=== PATIENT | female | born 1990 | race Caucasian/White ===

== ENCOUNTER 2020-04-11 15:29 | Outpatient (CLI) | payer OTHER, SELFPAY ==
--- NOTE | ~2020-04-11 | US_ITS ---
EXAMINATION: US pelvic complete w TV DATE: 04/11/2020 16:05 INDICATION: Enlarged ovary TECHNIQUE: Multiple transabdominal and endovaginal sonographic images of the pelvis were obtained. COMPARISON: CT, 10/18/2017 FINDINGS: The uterus measures 8.3 x 3.4 x 4.8 cm. The endometrial complex measures 12 mm. The right o vary measures 3.4 x 2.6 x 2.2 cm. The left ovary measures 3.3 x 2.3 x 1.8 cm. Again seen are prominen t vessels of the left adnexa. There is normal vascular flow in the ovaries. There is no free fluid in the pelvis. IMPRESSION: 1. Normal size ovaries. Chronic enlargement of the left adnexal vessels, consistent with pelvic venou s insufficiency. Reviewed, dictated and finalized at location A. IMPRESSION: 1. Normal size ovaries. Chronic enlargement of the left adnexal vessels, consis tent with pelvic venous insufficiency.
== END 2020-04-11 15:30 | disposition home or self-care (01) ==
PROVIDERS: PCP Internal Medicine; Visit Provider Obstetrics & Gynecology
DX: R10.2 Pelvic and perineal pain (principal)
CPT/HCPCS: 76830; 76856

== ENCOUNTER 2020-05-28 16:37 | Emergency (ER) | payer OTHER, SELFPAY ==
--- NOTE | ~2020-05-28 | XR_ITS ---
XR toe 5th RT min 2V 05/28/2020 17:14 INDICATION: Right fifth toe pain PROCEDURE: 3 views right fifth toe COMPARISON: 10/07/2015 FINDINGS: Fracture, dislocation or subluxation is not identified. The soft tissues appear within norm al limits. No foreign bodies are identified. IMPRESSION: 1: NO ACUTE BONE OR JOINT ABNORMALITY IDENTIFIED. Reviewed, dictated and finalized at location A.
--- NOTE | 2020-05-28 16:44 | ED.LOWEXIN ---
HPI - Extremity Injury (Lower) General Chief Complaint: Extremity Injury, Lower Stated Complaint: Right toe injury Time Seen by Provider: 05/28/20 16:44 Source: patient and RN notes reviewed History of Present Illness HPI Narrative: Patient is a 30-year-old female who presents the urgent care with complaints of a right great toe injury. Patient states that she was walking up the steps Thursday and flip-flo and stubbed her right great toe on the concrete stair. Patient states that she took Tylenol today due to the pain. Patient states that the pain was so bad that it was causing her to vomit while at work . Patient states that Thursday and Thursday the pain was not as bad because she was elevating and icing. No other acute complaints. No acute distress noted. Patient read the plan of care. Related Data Allergies Allergy/AdvReac Type Severity Reaction Status Date / Time red dye Allergy Unknown Unknown Verified 05/28/20 16:53 trazodone AdvReac Unknown nightmares Verified 05/28/20 16:53 Review of Systems Review of Systems: Narrative: CONSTITUTIONAL: Denies fever, chills, or sweats. EYES: Denies visual changes, redness, or discharge. ENT: Denies rhinorrhea, congestion, sore throat, or otalgia. CARDIOVASCULAR: Denies chest pain, palpitations, or edema. RESPIRATORY: Denies cough or dyspnea. GASTROINTESTINAL: Denies abdominal pain, nausea, vomiting, or diarrhea. GENITOURINARY: Denies dysuria or hematuria. SKIN: Reports of a wound to the tip of the right pinky toe MUSCULOSKELETAL: Reports of lateral right foot pain and right pinky toe pain NEUROLOGIC: Denies headache, numbness, or weakness. All other systems reviewed are negative, except as documented in HPI. [facility] Past Medical History Medical History (Updated 05/28/20 @ 17:24 by FELISA Pena) Acute Crohn's disease without complication IBS (irritable bowel syndrome) Social History Social History Gender identity (if verbalized by the patient): Female Comments At the time of my signature, I reviewed and agree with the nursing past medical, surgical, social, and family history. There is no relevant family history pertinent to the patient complaint. Exam Narrative: Exam Narrative: GENERAL: This is a well-nourished, well-developed patient, in no apparent distress. HEAD: normocephalic, atraumatic. EYES: PERRL. Sclera clear/white. Vision is grossly intact. EARS: External ears normal NOSE: External nose normal with no obvious nasal discharge, nares without redness, no rhinorrhea. THROAT: Mucous membranes moist NECK: Neck supple SKIN: 0.5 circular skin abrasion noted to the tip of the right fifth toe NEURO: awake, alert, and oriented to person, place and time. There were no obvious focal neurologic abnormalities. EXTREMITIES: Mild ecchymosis noted to the lateral aspect of the right foot with moderate tenderness. Capillary refill to right lower extremity less than 2 seconds with positive strong right pedal pulse. Range of motion to right foot within normal limits. Course Vital Signs Vital signs: Vital Signs Temperature 98.6 F 05/28/20 16:45 Pulse Rate 75 05/28/20 16:45 Respiratory Rate 18 05/28/20 16:45 Blood Pressure 132/83 05/28/20 16:45 Pulse Oximetry 100 05/28/20 16:45 Temperature 98.7 F 05/28/20 16:53 Pulse Rate 104 H 05/28/20 16:53 Respiratory Rate 16 05/28/20 16:53 Blood Pressure 121/68 05/28/20 16:53 Pulse Oximetry 100 05/28/20 16:53 Reviewed MDM - Extremity Injury (Lower) MDM Narrative Medical decision making narrative: Reviewed x-ray results with the patient. She is aware the x-ray was negative for fracture, foreign body. Advised the patient to soak the toe and plain Dial soap and water at least twice a day and make sure she is cleaning the wound appropriately. Be aware of signs and symptoms of infection such as redness, swelling, increased pain to the wound. May
[2020-05-28 16:45] VITALS: BP 132/83; PULSE 75; RESP 18; TEMP 37; O2SAT 100
== END 2020-05-28 17:20 | disposition home or self-care (01) ==
PROVIDERS: Emergency Provider Nurse Practitioner Family; PCP Internal Medicine
DX: S90.121A Contusion of right lesser toe(s) without damage to nail, initial encounter (principal); W22.8XXA Striking against or struck by other objects, initial encounter
CPT/HCPCS: 73660; 99213; G0463

== ENCOUNTER 2021-10-08 14:31 | Emergency (ER) | payer SELFPAY ==
--- NOTE | 2021-10-08 15:10 | ED.SKABFB ---
HPI - Skin/Abscess/Foreign Bdy General Chief complaint: Extremity Injury, Lower Stated complaint: Thinks she has spider bite behind knee Time Seen by Provider: 10/08/21 15:10 Source: patient Mode of arrival: ambulatory History of Present Illness HPI narrative: 31-year-old female with a history of Crohn's disease, IBS, colonic polyps presents with -- left popliteal fossa abscess measuring 2.5 cm. -- Severe pain in the left popliteal fossa. No fever or chills. No prior abscesses are history of MRSA. MD complaint: abscess/boil Onset (ago): day(s) ( 1st noticed 2 days ago but the abscess seemed to have developed over the past 24 hours) Tetanus up to date: no Location: LLE Severity: moderate Severity scale (1-10): 8 Quality: aching Pain Consistency: constant Relieving factors: none Exacerbating factors: none Associated symptoms: denies other symptoms Treatments prior to arrival: none Related Data Allergies Allergy/AdvReac Type Severity Reaction Status Date / Time red dye Allergy Unknown Unknown Verified 10/08/21 15:17 trazodone AdvReac Unknown nightmares Verified 10/08/21 15:17 Review of Systems Review of Systems: All systems reviewed & are unremarkable except as noted in HPI and below Constitutional: Constitutional: Reports no additional constitutional complaints Eyes: Eyes: Reports as per HPI ENT: Reports system reviewed and no additional complaints, except as documented Cardiovascular: Cardiovascular: Reports no additional cardiovascular complaints Respiratory: Respiratory: Reports no additional respiratory complaints Gastrointestinal: Gastrointestinal: Reports no additional gastrointestinal complaints Genitourinary: Genitourinary: Reports other ( amenorrhea for the past 2 months) Musculoskeletal: Musculoskeletal: Reports limited range of motion ( limited left knee joint movement) Neurologic: Reports system reviewed and no additional complaints, except as documented Psychiatric: Psychiatric: Reports no additional psychiatric complaints Endocrine: Endocrine: Reports no additional endocrine complaints Hematologic/Lymphatic: Hematologic/Lymphatic: Reports no additional hematologic/lymphatic complaints Allergic/Immunologic: Allergic/Immunologic: Reports no additional allergic/immunologic complaints [facility] Past Medical History Medical History Acute Crohn's disease without complication Colonic polyp IBS (irritable bowel syndrome) Family History Family History Other Colon polyp Social History Social History Gender identity (if verbalized by the patient): Female Exam Const: General: cooperative and anxious Nutritional Appearance: malnourished Orientation/consciousness: oriented to person, oriented to place, oriented to time and patient oriented x3 Limitations: no limitations HENMT: Head: normal to inspection Ears: hearing grossly normal bilaterally General nose exam: Normal external nose present Face and sinus: normal facial exam, sinuses nontender and face symmetric Mouth: Yes Normal oral and palatal mucosa present Teeth and gingiva: dentition normal Throat: posterior oropharynx normal Eyes: General: appearance normal, both eyes and all related structures Neck: Neck: normal visual inspection, full ROM and no lymphadenopathy Resp: Effort & Inspection: normal respiratory effort and able to speak in complete sentences Auscultation: clear to auscultation bilaterally Cardio: Jugular venous distension: no JVD Palpation: normal PMI Rate: regular rate Rhythm: regular rhythm and abnormal rhythm Heart sounds: S1 normal heart sound present and S2 normal heart sound present Peripheral pulses: Peripheral pulses 2+ throughout GI: Inspection: normal to inspection Auscultation: normal bowel sounds Other: no tenderness/ rigidity /re
[2021-10-08 15:13] VITALS: BP 116/85; PULSE 98; RESP 20; TEMP 36.8; O2SAT 98
[2021-10-08] MEDS: ONDANSETRON HCL ODT 4 MG TABLET PO (15:53)
[2021-10-08 16:01] LABS: Pregnancy On Board Control Positive; Urine Pregnancy Test Negative
[2021-10-08 16:03] LABS: Basophils Percent Auto 0.8 % (0.0-1.0); Eosinophils Absolute Auto 0.17 K/mm3 (0.02-0.50); Eosinophils Percent Auto 1.3 % (1.0-6.0); Hematocrit 48.5 % (35.0-49.0); Hemoglobin 16.2 g/dL (12.0-15.0); Immature Granulocyte Absolute 0.04 K/mm3 (0.00-0.00); Immature Granulocyte Percent A 0.3 % (0.0-0.0); Lymphocytes Absolute Auto 2.13 K/mm3 (1.10-4.50); Lymphocytes Percent Auto 16.8 % (18.0-42.0); Mean Corpuscular HGB Conc 33.4 g/dL (32.0-36.0); Mean Corpuscular Hemoglobin 31.3 pg (27.0-31.0); Mean Corpuscular Volume 93.8 fL (78.0-102.0); Mean Platelet Volume 9.3 fl (9.2-11.8); Monocytes Absolute Auto 1.25 K/mm3 (0.10-0.90); Monocytes Percent Auto 9.9 % (2.0-11.0); Neutrophils Percent Auto 70.9 % (50.0-70.0); Platelet Count Result 361 K/mm3 (150-420); Red Blood Count 5.17 M/mm3 (4.20-5.40); Red Cell Distribution Width 13.9 % (11.6-14.4); White Blood Count 12.7 K/mm3 (4.8-10.8)
[2021-10-08] MEDS: HYDROmorphone HCL INJ (*CRX) 2 MG/ML VIAL 1 MG IM (16:09)
[2021-10-08 16:19] LABS: Alanine Aminotransferase 18 U/L (14-59); Albumin Level 4.3 g/dL (3.4-5.0); Alkaline Phosphatase 137 U/L (46-116); Anion Gap 9 mmol/L (8-16); Aspartate Amino Transferase 12 U/L (15-37); Bilirubin,Total 0.6 mg/dL (0.00-1.00); Blood Urea Nitrogen 10 mg/dL (7-18); Calcium 9.2 mg/dL (8.5-10.1); Carbon Dioxide 28 mmol/L (21-32); Chloride 101 mmol/L (98-108); Estimated CRCL calculation 73 ml/min; Estimated Glomerular Filt Rate > 60; Glucose 82 mg/dL (70-99); Osmolality Calculated 284 mOsm/kg (285-295); Potassium 3.7 mmol/L (3.5-5.1); Sodium 138 mmol/L (136-145); Total Protein 8.5 g/dL (6.4-8.2)
[2021-10-08 16:24] LABS: Lactic Acid Reflex 0.9 mmol/L (0.4-2.0)
[2021-10-08] MEDS: TETANUS,DIPHTHERIA,AC PERTUSSIS ADULT 0.5 ML (ADACEL) IM (16:41)
[2021-10-08] MEDS: AMOXICILLIN/CLAVULANATE K 875-125 MG TAB 1 TABLET (16:42)
[2021-10-08 17:20] VITALS: BP 126/85; PULSE 89; RESP 20; TEMP 36.8; O2SAT 97
== END 2021-10-08 17:21 | disposition home or self-care (01) ==
PROVIDERS: Emergency Provider Internal Medicine Critical Care Medicine; PCP Internal Medicine
DX: L02.416 Cutaneous abscess of left lower limb (principal); E86.0 Dehydration
CPT/HCPCS: 10061; 36415; 80053; 81025; 83605; 85025; 87040; 87070; 87075; 87147; 87186; 87205; 90471; 90715; 96372; 99283; A9270; J1170

== ENCOUNTER 2024-06-24 09:36 | Emergency (ER) | payer SELFPAY ==
--- NOTE | ~2024-06-24 | CT_ITS ---
EXAMINATION: CT abdomen pelvis w con DATE: 06/24/2024 12:23 INDICATION: Left abdominal pain. TECHNIQUE: Computed tomography (CT) of the abdomen and pelvis was performed with 100 mL Omnipaque 350 intravenous contrast. Automated exposure control and iterative reconstruction technique were employe d. The dose-length product was 222.35 mGy-cm. COMPARISON: CT abdomen and pelvis 10/18/17 FINDINGS: The visualized portions of the lung bases are clear without pneumonia or pleural effusion. The heart size is normal. No pericardial effusion. The liver and spleen are normal. There are changes of cholecystectomy. The pancreas, adrenal glands, and kidneys are normal. There is diverticulosis of the colon without evidence of diverticulitis. There are no dilated loops of bowel. The appendix is n ormal. There are no pathologically enlarged lymph nodes. There is no free intraperitoneal fluid. Ther e is mild lumbar spondylosis. IMPRESSION: 1. No etiology for the patient's symptoms. Reviewed, dictated and finalized at location A.
[2024-06-24 09:46] VITALS: BP 130/97; PULSE 94; RESP 18; TEMP 36.4; O2SAT 100
[2024-06-24 11:40] LABS: BEDSIDEPREGUCG Negative
[2024-06-24 11:43] LABS: Basophils Absolute Auto 0.1 K/mm3 (0.0-0.1); Eosinophils Absolute Auto 0.1 K/mm3 (0-0.3); Eosinophils Percent Auto 1.1 % (0-4.4); Hematocrit 41.9 % (37.0-47.0); Hemoglobin 13.5 g/dL (12.0-15.0); Immature Granulocyte Absolute 0.01 K/mm3 (0.00-0.031); Immature Granulocyte Percent A 0.1 % (0-0.5); Lymphocytes Percent Auto 21.4 % (18.3-44.2); Mean Corpuscular HGB Conc 32.2 g/dl (32-36); Mean Corpuscular Hemoglobin 29.9 pg (26-34); Mean Corpuscular Volume 92.9 fl (80-100); Monocytes Absolute Auto 0.7 K/mm3 (0.1-0.6); Monocytes Percent Auto 10.3 % (2.6-8.5); Neutrophils Absolute Auto 4.6 K/mm3 (1.3-6.7); Neutrophils Percent Auto 66.1 % (45.5-73.1); Platelet Count Result 359 k/mm3 (150-375); Red Blood Count 4.51 M/mm3 (4.2-5.4); Red Cell Distribution Width 13.5 % (11.5-14.5)
[2024-06-24 11:46] LABS: Add Urine Microscopic? NO; Appearance Urine Clear (Clear); Bilirubin Urine Negative (Negative); Blood Urine Negative (Negative); Color Urine Yellow (Yellow); Glucose Urine UA Negative (Negative); Ketones Urine Negative (Negative); Leukocyte Esterase Ur Negative LEU/UL (Negative); Nitrate Urine Negative (Negative); Protein Urine Negative (Negative); Specific Grav Ur 1.018 (1.001-1.035); Urobilinogen Urine 0.2 mg/dL (<2.0); pH Urine 7.5 (5.0-9.0)
[2024-06-24 11:57] LABS: Alanine Aminotransferase 20 U/L (6-35); Albumin Level 4.7 g/dL (3.5-5.1); Alkaline Phosphatase 99 U/L (38-126); Anion Gap 8 mmol/L (4-12); Aspartate Amino Transferase 28 U/L (14-36); Bilirubin,Total 0.5 mg/dL (0.2-1.3); Blood Urea Nitrogen 8 mg/dL (7-17); Calcium 9.1 mg/dL (8.4-10.2); Carbon Dioxide 23 mmol/L (22-30); Chloride 106 mmol/L (98-107); Estimated CRCL calculation 103 ml/min; Estimated Glomerular Filt Rate > 60; Glucose 86 mg/dL (65-110); Lipase 105 U/L (23-300); Potassium 4.2 mmol/L (3.4-5.0); Sodium 137 mmol/L (137-145)
[2024-06-24] MEDS: SODIUM CHLORIDE 0.9% IV 1,000 ML 999 ML IV CONT (12:00)
[2024-06-24] MEDS: ONDANSETRON INJ 4 MG/2 ML VIAL IV PUSH (12:00)
[2024-06-24] MEDS: MORPHINE SULFATE (*CRX) 4 MG/ML INJ IV PUSH (12:01)
--- NOTE | 2024-06-24 12:36 | ED.GENADULT ---
HPI - General Adult General Chief complaint: Abdominal Pain Stated complaint: Left Flank Pain Time Seen by Provider: 06/24/24 11:23 History of Present Illness HPI narrative: Patient is a 34-year-old female who presents ER with left-sided abdominal pain/flank pain. Sudden onset today while or. Caused her to fall to the ground. She has had a mild stinging when she urinates. No urinary frequency urgency. No fevers or chills or sweats. Patient has been having diarrhea for 3 days. No blood in her stool. She has history of diverticulitis and no history of kidney stones. She has been having some nausea associated with this. No known sick contacts. No alleviating factors. Related Data Allergies Allergy/AdvReac Type Severity Reaction Status Date / Time red dye Allergy Unknown Unknown Verified 10/08/21 15:17 trazodone AdvReac Unknown nightmares Verified 10/08/21 15:17 Review of Systems Review of Systems: All systems reviewed & are unremarkable except as noted in HPI and below Constitutional: Constitutional: Reports no additional constitutional complaints ENT: Reports system reviewed and no additional complaints, except as documented Cardiovascular: Cardiovascular: Reports no additional cardiovascular complaints Respiratory: Respiratory: Reports no additional respiratory complaints Gastrointestinal: Gastrointestinal: Reports abdominal pain, Reports diarrhea, Reports nausea and Reports vomiting Genitourinary: Genitourinary: Reports no additional female genitourinary complaints Integumentary/Breasts: Skin/Breast: Reports system reviewed and no additional complaints, except as docu PMFSH Past Medical History Medical History Acute Crohn's disease without complication Colonic polyp IBS (irritable bowel syndrome) Family History Family History Other Colon polyp Social History Social History Gender identity (if verbalized by the patient): Female Exam Narrative: GENERAL: Well-appearing, well-nourished, and in no acute distress. HEAD: Normocephalic, atraumatic. ENT: Mucous membranes moist. CHEST: Clear to auscultation. No respiratory distress. HEART: Regular rate and rhythm. Normal peripheral pulses. ABDOMEN: Soft, tender to palpation left upper quadrant with guarding, nondistended. No CVA tenderness EXTREMITIES: Normal range of motion. No edema. SKIN: Warm, dry, no rash. NEURO: Alert and oriented x3. PSYCH: Normal mood and affect. Course Vital Signs Vital signs: Vital Signs Temperature 97.6 F 06/24/24 09:46 Pulse Rate 94 06/24/24 09:46 Respiratory Rate 18 06/24/24 09:46 Blood Pressure 130/97 H 06/24/24 09:46 Pulse Oximetry 100 06/24/24 09:46 Oxygen Delivery Room Air 06/24/24 09:46 Temperature 97.6 F 06/24/24 09:46 Pulse Rate 94 06/24/24 09:46 Respiratory Rate 18 06/24/24 09:46 Blood Pressure 130/97 H 06/24/24 09:46 Pulse Oximetry 100 06/24/24 09:46 Oxygen Delivery Room Air 06/24/24 09:46 Medical Decision Making MDM Narrative Medical decision making narrative: -Course: Patient resting comfortably. Informed of results. -Co-morbidities complicating care: None -Social determinants of health: Works at the [employer] -External Chart Review: None -Hx from independent Sources: Patient -Independent interpretation of studies: Normal CBC/CMP/urinalysis. CT abdomen pelvis without acute pathology -Interventions: Zofran 4 mg, morphine 4 mg, normal saline 1 L. -Shared decision making / Disposition: Discharged home. Bentyl/simethicone prescriptions. Vital Signs Vital Signs: Vital Signs Temperature 97.6 F 06/24/24 09:46 Pulse Rate 94 06/24/24 09:46 Respiratory Rate 18 06/24/24 09:46 Blood Pressure 130/97 H 06/24/24 09:46 Pulse Oximetry 100 06/24/24 09:46 O
[2024-06-24 13:21] VITALS: BP 116/78; PULSE 76; RESP 16; TEMP 36.6; O2SAT 98
== END 2024-06-24 13:23 | disposition home or self-care (01) ==
PROVIDERS: Emergency Provider Emergency Medicine; PCP Internal Medicine
DX: R10.12 Left upper quadrant pain (principal); K58.9 Irritable bowel syndrome, unspecified; Z86.010 Personal history of colon polyps
CPT/HCPCS: 36415; 74177; 80053; 81003; 81025; 83690; 85025; 96361; 96374; 96375; 99284; J2270; J2405; J7030; Q9967

== ENCOUNTER 2024-08-12 15:04 | Emergency (ER) | payer SELFPAY ==
--- NOTE | ~2024-08-12 | CT_ITS ---
CT abdomen pelvis w con Ordering provider: Opal Frye PA-C History: 34 years Female with . LLQ abd pain . Comparison: None. Technique: CT abdomen and pelvis with IV and without oral contrast. Automated exposure control and it erative reconstruction technique were employed. The dose-length product was 254.84 mGy-cm. 100 mL Omn ipaque 350 was given IV. Findings: Bilateral breast implants. VISUALIZED LOWER CHEST: Dependent atelectatic changes. UPPER ABDOMINAL ORGANS: Liver: Normal. Slightly dilated intrahepatic ducts. Dilated CBD measuring 1.2 cm. Tiny hypodensity mo st likely a cyst seen in the subcapsular area of the left lobe anteriorly. Gallbladder: Status post cholecystectomy. Spleen: Normal. Stomach/duodenum: Normal. Pancreas: Normal. Adrenals: Normal. Kidneys: Normal. PELVIC ORGANS: The bladder is underfilled with slightly thickened wall. Uterus: Minimal fluid in the cavity. Ruptured follicle in the right ovary. BOWEL AND MESENTERY: Colon: No evidence of diverticulitis. Fecal material in the right side of the colon Normal appendix. Small Bowel: Normal. No obstruction. Peritoneum/mesentery: No free air or free fluid. No mesenteric lymphadenopathy. RETROPERITONEUM: Normal aorta. No retroperitoneal lymphadenopathy. MUSCULOSKELETAL: Superficial soft tissues: The superficial soft tissues are normal. Bones: Normal spine. IMPRESSION: 1. Intrahepatic biliary dilatation with dilated CBD most likely not pathological. 2. Ruptured follicle in the right ovary. 3. Constipation. 4. No evidence of appendicitis, diverticulitis or intestinal obstruction. Reviewed, dictated and finalized at location A. IMPRESSION: 1. Intrahepatic biliary dilatation with dilated CBD most likely not pathologic al. 2. Ruptured follicle in the right ovary. 3. Constipation. 4. No evidence of appendicitis, diverticulitis or intestinal obstruction.
[2024-08-12 15:24] VITALS: BP 151/96; PULSE 102; RESP 18; TEMP 37; O2SAT 100
[2024-08-12 16:25] VITALS: BP 137/93; PULSE 88; RESP 18; TEMP 36.8; O2SAT 96
[2024-08-12 18:26] VITALS: BP 119/81; PULSE 79; RESP 18; O2SAT 98
[2024-08-12 18:30] VITALS: BP 126/90; PULSE 78; RESP 18; O2SAT 98
[2024-08-12 18:31] LABS: Basophils Percent Auto 0.4 % (0.2-1.2); Eosinophils Absolute Auto 0.1 K/mm3 (0-0.3); Eosinophils Percent Auto 1.5 % (0-4.4); Hematocrit 42.7 % (37.0-47.0); Hemoglobin 14.5 g/dL (12.0-15.0); Immature Granulocyte Absolute 0.01 K/mm3 (0.00-0.031); Immature Granulocyte Percent A 0.1 % (0-0.5); Lymphocytes Absolute Auto 1.81 K/mm3 (0.9-3.2); Lymphocytes Percent Auto 24.6 % (18.3-44.2); Mean Corpuscular Hemoglobin 30.5 pg (26-34); Mean Corpuscular Volume 89.7 fl (80-100); Mean Platelet Volume 9.4 fl (7.4-10.4); Monocytes Absolute Auto 0.7 K/mm3 (0.1-0.6); Monocytes Percent Auto 10.1 % (2.6-8.5); Neutrophils Absolute Auto 4.7 K/mm3 (1.3-6.7); Neutrophils Percent Auto 63.3 % (45.5-73.1); Platelet Count Result 323 k/mm3 (150-375); Red Blood Count 4.76 M/mm3 (4.2-5.4); Red Cell Distribution Width 13.5 % (11.5-14.5); White Blood Count 7.4 K/mm3 (4.5-10.0)
[2024-08-12 18:42] LABS: Alanine Aminotransferase 19 U/L (6-35); Alkaline Phosphatase 87 U/L (38-126); Anion Gap 13 mmol/L (4-12); Aspartate Amino Transferase 28 U/L (14-36); Bilirubin,Total 0.3 mg/dL (0.2-1.3); Blood Urea Nitrogen 6 mg/dL (7-17); Calcium 9.5 mg/dL (8.4-10.2); Carbon Dioxide 21 mmol/L (22-30); Chloride 104 mmol/L (98-107); Estimated CRCL calculation 107 ml/min; Estimated Glomerular Filt Rate > 60; Glucose 89 mg/dL (65-110); Lipase 391 U/L (23-300); Potassium 3.7 mmol/L (3.4-5.0); Sodium 138 mmol/L (137-145)
--- NOTE | 2024-08-12 18:56 | ED.ABDPAIN ---
HPI - Abdominal Pain General Chief Complaint: Abdominal Pain Stated Complaint: abd pain Time Seen by Provider: 08/12/24 18:07 History of Present Illness HPI narrative: 34-year-old female with reported history of recurrent diverticulitis presents to the emergency department with abdominal pain. Patient states the abdominal pain has been going on intermittently for several months. States she was in the bathroom today at work having dark stools and was sent home for this. She has been following up with her PCP is been treating her diverticulitis with antibiotics. Most recently she was on Cipro Flagyl but had to discontinue this after 24 hours due to a rash that developed. She has not been on antibiotics for approximately 1 week. She is reporting pain to her left side, nausea and vomiting. She denies palpitations, chest pain or shortness of breath, syncope, dysuria, fever. She has a history of cholecystectomy. She has never seen a surgeon for her recurrent diverticulitis. During questioning, patient does make references to going to several different emergency departments in the area for this pain. She notes that her PCP told her that she should always go to [facility] from here on out, however she came here today because it is closer to her work. States sometimes she goes to [facility] as well. Related Data Allergies Allergy/AdvReac Type Severity Reaction Status Date / Time red dye Allergy Unknown Unknown Verified 08/12/24 15:29 ciprofloxacin Allergy Swelling Verified 08/12/24 15:29 ketorolac [From Toradol] Allergy Hives Verified 08/12/24 15:29 metronidazole [From Flagyl] Allergy Swelling Verified 08/12/24 15:29 trazodone AdvReac Unknown nightmares Verified 08/12/24 15:29 Review of Systems Review of Systems: All systems reviewed & are unremarkable except as noted in HPI and below PMFSH Past Medical History Medical History Acute Crohn's disease without complication Colonic polyp IBS (irritable bowel syndrome) Family History Family History Other Colon polyp Social History Social History Gender identity (if verbalized by the patient): Female Exam Narrative: GENERAL: Well-appearing, well-nourished, and in no acute distress. HEAD: Normocephalic, atraumatic. EYES: PERRLA and EOMI. ENT: Nares clear, no rhinorrhea or epistaxis. Mucous membranes moist. NECK: Supple. CHEST: Clear to auscultation. No respiratory distress. HEART: Regular rate and rhythm. No murmur heard. Normal peripheral pulses. ABDOMEN: Normoactive bowel sounds. Abdomen soft with tenderness and voluntary guarding in the suprapubic region, left lower quadrant and left upper quadrant. No rebound or rigidity. No CVA tenderness. EXTREMITIES: Normal range of motion. No edema. SKIN: Warm, dry, no rash. NEURO: No focal deficits. Alert and oriented x3 Course Vital Signs Vital signs: Vital Signs Temperature 98.6 F 08/12/24 15:24 Pulse Rate 102 H 08/12/24 15:24 Respiratory Rate 18 08/12/24 15:24 Blood Pressure 151/96 H 08/12/24 15:24 Pulse Oximetry 100 08/12/24 15:24 Oxygen Delivery Room Air 08/12/24 15:24 Temperature 97.9 F 08/12/24 19:01 Pulse Rate 84 08/12/24 22:19 Respiratory Rate 18 08/12/24 22:19 Blood Pressure 120/77 08/12/24 22:19 Pulse Oximetry 99 08/12/24 22:19 Oxygen Delivery Room Air 08/12/24 15:24 MDM - Abdominal Pain MDM Narrative Medical decision making narrative: 34-year-old female with reported history of recurrent diverticulitis presents to the emergency department for left-sided abdominal pain, nausea and vomiting. Vitals are stable. She is afebrile nontoxic again for tenderness and voluntary guarding to the suprapubic region and left upper and lower quadrants. CBC without leukocytosis or anemia. Chemistries sign
[2024-08-12 19:01] VITALS: BP 118/71; PULSE 80; RESP 18; TEMP 36.6; O2SAT 98
[2024-08-12 19:28] LABS: BEDSIDEPREGUCG Negative (Negative)
[2024-08-12 19:29] LABS: Prothrombin Time 13.1 Seconds (11.1-14.7)
[2024-08-12 19:30] LABS: Partial Thromboplastin Time 27.4 Seconds (22.3-36.8)
[2024-08-12] MEDS: ONDANSETRON INJ 4 MG/2 ML VIAL IV PUSH (19:32)
[2024-08-12] MEDS: SODIUM CHLORIDE 0.9% IV 1,000 ML 999 ML IV CONT (19:32)
[2024-08-12] MEDS: MORPHINE SULFATE (*CRX) 4 MG/ML INJ IV PUSH (19:33)
[2024-08-12 19:46] LABS: Lactic Acid Reflex 0.8 mmol/L (0.7-2.0)
[2024-08-12 19:47] LABS: Add Urine Microscopic? YES; Appearance Urine Clear (Clear); Bacteria Urine Rare /hpf; Bilirubin Urine Negative (Negative); Blood Urine 2+ (Negative); Color Urine Yellow (Yellow); Glucose Urine UA Negative (Negative); Ketones Urine 1+ mg/dL (Negative); Leukocyte Esterase Ur Trace LEU/UL (Negative); Nitrate Urine Negative (Negative); Non Pathogenic Casts 0-2; Protein Urine Negative (Negative); Specific Grav Ur 1.013 (1.001-1.035); Squamous Epithelial Cell Urine Few /hpf (Few); Urobilinogen Urine 0.2 mg/dL (<2.0); WBC Urine 0-5 /hpf (0-3)
--- NOTE | 2024-08-12 20:39 | PC.NURSE ---
Pt pacing in room, refusing to keep cardiac monitors intact. Reports pain & nausea have increased. Hayley MURPHY informed. Pt instructed Carito waiting on CT results before pain med.
[2024-08-12 22:19] VITALS: BP 120/77; PULSE 84; RESP 18; O2SAT 99
--- NOTE | 2024-08-12 22:21 | PC.NURSE ---
Pt upset with discharge plan. States I know constipation and this is not constipation! RN educated pt provider can only treat with the results of pts scans & labs. Pt states I have had a scan here before and it was read wrong pt then stormed out of department
== END 2024-08-12 22:26 | disposition home or self-care (01) ==
PROVIDERS: Physician Assistant; Emergency Provider Physician Assistant; PCP Internal Medicine
DX: R10.9 Unspecified abdominal pain (principal); K59.00 Constipation, unspecified; K50.90 Crohn's disease, unspecified, without complications
CPT/HCPCS: 36415; 74177; 80053; 81001; 81025; 83605; 83690; 85025; 85610; 85730; 96361; 96374; 96375; 99284; J2270; J2405; J7030; Q9967

== ENCOUNTER 2025-02-13 08:20 | Emergency (ER) | payer BC, SELFPAY ==
--- NOTE | ~2025-02-13 | CT_ITS ---
EXAMINATION: CT abdomen pelvis w con DATE: 02/13/2025 11:04 INDICATION: Left lower quadrant abdominal pain. TECHNIQUE: Computed tomography (CT) of the abdomen and pelvis was performed with 100 mL Omnipaque 350 intravenous contrast. Automated exposure control and iterative reconstruction technique were employe d. The dose-length product was 217.71 mGy-cm. COMPARISON: CT abdomen and pelvis 08/12/2024 FINDINGS: The visualized portions of the lung bases are clear without pneumonia or pleural effusion. The heart size is normal. No pericardial effusion. There are bilateral breast implants. There is a 6 mm cyst in the liver. There is mild intrahepatic biliary duct dilatation. The common duct is dilated to 13 mm. These findings are chronic and likely not clinically significant given the normal liver fun ction tests. There are changes of cholecystectomy. The spleen, pancreas, adrenal glands, and kidneys are normal. There is diverticulosis of the colon without evidence of diverticulitis. The appendix is normal. There are no dilated loops of bowel. There are no pathologically enlarged lymph nodes. There is no free intraperitoneal fluid. The left periuterine and ovarian veins are enlarged, consistent wit h pelvic venous insufficiency. There is moderate degenerative disc disease at L5-S1. IMPRESSION: 1. Pelvic venous insufficiency. Reviewed, dictated and finalized at location A.
[2025-02-13 08:30] VITALS: BP 117/79; PULSE 99; RESP 15; TEMP 36.4; O2SAT 100
--- OUTSIDE RECORDS SUMMARY | 2025-02-13 08:39 | XMS_ITS | Encounter Summary ---
Author Organization [facility] Address 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 Name Role Phone Chaim Sorto MD Primary Care Provider [phone] Reason for Visit * Reason Onset Date Comments [facility] Follow Up 12/18/2023 Encounter Details Date Type Department Care Team (Late Contact Info) Description 12/18/[address], [place] [address] Chaim Sorto MD [address] [place] [id number] [facility] Follow Up Social History Tobacco Use Types Packs/Day Years Used Date Smoking Tobacco: Every Day Cigarettes 0.3 1 Smokeless Tobacco: Never Alcohol Use Standard Drinks/Week Comments No 0 (1 standard drink = 0.6 oz pur e alcohol) socially Comments No Sex and Gender Information Value Date Recorded Sex Assigned at Not on file Legal 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 Gender Identity Not on file Sexual Orientation Not on file documented as of this encounter Plan of Treatment Upcoming Encounters Date Type Department Care Team (Late Contact Info) Description 06/13/2025 2:20 PM CDT Office Visit [address] [place] [address] Chaim Sorto MD [address] [place] [address] [address] [place] [phone] 11/01/2025 11:00 AM COAT PRESSER Office Visit [address] [place] [phone] Chaim Sorto MD [address] [place] [address] [address] [place] [phone] documented as of this encounter Visit Diagnoses Not on filedocumented in this encounter Additional Health Concerns Infection Onset Date Last Indicated Resolved Time R/O GI Pathogen 10/12/2024 10/12/2024 10/13/2024 1 :30 PM COAT PRESSER documented as of this encounter Care Teams Geothermal Electrical Engineer Relationship Specialty Start Date End Date Chaim Sorto MD PCP - General 10/24/09 documented as of this encounter
--- OUTSIDE RECORDS SUMMARY | 2025-02-13 08:39 | XMS_ITS | Encounter Summary ---
Author Organization [facility] Address [address] [place] [address] Care Team Providers Care Truck Bracer Name Role Phone Chaim Sorto MD Primary Care Provider [phone] Reason for Visit * Reason Comments Question Encounter Details Date Type Department Care Team (Late st Contact Info) Description 01/10/2025 Telephone [facility] Primary Care [address] [place] [address] Chaim Sorto MD [address] [facility] [address] [place] [address] Question Social History Tobacco Use Types Packs/Day Years Used Date Smoking Tobacco: Former Cigarettes 0.3 14 S tarted: 2008 Passive Smoke Exposure: Past Smokeless Tobacco: Never Alcohol Use Standard Drinks/Week Comments No 0 (1 standard drink = 0.6 oz pur e alcohol) socially Feeling Safe Answer Date Recorded Are you in a relationship wi th someone who hurts you emotionally and/or physically? 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 Call Notes (not required): bad migraine and panic attacks Caller is requesting: Work/School Absence Letter Has the patient been seen for this in the last 3 months? 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 encounter Plan of Treatment Upcoming Encounters Date Type Department Care Team (Late st Contact Info) Description 06/13/2025 2:20 PM CDT Office Visit [address], [place] [address] Chaim Sorto MD [address] [place] [phone] 11/01/2025 11:00 AM 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
--- OUTSIDE RECORDS SUMMARY | 2025-02-13 08:39 | XMS_ITS | Encounter Summary ---
Author Organization [facility] Address [address] [place] [address] Care Team Providers Care Senior Laboratory Technician Name Role Phone Chaim Sorto MD Primary Care Provider [phone] Reason for Visit * Reason Comments Hospital Follow Up Encounter Details Date Type Department Care Team (Late st Contact Info) Description 11/24/2024 Telephone [facility] Primary Care [address] [place] [address] Chaim Sorto MD [address] [facility] [address] [place] [address] Hospital Follow Up Social History Tobacco Use Types Packs/Day Years Used Date Smoking Tobacco: Former Cigarettes 0.3 14 S tarted: 2008 Passive Smoke Exposure: Current Smokeless Tobacco: Never Alcohol Use Standard Drinks/Week [...] on file Legal Sex Female 5:49 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 LMTCB ACT LENS FLASHING PUNCHER * Telephone Encounter - Chaim Sorto MD - 11/24/2024 12:14 PM CST ?? She can make appt if needed ACT LENS FLASHING PUNCHER * Telephone Encounter - Erendira Taylor LPN - 11/24/2024 10:23 AM CONTACT LENS FLASHING PUNCHER Pt had MRI and X-ray at [facility] on 11/22/24. States she went to for second opinion more imaging. refused. ACT LENS FLASHING PUNCHER * Telephone Encounter - Chaim Sorto MD - 11/24/2024 9:55 AM CST ? She can go to to get x ray ACT LENS FLASHING PUNCHER * Telephone Encounter - Blaine Gill - 11/24/2024 8:11 AM CST Copied from [facility] #[id number]. Topic: Patient or Caregiver Communication Request >> Nov 24, 2024 8:09 AM Bliane Bueno wrote: Patient or Caregiver requesting that a message be sent to Care Team Caller: Mary Carmen Contreras Patient/Caregiver Callback Number: Call Notes: The patient was seen at [facility] for a fall on 11/22/24. She said that she fractured her nose, hurst her left shoulder, elbow and wrist. The patient would like to knowif she could just request a x-ray closer to her home. Please advise patient. PSA was not able to schedule an appointment within 5 days. ACT LENS FLASHING PUNCHER documented in this encounter Plan of Treatment Upcoming Encounters Date Type Department Care Team (Late st Contact Info) Description 06/13/2025 2:20 PM CDT Office Visit [address] [place] [address] Chaim Sorto MD [address] [place] [phone] 11/01/2025 11:00 AM CONTACT LENS FLASHING PUNCHER Office Visit [address] [place] [address] Chaim Sorto MD [address] [place] [phone] documented as of this encounter Visit Diagnoses Not on filedocumented in this encounter Care Teams Senior Laboratory Technician Relationship Specialty Start Date End Date Chaim Sorto MD PCP - General 10/24/09 documented as of this encounter
--- OUTSIDE RECORDS SUMMARY | 2025-02-13 08:39 | XMS_ITS | Clinical Summary ---
Author Organization [facility] Address [address] [place] [id number] Care Team Providers Care Personal Injury Litigation Paralegal Name Role Phone Magalie Jay MD Primary Care Provider [phone] Allergies Active Allergy Reactions Criticality Noted Date Comments Diphenhydramine Hives 08/27/2023 Prochlorperazine Hives 02/03/2023 Orphenadrine Hives 08/27/2023 Trazodone Hives 02/03/2023 Medications ondansetron (ZOFRAN) 4 MG tablet Take 1 tablet (4 mg total) by mouth every 8 (eight) hours as needed for Nausea. Active ondansetron (ZOFRAN-ODT) 4 MG disintegrating tablet Take 1 tablet (4 mg total) by mouth every 8 (eight) hours as needed. 10 tablet Active cyclobenzaprine (FLEXERIL) 10 MG tablet Take 1 tablet (10 mg total) by mouth 2 (two) times daily as needed. Active Active Problems Problem Noted Date Diagnosed Date Cholelithiasis 02/03/2023 Encounters Date Type Department Care Team Description 11/22/2024 6:18 PM [facility] - 11/22/2024 11:35 PM [facility] Emergency [facility] Emergency Room [address] [place] [address] Nico Enriquez MD Alcohol Problem; Fall Discharge Disposition: Home or Self Care (Routine Discharge) 11/22/2024 Travel from Last 3 Months Social History Tobacco Use Types Packs/Day Years Used Date Smoking Tobacco: Former Cigarettes 0.2 10 0 11/23/2012 - 11/23/2022 Smokeless Tobacco: Never Tobacco Cessation:Counseling Given: Not Answered Comments Unknown Sex and Gender Information Value Date Recorded Sex Assigned at Not on file Legal Sex Female 12:33 PM CDT Gender Identity Not on file Sexual Orientation Not on file Last Filed Vital Signs Vital Sign Reading Time Taken Comments Blood Pressure 122/82 11/22/2024 11:27 PM [facility] Pulse 85 11/22/2024 11:27 PM [facility] Temperature 36.6 C (97.8 F) 11/22/2024 6:20 PM [facility] Respiratory Rate 14 11/22/2024 6:20 PM [facility] Oxygen Saturation 98% 11/22/2024 11:27 PM PS[facility] CNS Inhaled Oxygen Concentration - - Weight 61.2 kg (135 lb) 11/22/2024 6:20 PM [facility] Height 167.6 cm (5' 6 ) 11/22/2024 6:20 PM [facility] CNS Body Mass Index 21.79 11/22/2024 6:20 PM [facility] CNS Plan of Treatment Health Maintenance Due Date Last Done Comments Cervical Cancer Screening Pa p Smear (Age 30 to 64) Every 3 Years 1988 Annual Physical 1991 Hepatitis C 2006 Hepatitis B Vaccines (1 of 3 - 19+ 3-dose series) 2007 Cervical Cancer Screening Pa p with HPV Testing (Age 30 to 64) Every 5 Years 2018 Cervical Cancer Screening wi th HPV 2018 COVID-19 Vaccine (2023-2 5 season) 2024 Influenza Adult (#1) 2024 09/06/2019 DTaP, Tdap and Td Vaccines ( 4 - Td or Tdap) 10/08/2031 10/08/2021, 10/08/2021, 08/12/2012 HPV Vaccines Aged Out No longer eligi ble based on patient's age to complete this topic Meningococcal B Vaccine Aged Out No l onger eligible based on patient's age to complete this topic Meningococcal Vaccine Aged Out No evelyne grazyna eligible based on patient's age to complete this topic Pneumococcal Vaccine: Pediatrics (0 to 5 Years) and At-Risk Patients (6 to 64 Years) Aged Out No longer eligible b ased on patient's age to complete this topic RSV Immunizations Under 20 Months Aged Out No longer eligible b ased on patient's age to complete this topic Goals Goal Patient Goal Type Associated Problems Recent Progress Patient-Stated? 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 Procedure Name Priority Date/Time Associated Diagnosis Comments LACERATION REPAIR Routine 11/23/2024 2:4 [address] CHEST+ABD+PEL W CON STAT 9:[address] CERV SPINE WO CON STAT 11/22/2024 9:[address] HEAD WO CON STAT 11/22/2024 9:[address] FACIAL BONES WO CON STAT 9:09 PM PSYCHIATRIC CNS ETHANOL STAT 11/22/2024 8:35 PM [facility]IATRIC CNS COMPREHENSIVE METABOLIC PANEL STAT 11/22/2024 8:35 PM PSYCHIATRIC CNS CBC W/DIFF AUTOMATED STAT 11/22/2024 8:35 PM PSYCHIATRIC CNS TEST URINE STAT 11/22/2024 8:33 PM PSYCHIATRIC CNS from Last 3 Months Results * Lac Repair (11/23/2024 2:45 AM PSYCHIATRIC CNS) Narrative Nico Enriquez MD - 11/23/2024 2:45 AM PSYCHIATRIC CNS Nico Enriquez MD 11/23/2024 2:49 AM Lac Repair Date/Time: 11/23/2024 2:45 AM Performed by: Nico Enriquez MD Authorized by: Nico Enriquez MD Consent: Consent obtained: Verbal Consent given by: Patient Risks discussed: Infection, pain and poor cosmetic result [place] protocol: Procedure explained and questions answered to patient or proxy's satisfaction: yes Patient identity confirmed: Verbally with patient Anesthesia: Anesthesia method: Local infiltration Local anesthetic: Lidocaine 1% w/o epi Laceration details: Location: Face Face location: Nose Length (cm): 1.5 Pre-procedure details: Preparation: Patient was prepped and draped in usual sterile fashion Exploration: Wound exploration: entire depth of wound visualized Wound extent: no fascia violation noted and no foreign bodies/material noted Treatment: Area cleansed with: Povidone-iodine Amount of cleaning: Standard Visualized foreign bodies/material removed: no Skin repair: Repair method: Sutures Suture size: 6-0 Suture material: Nylon Suture technique: Simple interrupted Number of sutures: 3 Approximation: Approximation: Close Repair type: Repair type: Simple Post-procedure details: Dressing: Antibiotic ointment and non-adherent dressing Procedure completion: Tolerated Nico Enriquez MD PROCEDURE/MINOR SURGICAL O RDERABLES Final Result * CT CHEST+ABD+PEL W CON (11/22/2024 9:17 PM PSYCHIATRIC CNS) Anatomical Region Laterality Modality Chest, Abdomen, Pelvis Computed Tomography 11/22/2024 9:30 PM PS[facility]CHIATRIC CNS Impressions 11/22/2024 9:46 PM PSYCHIATRIC CNS IMPRESSION: 1.No CT evidence of acute traumatic injury to the thoracic or abdominal aorta 2.No acute cardiac or pulmonary injury 3.No acute fracture in the bony thorax. 4. No acute fracture or traumatic malalignment in the thoracolumbar spine pelvis or hips. ABDOMEN: The liver, spleen, pancreas adrenal glands and kidneys are grossly normal. Gallbladder surgically absent. There is no evidence of traumatic injury to the organs of the abdomen or pelvis. Both kidneys demonstrate symmetric uptake concentration and clearance of the contrast material with symmetric nephrograms and opacification of sharp calyces and normal size proximal renal pelvis on this single phase study indicating prompt normal renal function.. No hydronephrosis or ureteric calculi No retroperitoneal fluid or hemorrhage. GI: The stomach and small bowel are unremarkable. Normal air-filled appendix. The colon is normal in caliber and position. There is no bowel obstruction. No localized area that would indicate bowel wall hematoma or traumatic bowel wall injury. No free air or free fluid in the abdomen or pelvis. PELVIS: Normal urinary bladder is minimally filled. Normal bladder wall. Uterus: Normal position. Enhancing myometrium. Patulous hypodense endometrial cavity may reflective of phase of menstruation. Ovaries unremarkable. No free fluid in the posterior cul-de-sac. No extravasation of contrast in the pelvis that would suggest injury to the hollow collecting systems. IMPRESSION: 1. No CT evidence of acute injury to the solid organs or hollow viscus of the abdomen and pelvis. . Referred By: Interpreted By: Opal Adler DO, 11/22/2024 9:30 PM Narrative 11/22/2024 9:46 PM PSYCHIATRIC CNS [id number] [place] [address] CLINICAL INDICATION: 34-year-old female trauma. PHYSICAL EXAMINATION: Fall downstairs today after drinking. Tenderness throughout. Negative hCG previous breast surgery TECHNIQUE: CT of the chest, abdomen and pelvis was obtained in the axial projection following at 2 mm increments after administration of 80 cc of Isovue [id number]... Coronal and sagittal reconstructions were provided.. Intravenous contrast was injected via indwelling IV access site in the left antecubital fossa. No adverse contrast reaction. It should be noted that the dictations for the chest and abdomen and pelvis are contained within this one report. Dose lowering technique was used for this study which may include, but is not limited to, dose reduction techniques, automated exposure control, use of iterative reconstruction and ALARA (As low As Reasonably Achievable)/Image Gently techniques. COMPARISON: Contrast-enhanced CT abdomen and pelvis 07/26/2024 FINDINGS: CHEST: No pneumothorax. No localized opacities that would suggest pulmonary hemorrhage or pulmonary contusion. No pleural effusion or consolidation or findings that would suggest pulmonary edema. Normal heart size. No pericardial effusion. No hepatic venous reflux. No coronary artery calcifications. There is no mediastinal or hilar or axillary lymphadenopathy. No retroperitoneal or mesenteric iliac or inguinal lymphadenopathy. Bilateral breast implants. No evidence of capsular contraction nor acute capsular rent. VASCULAR IMAGING: No evidence of acute traumatic injury to the thoracic or abdominal aorta. All segments of each is normal in caliber. There is normal caliber 3 separate great vessels. Normal caliber and normal opacification of all the mesenteric arteries and single right and single left renal artery. There is no calcific or atheromatous disease in any of the vascular beds. BONE WINDOW IMAGING: The sternum and scapula and ribs are intact bilaterally. No acute fracture or traumatic malalignment in the thoracolumbar spine, pelvis or hips. . Procedure Note Opal Adler MD - 11/22/2024 [facility] [address] [place] [address] CLINICAL INDICATION: 34-year-old female trauma. PHYSICAL EXAMINATION: Fall downstairs today after drinking. Tendernessthroughout. Negative hCG previous breast surgery TECHNIQUE: CT of the chest, abdomen and pelvis was obtained in the axial projectionfollowing at 2 mm increments after administration of 80 cc of [id number]... Coronal and sagittal reconstructions were provided.. Intravenouscontrast was injected via indwelling IV access site in the leftantecubital fossa. No adverse contrast reaction. It should be noted that the dictations for the chest and abdomen andpelvis are contained within this one report. Dose lowering technique was used for this study which may include, but isnot limited to, dose reduction techniques, automated exposure control, useof iterative reconstruction and ALARA (As low As ReasonablyAchievable)/Image Gently techniques. COMPARISON: Contrast-enhanced CT abdomen and pelvis 07/26/2024 FINDINGS: CHEST: No pneumothorax. No localized opacities that would suggest pulmonaryhemorrhage or pulmonary contusion. No pleural effusion or consolidationor findings that would suggest pulmonary edema. Normal heart size. No pericardial effusion. No hepatic venous reflux.No coronary artery calcifications. There is no mediastinal or hilar or axillary lymphadenopathy. Noretroperitoneal or mesenteric iliac or inguinal lymphadenopathy. Bilateral breast implants. No evidence of capsular contraction nor acutecapsular rent. VASCULAR IMAGING: No evidence of acute traumatic injury to the thoracic or abdominal aorta.All segments of each is normal in caliber. There is normal caliber 3separate great vessels. Normal caliber and normal opacification of allthe mesenteric arteries and single right and single left renal artery.There is no calcific or atheromatous disease in any of the vascularbeds. BONE WINDOW IMAGING: The sternum and scapula and ribs are intact bilaterally. No acutefracture or traumatic malalignment in the thoracolumbar spine, pelvis orhips. . IMPRESSION: 1.No CT evidence of acute traumatic injury to the thoracic or abdominalaorta 2.No acute cardiac or pulmonary injury 3.No acute fracture in the bony thorax. 4. No acute fracture or traumatic malalignment in the thoracolumbar spinepelvis or hips. ABDOMEN: The liver, spleen, pancreas adrenal glands and kidneys are grossly normal.Gallbladder surgically absent. There is no evidence of traumatic injuryto the organs of the abdomen or pelvis. Both kidneys demonstrate symmetricuptake concentration and clearance of the contrast material with symmetricnephrograms and opacification of sharp calyces and normal size proximalrenal pelvis on this single phase study indicating prompt normal renalfunction.. No hydronephrosis or ureteric calculi No retroperitoneal fluid or hemorrhage. GI: The stomach and small bowel are unremarkable. Normal air-filledappendix. The colon is normal in caliber and position. There is no bowelobstruction. No localized area that would indicate bowel wall hematoma ortraumatic bowel wall injury. No free air or free fluid in the abdomen orpelvis. PELVIS: Normal urinary bladder is minimally filled. Normal bladder wall. Uterus: Normal position. Enhancing myometrium. Patulous hypodenseendometrial cavity may reflective of phase of menstruation. Ovariesunremarkable. No free fluid in the posterior cul-de-sac. Noextravasation of contrast in the pelvis that would suggest injury to thehollow collecting systems. IMPRESSION: 1. No CT evidence of acute injury to the solid organs or hollow viscus ofthe abdomen and pelvis. . Referred By: Interpreted By: Opal Adler DO, 11/22/2024 9:30 PM us Nico Enriquez MD CT Final Resu lt * CT HEAD WO CON (11/22/2024 9:11 PM PSYCHIATRIC CNS) Anatomical Region Laterality Modality Head Computed Tomogra phy 11/22/2024 9:30 PM PSYCHIATRIC CNS Impressions 11/22/2024 9:32 PM PSYCHIATRIC CNS IMPRESSION: No acute intracranial abnormality. Ordered By: NICO ENRIQUEZ Interpreted By: Macario Pitts MD, 11/22/2024 9:30 PM Narrative 11/22/2024 9:32 PM PSYCHIATRIC CNS [facility] [address] [place] [address] Examination: CT HEAD WO CON Exam time: 11/22/2024 8:50 PM Clinical history: Fall down stairs. Trauma. Comparison: No prior exam Technique: Axial images were obtained from the skull base superiorly through the vertex without intravenous contrast material injection. Coronal and sagittal multiplanar reconstruction images were obtained. CT dose reduction techniques were utilized. Findings: There is no evidence of intracranial hemorrhage. No evidence of effacement of cerebral sulci or mass effect upon the brain. No definitive evidence of abnormal density involving the brain. Quadrigeminal and basilar cisterns appear unremarkable. Pituitary, pineal, and craniovertebral junction regions appear unremarkable. Visualized paranasal sinuses appear clear. Mastoid air cells appear clear. No evidence of localized scalp hematoma. No evidence of calvarial fracture. Procedure Note Macario Pitts MD - 11/22/2024 [facility] [address] [place] [address] Examination: CT HEAD WO CON Exam time: 11/22/2024 8:50 PM Clinical history: Fall down stairs. Trauma. Comparison: No prior exam Technique: Axial images were obtained from the skull base superiorlythrough the vertex without intravenous contrast material injection.Coronal and sagittal multiplanar reconstruction images were obtained. CTdose reduction techniques were utilized. Findings: There is no evidence of intracranial hemorrhage. No evidence ofeffacement of cerebral sulci or mass effect upon the brain. No definitiveevidence of abnormal density involving the brain. Quadrigeminal andbasilar cisterns appear unremarkable. Pituitary, pineal, andcraniovertebral junction regions appear unremarkable. Visualized paranasalsinuses appear clear. Mastoid air cells appear clear. No evidence oflocalized scalp hematoma. No evidence of calvarial fracture. IMPRESSION: No acute intracranial abnormality. Ordered By: NICO ENRIQUEZ Interpreted By: Macario Pitts MD, 11/22/2024 9:30 PM us Nico Enriquez MD CT Final Resu lt * CT CERV SPINE WO CON (11/22/2024 9:11 PM PSYCHIATRIC CNS) Anatomical Region Laterality Modality Spine Computed Tomogra phy 11/22/2024 9:32 PM PSYCHIATRIC CNS Impressions 11/22/2024 9:35 PM PSYCHIATRIC CNS IMPRESSION: 1. No evidence of fracture or subluxation. 2. Degenerative changes as described. Ordered By: NICO ENRIQUEZ Interpreted By: Macario Pitts MD, 11/22/2024 9:32 PM Narrative 11/22/2024 9:35 PM PSYCHIATRIC CNS [address] [id number] [place] [id number] Examination: CT CERV SPINE WO CON Exam time: 11/22/2024 8:50 PM Clinical history: Trauma. Fall down stairs. Tenderness. Comparison: No prior exam Technique: Axial images were performed throughout the cervical spine. Coronal and sagittal multiplanar reconstruction images were obtained. CT dose reduction techniques were utilized. Findings: There is no evidence of prevertebral soft tissue swelling. Occiput C1 and C1-2 relationships appear unremarkable. Odontoid process appears intact. C2-3, C3-4, C4-5 levels appear unremarkable. There is moderate decrease intervertebral disc height at the C5-6 level with minimal anterior and moderate posterior vertebral body endplate spurring. Facet joint relationships and appearances appear unremarkable. Minimal posterior vertebral body endplate spurring C6-7 level with mild decrease intervertebral disc height. Mild reversal normal cervical lordosis centered at the C5-6 level which is nonspecific, although, may be secondary to degenerative change. There is no evidence of fracture or acute osseous abnormality throughout the cervical spine. Procedure Note Macario Pitts MD - 11/22/2024 [id number] [place] [address] Examination: CT CERV SPINE WO CON Exam time: 11/22/2024 8:50 PM Clinical history: Trauma. Fall down stairs. Tenderness. Comparison: No prior exam Technique: Axial images were performed throughout the cervical spine.Coronal and sagittal multiplanar reconstruction images were obtained. CTdose reduction techniques were utilized. Findings: There is no evidence of prevertebral soft tissue swelling. Occiput C1 and C1-2 relationships appear unremarkable. Odontoid processappears intact. C2-3, C3-4, C4-5 levels appear unremarkable. There is moderate decrease intervertebral disc height at the C5-6 levelwith minimal anterior and moderate posterior vertebral body endplatespurring. Facet joint relationships and appearances appear unremarkable. Minimal posterior vertebral body endplate spurring C6-7 level with milddecrease intervertebral disc height. Mild reversal normal cervical lordosis centered at the C5-6 level which isnonspecific, although, may be secondary to degenerative change. There is no evidence of fracture or acute osseous abnormality throughoutthe cervical spine. IMPRESSION: 1. No evidence of fracture or subluxation. 2. Degenerative changes as described. Ordered By: NICO ENRIQUEZ Interpreted By: Macario Pitts MD, 11/22/2024 9:32 PM us Nico Enriquez MD CT Final Resu lt * CT FACIAL BONES WO CON (11/22/2024 9:09 PM PSYCHIATRIC CNS) Anatomical Region Laterality Modality Facial Computed Tomogra phy 11/22/2024 9:46 PM PSYCHIATRIC CNS Impressions 11/22/2024 9:53 PM PSYCHIATRIC CNS IMPRESSION: Possible tiny right nasal bone fracture fragment. Referred By: Interpreted By: Aly Granado MD, 11/22/2024 9:46 PM Narrative 11/22/2024 9:53 PM PSYCHIATRIC CNS [facility] [address] [place] [address] EXAM: CT FACIAL BONES WO CON DATE: 11/22/2024 COMPARISON: None INDICATION: Unspecified facial trauma TECHNIQUE: Noncontrast imaging A dose lowering technique was used for this procedure, which may include, but is not limited to, dose reduction technique, automated exposure control, iterative reconstruction, ALARA (As Low As Reasonably Achievable), or Image Gently techniques. FINDINGS: Normal appearance of the eyes and orbital fat. Diffuse increased density in the fat of the nose is symmetric bilaterally. There is a 2 mm bone density anterior laterally at the nasal bones on the right side which could represent a tiny fracture fragment. This is best seen on the sagittal images. Minimal mucosal thickening in the right maxillary sinus. Procedure Note Aly Granado MD - [facility] [address] [facility] [place] [address] EXAM: CT FACIAL BONES WO CON DATE: 11/22/2024 COMPARISON: None INDICATION: Unspecified facial trauma TECHNIQUE: Noncontrast imaging A dose lowering technique was used for this procedure, which may include,but is not limited to, dose reduction technique, automated exposurecontrol, iterative reconstruction, ALARA (As Low As ReasonablyAchievable), or Image Gently techniques. FINDINGS: Normal appearance of the eyes and orbital fat. Diffuseincreased density in the fat of the nose is symmetric bilaterally. There is a 2 mm bone density anterior laterally at the nasal bones on theright side which could represent a tiny fracture fragment. This is bestseen on the sagittal images. Minimal mucosal thickening in the rightmaxillary sinus. IMPRESSION: Possible tiny right nasal bone fracture fragment. Referred By: Interpreted By: Aly Granado MD, 11/22/2024 9:46 PM us Nico Enriquez MD CT Final Resu lt * (ABNORMAL) COMPREHENSIVE METABOLIC PANEL (11/22/2024 8:35 PM PSYCHIATRIC CNS) GLUCOSE 109(H) 70 - 99 MG/DL 11/22/2024 9:04 PM [facility] BUN 6(L) 7 - 18 MG/DL 11/22/2024 9:04 PM [facility] CREATININE S/P/B 1.00 0.55 - 1.02 MG/DL 11/22/2024 9:04 PM [facility] SODIUM S/P/B 143 136 - 145 MMOL/L 11/22/2024 9:04 PM [facility] POTASSIUM S/P/B 3.5 3.5 - 5.1 MMOL/L 11/22/2024 9:04 PM [facility] CHLORIDE S/P/B 105 100 - 108 MMOL/L 11/22/2024 9:04 PM [facility] CO2 26.9 21 - 32 MMOL/L 11/22/2024 9:04 PM [facility] CALCIUM S/P/B 9.1 8.5 - 10.1 MG/DL 11/22/2024 9:04 PM [facility] BILIRUBIN TOTAL S/P/B 0.1(L) 0.2 - 1.2 MG/DL 11/22/2024 9:04 PM [facility] Comment: THIS ASSAY IS NOT RECOMMENDED FOR PATIENTS UNDERGOING TREATMENT WITH ELTROMBOPAG DUE TO THE POTENTIAL FOR FALSELY ELEVATED RESULTS. TOTAL PROTEIN S/P/B 8.6(H) 6.4 - 8.2 G/DL 11/22/2024 9:04 PM [facility] ALBUMIN S/P/B 4.5 3.4 - 5.0 G/DL 11/22/2024 9:04 PM [facility] AST 18 15 - 37 U/L 11/22/2024 9:04 PM [facility] ALT 22 14 - 55 U/L 11/22/2024 9:04 PM [facility] ALKALINE PHOSPHATASE S/P/B 100 50 - 136 U/L 11/22/2024 9:04 PM [facility] ANION GAP 11.1 5 - 15 MMOL/L 11/22/2024 9:04 PM [facility] BUN CREATININE RATIO 6.0 6 - 26 11/22/2024 9:04 PM [facility] A/G RATIO 1.1 1.0 - 2.0 RATIO 11/22/2024 9:04 PM [facility] GFR ESTIMATE 75(L) >90 ML/MIN/1.7 3 M2 11/22/2024 9:04 PM [facility] Comment: NOTE: eGFR is not calculated for patients <18 years of age. This is an estimated GFR calculation using the new CKD EPI creatinine equation without race and so does not require a correction factor for race. This estimated GFR should not be used for calculating drug doses. 11/22/2024 8:35 PM PSYCHIATRIC CNS Nico Enriquez MD LABORATORY Final Resu lt [facility] [address] [place] [address], * (ABNORMAL) CBC W/DIFF AUTOMATED (11/22/2024 8:35 PM PSYCHIATRIC CNS) WBC 7.86 4.50 - 11.00 x10'3/uL 11/22/2024 8:46 PM [facility] RBC 4.81 4.20 - 5.40 x10'6/uL 11/22/2024 8:46 PM [facility] HGB 14.6 12.0 - 16.0 G/DL 11/22/2024 8:46 PM [facility] HCT 43.4 38.0 - 48.0 % 11/22/2024 8:46 PM [facility] MCV 90.2 81.0 - 99.0 FL 11/22/2024 8:46 PM [facility] MCH 30.4 27.0 - 31.0 PG 11/22/2024 8:46 PM [facility] MCHC 33.6 32.0 - 36.0 G/DL 11/22/2024 8:46 PM [facility] RDW 12.7 11.5 - 14.5 % 11/22/2024 8:46 PM [facility] PLT 319 130 - 400 x10'3/uL 11/22/2024 8:46 PM [facility] MPV 9.2(L) 9.3 - 12.2 FL 11/22/2024 8:46 PM [facility] CBC COMMENT AUTOMATED RBC MORPHOLOGY AND PLATELET EVALUATION NORMAL 11/22/2024 8:46 PM [facility] NEUTROPHILS % 70.7 % 11/22/2024 8:46 PM [facility] LYMPHOCYTES % 19.5 % 11/22/2024 8:46 PM [facility] MONOCYTES % 7.8 % 11/22/2024 8:46 PM [facility] EOSINOPHILS 1.1 % 11/22/2024 8:46 PM [facility] BASOPHILS 0.6 % 11/22/2024 8:46 PM [facility] IMMATURE GRANS % 0.3 % 11/22/20 24 8:46 PM [facility] NRBC % 0.0 % 11/22/2024 8:46 PM [facility] ABS. NEUTROPHILS TOTAL 5.56 1.80 - 7.70 x10'3/uL 11/22/2024 8:46 PM [facility] ABS. LYMPHOCYTES 1.53 1.00 - 4.80 x10'3/uL 11/22/2024 8:46 PM [facility] ABS. MONOCYTES 0.61 0.24 - 0.86 x10'3/uL 11/22/2024 8:46 PM [facility] ABS. EOSINOPHILS 0.09 0.04 - 0.36 x10'3/uL 11/22/2024 8:46 PM [facility] ABS. BASOPHILS 0.05 0.01 - 0.08 x10'3/uL 11/22/2024 8:46 PM PSYCHIATRIC CNS [facility] ABS. IMMATURE GRANULOCYTES 0.02 0.00 - 0.49 x10'3/uL 11/22/2024 8:46 PM PSYCHIATRIC CNS [facility] ABS. NUCLEATED RBC'S 0.00 0.00 - 0.01 x10'3/uL 11/22/2024 8:46 PM PSYCHIATRIC CNS [facility] 11/22/2024 8:35 PM PSYCHIATRIC CNS us Nico Enriquez MD LABORATORY Final Resu lt [facility] [address] [place] [address], [place] [phone] * (ABNORMAL) ETHANOL (11/22/2024 8:35 PM PSYCHIATRIC CNS) ALCOHOL S/P/B 0.233(H) <0.003 G/DL 11/22/2024 9:04 PM PSYCHIATRIC CNS [facility] 11/22/2024 8:35 PM PSYCHIATRIC CNS us Nico Enriquez MD LABORATORY Final Resu lt [facility] [address] [place] [address], [place] [phone] * TEST URINE (11/22/2024 8:33 PM PSYCHIATRIC CNS) URINE HCG TEST NEGATIVE NEGATIVE 11/22/2024 8:50 PM PSYCHIATRIC CNS [facility] Comment: VERY DILUTE URINE SPECIMENS MAY NOT CONTAIN SENIOR COMPLIANCE ANALYST LEVELS OF HCG. IF IS STILL SUSPECTED, A SERUM HCG TEST IS RECOMMENDED. URINE SPECIMEN FROM [facility] / Unknown 11/22/2024 8:33 PM PSYCHIATRIC CNS us Nico Enriquez MD URINE ORDERABLES Final Res ult [facility] [address] [place] [address], from Last 3 Months Insurance [facility] Advance Directives * Full Code (Latest Code Status on File) Date Activated Date Inactivated Comments 02/03/2023 8:44 PM 02/06/2023 5:26 PM Care Teams Personal Injury Litigation Paralegal Relationship Specialty Start Date End Date Magalie Jay MD [address] [place] [address] PCP - General FAMILY PRACTICE 01/30/23
--- OUTSIDE RECORDS SUMMARY | 2025-02-13 08:39 | XMS_ITS | Encounter Summary ---
Author Organization [facility] Address [address] [place] [address] Care Team Providers Care Field Instructor Name Role Phone Cahim Sorto MD Primary Care Provider [phone] Reason for Visit * Reason Comments Clinical Consult Before Scheduling Encounter Details Date Type Department Care Team (Late st Contact Info) Description 12/29/2024 Telephone [facility] Primary Care [address] [place] [address] Chaim Sorto MD [address] [facility] [address] [place] [address] Clinical Consult Before Scheduling Social History Tobacco Use Types Packs/Day Years [...] on file Legal Sex Female 5:49 AM V BELT CURER Gender Identity Not on file Sexual Orientation Not on file documented as of this encounter Miscellaneous Notes * Telephone Encounter - Angelita Talbert - 12/29/2024 12:51 PM CST Copied from [facility] #[id number]. Topic: Symptomatic Care >> Dec 29, 2024 12:46 PM Angelita Beasley wrote: Caller has new symptoms and is seeking care. Age Range/Symptom: Adult: 18+ - Headache or Migraine Is your headache sudden onset and severe? Yes Caller Name: Mary Carmen Contreras Callback Number: Telephone Information: Call Notes: patient states around 8:00 pm she had a migraine headache and lost track of time, states she did not fall asleep, but when she realized it, it was 11:00 - unable to transfer to [employer] line, patient had to get off the phone to go back to work, states to message her via my [employer] lost before call transferred. V BELT CURER documented in this encounter Plan of Treatment Upcoming Encounters Date Type Department Care Team (Late st Contact Info) Description 06/13/2025 2:20 PM CDT Office Visit [address] [place] [address] Chaim Sorto MD [address] [place] [phone] 11/01/2025 11:00 AM V BELT CURER Office Visit [address] [place] [address] Chaim Sorto MD [address] [place] [address] [address] [place] [address] documented as of this encounter Visit Diagnoses Not on filedocumented in this encounter Care Teams Field Instructor Relationship Specialty Start Date End Date Chaim Sorto MD PCP - General 10/24/09 documented as of this encounter
--- OUTSIDE RECORDS SUMMARY | 2025-02-13 08:39 | XMS_ITS | Encounter Summary ---
Author Organization [facility] Address [address] [place] [address] Care Team Providers Care Port Surveyor Name Role Phone Chaim Sorto MD Primary Care Provider [phone] Reason for Visit * Reason Onset Date Comments Medication Refill 07/02/2022 Encounter Details Date Type Department Care Team (Late st Contact Info) Description 07/02/2022 Telephone [facility] Primary Care [address] [place] [address] Chaim Sorto MD [address] [place] [address] [address] [place] [address] Medication Refill Social History Tobacco Use Types Packs/Day Years Used Date Smoking Tobacco: Every Day Cigarettes 0.3 1 Smokeless Tobacco: Never Alcohol Use Standard Drinks/Week Comments No 0 (1 standard drink = 0.6 oz pur e alcohol) socially Comments No Sex and Gender Information Value Date Recorded Sex Assigned at Not on file Legal Sex Female 5:49 AM LACEMAKER Gender Identity Not on file Sexual Orientation Not on file documented as of this encounter Miscellaneous Notes * Telephone Encounter - Khushi Bermeo R - 07/02/2022 2:15 PM CDT Name of PCP Provider or Prescribing Provider: Chaim Sorto MD Next office visit: Visit date not found Caller: Mary Carmen Contreras Message: patient called to see if Dr. Sorto can fill her two prescriptions that she requested earlier temo,I did inform her of the 48 hr time frame for medication refills and she asked that I send him a messaage anyway to see if he can get it approved right away. Call back Number: [phone] (home) documented in this encounter Plan of Treatment Upcoming Encounters Date Type Department Care Team (Late st Contact Info) Description 06/13/2025 2:20 PM CDT Office Visit [address] [place] [address] Chaim Sorto MD [address] [place] [address] [address] [place] [phone] 11/01/2025 11:00 AM LACEMAKER Office Visit [address] [place] [address] Chaim Sorto MD [address] [place] [address] documented as of this encounter Visit Diagnoses Not on filedocumented in this encounter Additional Health Concerns Infection Onset Date Last Indicated Resolved Time R/O GI Pathogen 10/12/2024 10/12/2024 10/13/2024 1 :30 PM LACEMAKER documented as of this encounter Care Teams Port Surveyor Relationship Specialty Start Date End Date Chaim Sorto MD PCP - General 10/24/09 documented as of this encounter
--- OUTSIDE RECORDS SUMMARY | 2025-02-13 08:39 | XMS_ITS | Encounter Summary ---
Author Organization [facility] Address [address] [place] [address] Care Team Providers Care Primary School Principal Name Role Phone Chaim Sorto MD Primary Care Provider [phone] Encounter Details Date Type Department Care Team (Late st Contact Info) Description 09/15/2024 Specialty [facility] [place] [phone] Victor Hugo Colvin, PHARMACIST Social History Tobacco Use Types Packs/Day Years Used Date Smoking Tobacco: Every Day Cigarettes 0.3 1 Passive Smoke Exposure: Current Smokeless Tobacco: Never Alcohol Use Standard Drinks/Week Comments No 0 (1 standard drink = 0.6 oz pur e alcohol) socially Comments No Sex and Gender Information Value Date Recorded Sex Assigned at Not on file Legal Sex Female 5:49 AM ASSEMBLER ARRANGER Gender Identity Not on file Sexual Orientation Not on file documented as of this encounter Plan of Treatment Upcoming Encounters Date Type Department Care Team (Late st Contact Info) Description 06/13/2025 2:20 [place] [address] Chaim Sorto MD [address] [place], [place] [id number] 11/01/2025 11:00 AM ASSEMBLER [place] [address] Chaim Sorto MD [address] [place] [address] documented as of this encounter Visit Diagnoses Not on filedocumented in this encounter Additional Health Concerns Infection Onset Date Last Indicated Resolved Time R/O GI Pathogen 10/12/2024 10/12/2024 10/13/2024 1 :30 PM ASSEMBLER ARRANGER documented as of this encounter Care Teams Primary School Principal Relationship Specialty Start Date End Date Chaim Sorto MD PCP - General 10/24/09 documented as of this encounter
--- OUTSIDE RECORDS SUMMARY | 2025-02-13 08:39 | XMS_ITS | Encounter Summary ---
Author Organization [facility] Address [address] [place] [address] Care Team Providers Care Periodontal Assistant Name Role Phone Chaim Sorto MD Primary Care Provider [phone] Reason for Visit * Reason Comments Patient Communication Patient Communication Encounter Details Date Type Department Care Team (Late st Contact Info) Description 08/03/2024 Telephone [facility] Primary Care [address] [place] [address] Chaim Sorto MD [address] [facility] [address] [place] [address] Patient Communication; Patient Communication Social History Tobacco Use Types Packs/Day Years Used Date Smoking Tobacco: Every Day Cigarettes 0.3 1 Passive Smoke Exposure: Current Smokeless Tobacco: Never Alcohol Use Standard Drinks/Week Comments No 0 (1 standard drink = 0.6 oz pur e alcohol) socially Comments No Sex and Gender Information Value Date Recorded Sex Assigned at Not on file Legal Sex Female 5:49 AM BEARING GRINDER Gender Identity Not on file Sexual Orientation Not on file documented as of this encounter Miscellaneous Notes * Telephone Encounter - Erendira Taylor LPN - 08/03/2024 3:19 PM CDT Pt has a rash from unknown source. Says each bump is slightly bleeding. Never had a reaction while on current medications. Would like advise from * Telephone Encounter - Inocencia Gutierrez - 08/03/2024 2:42 PM CDT Copied from [facility] #[id number]. Topic: CPA Information Request - Patient Call Back >> Aug 03, 2024 2:41 PM Inocencia Beasley wrote: Caller is returning phone call from clinic. Caller Name: Mary Carmen Contreras Patient/Caregiver Callback Number: Telephone Information: Clinic Left Note In Chart Is there a note from the clinic requesting the caller be transferred when they call back? Yes - note is for PCN Call Notes: Note indicated caller should be transferred to clinic when they called back. * Telephone Encounter - Alisha Goyal - 08/03/2024 12:11 PM CDT Copied from [facility] #[id number]. Topic: Patient or Caregiver Communication Request >> Aug 03, 2024 12:09 PM Alisha Price wrote: Patient or Caregiver requesting advice Caller: Mary Carmen Contreras Patient/Caregiver Callback Number: Telephone Information: Call Notes: Patient called back regarding rash and the most recent patient message communicated from [employer] asking the patient to upload a photo of her rash was relayed. Patient will upload a photo. documented in this encounter Plan of Treatment Upcoming Encounters Date Type Department Care Team (Late st Contact Info) Description 06/13/2025 2:20 PM CDT Office Visit [address] [place] [phone] Chaim Sorto MD [address] [place] [address] [address] [place] [phone] 11/01/2025 11:00 AM BEARING GRINDER Office Visit [address] [place] [phone] Chaim Sorto MD [address] [place] [address] [address] [place] [phone] documented as of this encounter Visit Diagnoses Not on filedocumented in this encounter Additional Health Concerns Infection Onset Date Last Indicated Resolved Time R/O GI Pathogen 10/12/2024 10/12/2024 10/13/2024 1 :30 PM BEARING GRINDER documented as of this encounter Care Teams Periodontal Assistant Relationship Specialty Start Date End Date Chaim Sorto MD PCP - General 10/24/09 documented as of this encounter
--- OUTSIDE RECORDS SUMMARY | 2025-02-13 08:39 | XMS_ITS | Clinical Summary ---
Author Organization [facility] Address [address] [place] [address] Phone Care Team Providers Care Press Room Supervisor Name Role Phone Chaim Sorto MD Primary Care Provider [phone] Allergies Active Allergy Reactions Criticality Noted Date Comments Red Dye #40 (Allura Red) Unknown 12/27/2017 Trazodone Hives 08/31/2016 Medications omeprazole (PRILOSEC) 20 MG CAPSULE DELAYED RELEASE Take 1 Cap by mouth nightly. 30 Cap 0 08/31/2016 Active ALPRAZolam (XANAX) 0.25 MG Tablet Take 0.25 mg by mouth 2 times daily. Active PARoxetine (PAXIL) 30 MG TabletIndication s:Panic Disorder Take 30 mg by mouth daily. Active Hydrocodone-Acet aminophen (VICODIN PO) Take by mouth as needed. Active ondansetron (ZOFRAN) 4 MG Tablet Take 1 Tab by mouth every 8 hours as needed for Nausea - 1st line. 10 Tab 11/29/2020 Active Social History Tobacco Use Types Packs/Day Years Used Date Smoking Tobacco: Every Day Smokeless Tobacco: Never Tobacco Cessation:Ready to Q uit: No; Counseling Given: Yes Alcohol Use Standard Drinks/Week Comments No 0 (1 standard drink = 0.6 oz pur e alcohol) Comments No Sex and Gender Information Value Date Recorded Sex Assigned at Not on file Legal Sex Female 8:10 PM CDT Gender Identity Not on file Sexual Orientation Not on file Last Filed Vital Signs Vital Sign Reading Time Taken Comments Blood Pressure 128/69 11/29/2020 3:30 PM UNIT COORDINATOR Pulse 90 11/29/2020 3:30 PM UNIT COORDINATOR Temperature 36.4 C (97.6 F) 11/29/2020 11:20 AM UNIT COORDINATOR Respiratory Rate 18 11/29/2020 3:30 PM UNIT COORDINATOR Oxygen Saturation 98% 11/29/2020 3:30 PM UNIT COORDINATOR Inhaled Oxygen Concentration - - Weight 56.7 kg (125 lb) 11/29/2020 11:20 AM UNIT COORDINATOR Height 167.6 cm (5' 6 ) 11/29/2020 11:20 AM UNIT COORDINATOR Body Mass Index 20.18 11/29/2020 11:20 AM UNIT COORDINATOR Plan of Treatment Health Maintenance Due Date Last Done Comments Hepatitis C Virus (HCV) Screening 1988 Hepatitis B Immunization (1 of 3 - 19+ 3-dose series) 2007 Influenza Immunization (#1) 2024 09/06/2019 SARS-COV-2 Immunization ( - season) 2024 Respiratory Syncytial Virus (RSV) Immunization (Adult) (1 - 1-dose 75+ series) 2063 TdaP Immunization Completed 08/12/2012 DTaP/Tdap/Td Immunization Discontinued 2020, 08/12/2012 Meningococcal Immunization (ACWY) Aged Out No longer eligible based on patient's age to complete this topic Pneumococcal Immunization Combined Aged Out No longer eligible based on patient's age to complete this topic Rotavirus Immunization Aged Out No lo nger eligible based on patient's age to complete this topic Care Teams Press Room Supervisor Relationship Specialty Start Date End Date Chaim Sorto MD [address] [place] [address] PCP - General 08/31/16
--- OUTSIDE RECORDS SUMMARY | 2025-02-13 08:39 | XMS_ITS | Encounter Summary ---
Author Organization [facility] Address [address] [place] [address] Care Team Providers Care Brass Instrument Repair Technician Name Role Phone Chaim Sorto MD Primary Care Provider Reason for Visit * Reason Comments Needs Orders Written Encounter Details Date Type Department Care Team (Late st Contact Info) Description 12/08/2024 Telephone [facility] Primary Care [address] [place] [address] Chaim Sorto MD [address] [facility] [address] [place] [address] Needs Orders Written Social History Tobacco Use Types Packs/Day Years [...] on file Legal Sex Female 5:49 AM SHIPPING AND RECEIVING ASSOCIATE Gender Identity Not on file Sexual Orientation Not on file documented as of this encounter Miscellaneous Notes * Telephone Encounter - Jacque Hathaway - 12/08/2024 8:59 AM CST Copied from [facility] #[id number]. Topic: CPA Information Request - Order or Referral Request >> Dec 08, 2024 8:55 AM Jaqcue Chahal wrote: Caller Name: Mary Carmen Contreras Patient/Caregiver Callback Number: Telephone Information: Call Notes: requesting to add a US of the left hip Caller is requesting: New Non Lab Order Has the patient been seen for this issue? Yes Order: US of the left hip Reason for Request: believes she has a blood clot in her calf has a US scheduled for today and wants to add the hip as well due to the pain in that area as well Preferred Facility/Location: [place] Please advise appointment is schedule or today at 11 am PING AND RECEIVING ASSOCIATE documented in this encounter Plan of Treatment Upcoming Encounters Date Type Department Care Team (Late st Contact Info) Description 06/13/2025 2:20 PM CDT Office Visit [address] [place] [address] Chaim Sorto MD [address] [place] [address] 11/01/2025 11:00 AM SHIPPING AND RECEIVING ASSOCIATE Office Visit [address] [place] [address] Chaim Sorto MD [address] [place] [phone] documented as of this encounter Visit Diagnoses Not on filedocumented in this encounter Care Teams Brass Instrument Repair Technician Relationship Specialty Start Date End Date Chaim Sorto MD PCP - General 10/24/09 documented as of this encounter
--- OUTSIDE RECORDS SUMMARY | 2025-02-13 08:39 | XMS_ITS | Encounter Summary ---
Author Organization [facility] Address [address] [place] [address] Care Team Providers Care Cafeteria Counter Attendant Name Role Phone Chaim Sorto MD Primary Care Provider [phone] Reason for Visit * Reason Comments Clinical Consult Before Scheduling Encounter Details Date Type Department Care Team (Late st Contact Info) Description 08/05/2024 Telephone [facility] Primary Care [address] [place] [address] Chaim Sorto MD 7 [facility] [address] [place] [address] Clinical Consult Before Scheduling Social [...] on file Legal Sex Female 5:49 AM CHIPPER OPERATOR Gender Identity Not on file Sexual Orientation Not on file documented as of this encounter Miscellaneous Notes * Telephone Encounter - Carlene Taylor - 08/05/2024 12:51 PM CDT Copied from [facility] #[id number]. Topic: Symptomatic Care >> Aug 05, 2024 12:45 PM Carlene Price wrote: Caller has new symptoms and is seeking care. Age Range/Symptom: Adult: 18+ - Bleeding Now - Actively Bleeding Caller Name: Mary Carmen Contreras Callback Number:Patient Contact Information: [phone] Call Notes: Mary Carmen Contreras because she is camping ,still having blood in stool, nausea been to the ER 3 times for diarrhea vomiting documented in this encounter Plan of Treatment Upcoming Encounters Date Type Department Care Team (Late st Contact Info) Description 06/13/2025 2:20 PM CDT Office Visit [address] [place] [address] Chaim Sorto MD [address] [place] [address] [address] [place] [address] 11/01/2025 11:00 AM CHIPPER OPERATOR Office Visit [address] [place] [address] Chaim Sorto MD [address] [place] [address] documented as of this encounter Visit Diagnoses Not on filedocumented in this encounter Additional Health Concerns Infection Onset Date Last Indicated Resolved Time R/O GI Pathogen 10/12/2024 10/12/2024 10/13/2024 1 :30 PM CHIPPER OPERATOR documented as of this encounter Care Teams Cafeteria Counter Attendant Relationship Specialty Start Date End Date Chaim Sorto MD PCP - General 10/24/09 documented as of this encounter
--- OUTSIDE RECORDS SUMMARY | 2025-02-13 08:39 | XMS_ITS | Encounter Summary ---
Author Organization [facility] Address [address] [place] [address] Care Team Providers Care Senior Accounting Analyst Name Role Phone Chaim Sorto MD Primary Care Provider [phone] Reason for Visit * Reason Comments Clinical Consult Before Scheduling Encounter Details Date Type Department Care Team (Late st Contact Info) Description 01/09/2025 Telephone [facility] Primary Care [address] [place] [address] Chaim Sorto MD [address] [facility] [address] [place] [address] Clinical Consult Before Scheduling Social [...] on file Legal Sex Female 5:49 AM ASSISTANT PRESS OPERATOR OFFSET Gender Identity Not on file Sexual Orientation Not on file documented as of this encounter Miscellaneous Notes * Telephone Encounter - Shobha Bustamante LPN - 01/09/2025 2:58 PM CST 01/09/2025 2:58 PM Returned call. No answer. Left voice mail/message to return our call. If patient/caregiver calls back, contact center please inform pt to respond via [facility] to providers response. Shobha DAVID STANT PRESS OPERATOR OFFSET * Telephone Encounter - Shobha Bustamante LPN - 01/09/2025 2:37 PM CST 01/09/2025 2:37 PM Returned call and spoke with patient. Discussed that Nurtec is still not done with PA process pt demanding something be sent in for migraines today and she will not wait any longer. Pt is not taking Nortriptyline at this time. Shobha DAVID STANT PRESS OPERATOR OFFSET * Telephone Encounter - Shobha Bustamante LPN - 01/09/2025 2:36 PM CST Call disconnected upon transfer from call center. STANT PRESS OPERATOR OFFSET * Telephone Encounter - Nadine Dugan - 01/09/2025 2:36 PM CST Copied from [facility] #[id number]. Topic: Symptomatic Care >> Jan 09, 2025 2:33 PM Nadine Kerns wrote: Caller has new symptoms and is seeking care. Age Range/Symptom: Adult: 18+ - Headache or Migraine Is your headache sudden onset and severe? Yes Caller Name: Mary Carmen Contreras Callback Number: [phone] Call Notes: having a migraine on set severe Transferred to [facility] Juan answered call. STANT PRESS OPERATOR OFFSET documented in this encounter Plan of Treatment Upcoming Encounters Date Type Department Care Team (Late st Contact Info) Description 06/13/2025 2:20 PM CDT Office Visit [facility] Primary Care [address] [place] [address] Chaim Sorto MD [address] [place] [address] [address] [place] [phone] 11/01/2025 11:00 AM ASSISTANT PRESS OPERATOR OFFSET Office Visit [facility] [address] [place] [address] [place] [address] Chaim Sorto MD [address] [place] [address] [address] [place] [address] documented as of this encounter Visit Diagnoses Not on filedocumented in this encounter Care Teams Senior Accounting Analyst Relationship Specialty Start Date End Date Chaim Sorto MD PCP - General 10/24/09 documented as of this encounter
--- OUTSIDE RECORDS SUMMARY | 2025-02-13 08:39 | XMS_ITS | Continuity of Care Document ---
Author Organization [facility] Address [address] [place] [address] [address] [place] [address] Phone Care Team Providers Care Senior Genetic Counselor Name Role Phone Michael OD OD, Malia Unavailable Unavai lable Allergies, Adverse Reactions, Alerts Substance Reaction Status Criticality red dye Active No Information Medications Medication Instructions Dosage Effective Dates (start - stop) Status Comments TRAZODONE HCL (unknown strength) take 1 tablet by oral route 3 times every day after meals Not Available - Active Zithromax Z-Armando 250 mg tablet take 2 tablet by oral route every day for 1 day then 1 tablet (250 mg) by oral route once daily for 4 days 500 MG - No Longer Active Procedures Procedure Date No Charge Visit No Charge Visit Advance Directives Directive Yes / No Effective Date File Name No Information Encounters Encounter Description Practice Location Reason(s) For Visit Diagnoses Date Provider Providers Copied on Encounter [facility], [address] [place] [address], [id number], tel:[phone] OPH CONSULT NELDA SANTIAGO No Information 0 Derheimer OD Malia. [address] [facility], [address], [place], [place], [id number], [place]. tel:[phone] Referring Provider: Lala Bueno, [address] [facility] [address], [place], [address]. tel:[phone] [facility], [address] [place] [address], [id number], tel:[phone] OPH CONSULT NELDA SANTIAGO [facility] 4 Nick Reeves. [address], [place], [address], [place]. tel:[phone] Referring Provider: Lala Bueno, [address], [place], [address]. tel:[phone] [facility], [address] [facility] [address], [place], [place], [id number], tel:[phone] OPH CONSULT NELDA SANTIAGO No Information 2 Nick Reeves. [address], [address], [place], [address], [place]. tel:[phone] Referring Provider: Lala Bueno, [address], [place], [address]. tel:[phone] Family History Family Member Type Diagnosis Age At Onset No Information Payers Payer name Insurance type Covered green party ID Authoriza tion(s) No Information Social History Type Description Quantity Date Captured Comments Sex Female Smoking Status No Information Chief Complaint And Reason For Visit No Information Reason For Referral Reason For Referral No Information History Of Present Illness Encounter Date Complaint History Of Prese nt Illness No Information Functional Status Date Functional Assessmen t No Information Instructions Date Instruction Additional Infor mckenzie [facility] OU lat in - patient to wear OTC readers for end of day pain. if no improvement then possibly cl fit. Related to [facility] Assessments Type Assessment Date No Information Patient Care Teams Name Effective Dates (start - stop) Status Members No Information
--- OUTSIDE RECORDS SUMMARY | 2025-02-13 08:39 | XMS_ITS | Clinical Summary ---
Author Organization [facility] Address [address] [place] [address] Care Team Providers Care Media Reconciliation Specialist Name Role Phone Chaim Sorto MD Primary Care Provider [phone] Allergies Active Allergy Reactions Criticality Noted Date Comments Diphenhydramine Hcl Hives High 08/03/2024 Orphenadrine Hives High 10/13/2024 Prochlorperazine Hives High 10/13/2024 Trazodone Other (See Comments),Headache,Hives High 01/19/2014 Medications cyclobenzaprin e (FLEXERIL) 10 mg tablet Take 10 mg by mouth 3 times daily as needed for Spasm. Active dicyclomine (BENTYL) 10 mg capsule Take 1 Capsule (10 mg) by mouth 4 times daily as needed for Nausea or abdominal pain. 24 Capsule 08/01/20 24 Active Additional Information Patient not taking.Reported on 02/06/2025 ALPRAZolam (XANAX) 0.25 mg tabletIndicati ons:Generalize d anxiety disorder Take 1 Tablet (0.25 mg) by mouth 2 times daily as needed for Anxiety. 20 Tablet 2 08/01/20 24 Active Additional Information Patient not taking.Reported on 02/06/2025 melatonin 3 mg Tablet Take 3 mg by mouth nightly as needed for Insomnia. Active nortriptyline (PAMELOR) 10 mg capsule Take 1 Capsule (10 mg) by mouth daily at bedtime. 30 Capsule 10/17/20 24 Active Additional Information Patient not taking.Reported on 02/06/2025 naloxone (NARCAN) 4 mg/spray [place], Non-Aerosol EMERGENCY USE ONLY: Administer 1 spray (4 mg) in one nostril one time. May repeat in alternating nostrils every 2-3 min until responsive or EMS arrives. 2 Each 3 10/17/20 24 Active Additional Information Patient not taking.Reported on 02/06/2025 ondansetron (ZOFRAN) 4 mg TabletIndicati ons:Vertigo Take 1 Tablet (4 mg) by mouth every 6 hours as needed for Nausea/Emesis. 30 Tablet 01/02/20 25 Active meclizine (ANTIVERT) 12.5 mg tabletIndicati ons:Vertigo Take 1 Tablet (12.5 mg) by mouth 3 times daily as needed for Dizziness. 30 Tablet 01/02/20 25 Active Additional Information Patient not taking.Reported on 02/06/2025 hydrOXYzine HCL (ATARAX) 10 mg tabletIndicati ons:Anxiety state Take 1 Tablet (10 mg) by mouth every 8 hours as needed for Itching. 90 Tablet 01/02/20 Active Additional Information Patient not taking.Reported on 02/06/2025 ondansetron (ZOFRAN ODT) 8 mg Tablet, Rapid Dissolve Dissolve 1 tablet on top of tongue then swallow with saliva every 8 hours as needed for nausea or vomiting 30 Tablet 3 02/07/20 25 Active rimegepant (Nurtec ODT) 75 mg Tablet, Rapid DissolveIndica tions:Migraine without status migrainosus, not intractable, unspecified migraine type As needed every other day. 30 Tablet 02/07/20 25 Active ALPRAZolam (XANAX) 0.25 mg tabletIndicati ons:Other insomnia Take 1 Tablet (0.25 mg) by mouth daily at bedtime. 40 Tablet 2 02/07/20 25 Active methylPREDNISo lone (MEDROL DOSPACK) 4 mg Tablets, Dose PackIndication s:COVID-19 virus detected,Acute cough Day 1 take 6 tabs Day 2 take 5 tabs Day 3 take 4 tabs Day 4 take 3 tabs Day 5 take 2 tabs Day 6 take 1 tabs 21 Tablet 12/06/19 25 025 Discontinued rimegepant (Nurtec ODT) 75 mg Tablet, Rapid DissolveIndica tions:Migraine without status migrainosus, not intractable, unspecified migraine type As needed every other day. 30 Tablet 01/02/20 25 025 Discontinued(R eorder) metoprolol tartrate (LOPRESSOR) 25 mg tabletIndicati ons:Migraine without status migrainosus, not intractable, unspecified migraine type Take 1 Tablet (25 mg) by mouth 2 times daily. 60 Tablet 01/09/20 25 025 Discontinued Active Problems Patient Care Coordination No te Formatting of this note migh t be different from the original. Prev 02/06/25 Problem Noted Date Diagnosed Date Total Hysterectomy 12/06/2024 Colon, diverticulosis 10/13/2024 Episode of recurrent major depressive disorder 1 12/13/2023 Sinus tachycardia 10/13/2024 Chronic low back pain 10/13/2024 Colitis 10/07/2024 Daily headache 11/30/2023 Major depressive disorder 03/24/2023 Cholelithiasis 02/03/2023 Superficial venous thrombosis of left upper extr emity 02/03/2023 Migraine 02/27/2021 Anxiety 03/07/2019 Nausea and vomiting 08/12/2016 Vitamin D deficiency 12/29/2013 IBS (irritable bowel syndrome) 08/12/2010 Generalized abdominal pain 11/17/2009 Hypokalemia 11/17/2009 Adjustment reaction 10/29/2009 Insomnia 10/29/2009 Hypoglycemia Enteritis Epigastric abdominal pain Resolved Problems Problem Noted Date Diagnosed Date Resolved Date Hypotension 03/18/2022 04/04/2022 RUQ abdominal pain 03/11/2022 Gastroenteritis 11/30/2019 02/27/2021 Severe protein-calorie malnutrition 11/30/2019 02/05/2022 Right upper quadrant abdominal pain 08/12/2016 02/27/2021 Tobacco use 04/15/2016 02/27/2021 Hematochezia 11/17/2009 11/19/2009 Diarrhea 10/29/2009 08/12/2010 Overview (11/19/2009): 11/19/09 EGD and C-scope unremarkable. Bx currently pending to eval for celiac sprue. Weight loss 10/29/2009 08/12/2010 Vomiting 07/17/2020 Encounters Date Type Department Care Team Description 02/06/2025 10:40 AM CDT Office Visit [facility] [address] [place] [address] Chaim Sorto MD Colitis (Primary Dx); Migraine without status migrainosus, not intractable, unspecified migraine type; Other insomnia; Encounter for routine adult health examination with abnormal findings 01/31/2025 External Device Data [facility] ABSTRACTION Provider, Abstract 01/31/2025 External Device Data [facility] ABSTRACTION Provider, Abstract 01/25/2025 External Device Data [facility] ABSTRACTION Provider, Abstract 01/24/2025 External Device Data [facility] ABSTRACTION Provider, Abstract 01/18/2025 Abstract [facility] [address] [place] [address] Chaim Sorto MD 01/13/[address] [place] [address] Chaim Sorto MD Referral 01/10/2025 Patient Outreach [address] [place] [address] Noel Cantu. [facility] 01/10/2025 Orders Only [address] [place] [address] Maria Isabel Lan PA Anxiety state (Primary Dx) 01/10/[address] [place] [address] Chaim Sorto MD Question 01/09/2025 Orders Only [address] [place] [address] Maria Isabel Lan PA Migraine without status migrainosus, not intractable, unspecified migraine type (Primary Dx) 01/09/2025 Telephone [place] [address] [place] [address] Chaim Sorto MD Clinical Consult Before Scheduling 01/09/2025 [place] [address] [place] [address] Chaim Sorto MD Medication Assistance; Medication Assistance 01/02/2025 1:00 PM AFFILIATE MARKETING MANAGER Video Visit [address] [address] Maria Isabel Lan PA Migraine without status migrainosus, not intractable, unspecified migraine type (Primary Dx); Anxiety state; Vertigo; Encounter for screening for cervical cancer 12/29/[address] [address] Chaim Sorto MD Clinical Consult Before Scheduling 12/29/[address] [address] Chaim Sorto MD 12/27/[address] [address] Chaim Sorto MD Clinical Consult Before Scheduling 12/20/2024 External Device Data [facility] ABSTRACTION Provider, Abstract 12/15/2024 External Device Data [facility] ABSTRACTION Provider, Abstract 12/09/[address] [address] Chaim Sorto MD Clinical Consult Before Scheduling; Paperwork 12/08/2024 10:53 AM AFFILIATE MARKETING MANAGER - 12/08/2024 11:59 PM AFFILIATE MARKETING MANAGER Hospital Encounter [facility] Blood Flow [address] [place] [address] Maria Isabel Lan PA Discharge Disposition: Home or Self Care 12/08/2024 Results Follow-Up [address] [address] Maria Isabel Lan PA US VENOUS DOPPLER LEG LEFT 12/08/[address] [address] Chaim Sorto MD Needs Orders Written 12/06/2024 3:30 PM AFFILIATE MARKETING MANAGER Video Visit [address] [place] [address] Maria Isabel Lan PA Screening for cervical cancer (Primary Dx); COVID-19 virus detected; Acute cough; Vertigo; Swelling of calf 12/06/2024 External Device Data [facility] ABSTRACTION Provider, Abstract 12/06/2024 External Device Data [facility] ABSTRACTION Provider, Abstract 12/05/[address] [place] [address] Chaim Sorto MD Advice Only 11/30/[address] [place] [address] Chaim Sorto MD Medication Assistance 11/24/[address] [place] [address] Chaim Sorto MD Hospital Follow Up 11/15/2024 External Device Data [facility] ABSTRACTION Provider, Abstract from Last 3 Months Immunizations Immunization Administration Dates Next Due (ADACEL/BOOSTRIX)(10 YR UP) TDAP VACCINE, 0.5ML, IM 10/08/2021,08/12/2012 (TDVAX)(7 YRS UP) TETANUS AN D DIPHTHERIA TOXOIDS, ADSORBED (2 LF OF TETANUS TOXOID AND 2 LF OF DIPHTHERIA TOXOID), 0.5ML (PF), IM 10/08/2021 Influenza Seasonal Unspecified Formulation IM Family History Medical History Relation Name Comments Heart Disease Father Hemochromatosis Father Thyroid Cancer Mother Thyroid Disease Mother Other Other Crohn's Crohn's Disease Paternal Grandmother Colon Cancer Neg Hx Relation Name Status Comments Brother Alive Father Alive Mother Alive Other Alive Paternal Grandmother Alive Sister Alive Social History Tobacco Use Types Packs/Day Years Used Date Smoking Tobacco: Former Cigarettes 0.3 14 S tarted: 2008 Passive Smoke Exposure: Past Smokeless Tobacco: Never Tobacco Cessation:Counseling Given: No Alcohol Use Standard Drinks/Week Comments No 0 [...] on file Legal Sex Female 5:49 AM 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 MARKETING MANAGER Gender Identity Not on file Sexual Orientation Not on file Last Filed Vital Signs Vital Sign Reading Time Taken Comments Blood Pressure 110/68 02/06/2025 10:12 AM CDT Pulse 81 02/06/2025 10:12 AM CDT Temperature 36.2 C (97.2 F) 10/17/2024 4:47 AM AFFILIATE MARKETING MANAGER Respiratory Rate 20 10/17/2024 4:47 AM AFFILIATE MARKETING MANAGER Oxygen Saturation 99% 02/06/2025 10: 12 AM CDT Inhaled Oxygen Concentration - - Weight 57.5 kg (126 lb 12.8 oz) 025 10:12 AM CDT Height 167.6 cm (5' 6 ) 02/06/2025 10:1 2 AM CDT Body Mass Index 20.47 02/06/2025 10:12 AM CDT Plan of Treatment Upcoming Encounters Date Type Department Care Team (Late st Contact Info) Description 06/13/2025 2:20 PM CDT Office Visit [address] [place] [address] Chaim Sorto MD [address] [place] [address] [address] [place] [address] 11/01/2025 11:00 AM AFFILIATE MARKETING MANAGER Office Visit [address] [place] [address] Chaim Sorto MD [address] [place] [address] [address] [place] [address] Health Maintenance Due Date Last Done Comments HEPATITIS B VACCINES (1 of 3 - 19+ 3-dose series) 2007 DTAP/TDAP/TD VACCINES (4 - Td or Tdap) 10/08/2031 10/08/2021, 10/08/2021, 08/12/2012 INFLUENZA VACCINE Completed 10/12/2024, 09/06/2019 HPV VACCINES Aged Out No longer eligi ble based on patient's age to complete this topic Procedures Procedure Name Priority Date/Time Associated Diagnosis Comments US VENOUS DOPPLER LEG LEFT Stat 12/08/2024 11:41 AM AFFILIATE MARKETING MANAGER Swelling of calf from Last 3 Months Results * US VENOUS DOPPLER LEG LEFT (12/08/2024 11:41 AM AFFILIATE MARKETING MANAGER) Anatomical Region Laterality Modality Lower Extremity Ultrasound 12/08/2024 12:0 2 PM AFFILIATE MARKETING MANAGER Narrative 12/08/2024 12:33 PM AFFILIATE MARKETING MANAGER [address] [address] [email or web address] Venous Exam Limited Lower Extremity Duplex Patient: Mary Carmen Contreras Study ID: [id number] Gender: F : 1990 Age: 34 Race: CAU Height Study Date: 12/08/2024 Weight: Access. #: [id number] *Referring Physician:* Maria Isabel Lan Raegan *Ordering Physician:* Maria Isabel Lan *Facilities Coordinator:* Kezia Sultana History: Swelling of the left lower extremity. PMH: No prior study is available for comparison. Study data: [facility] Study status: STAT. Procedure: A vascular evaluation was performed. Image quality was good. Left lower extremity venous duplex evaluation. Doppler flow study including spectral analysis, color and lama scale imaging. Birthdate: Patient birthdate: 1990. Age: Patient is 34year(s) old. Sex: gender: female. Study date: Study date: 12/08/2024. Study time: 12:02 PM. Location: Vascular laboratory. Patient status: Outpatient. Impressions Study data: No prior study is available for comparison. No evidence of deep vein thrombosis involving the left lower extremity. Tables: Venous flow: + +-------+ + !Location !Overall!Flow properties ! + +-------+ + !Left common femoral - !Patent !Phasic; spontaneous; normal augmentation; ! ! ! !compressible; no reflux ! + +-------+ + !Left femoral - !Patent !Compressible ! + +-------+ + !Left profunda femoral -!Patent !Compressible ! + +-------+ + !Left popliteal - !Patent !Phasic; spontaneous; normal augmentation; ! ! ! !compressible; no reflux ! + +-------+ + !Left posterior tibial -!Patent !Compressible ! + +-------+ + !Left peroneal - !Patent !Compressible ! + +-------+ + !Right common femoral - !Patent !Phasic; spontaneous; normal augmentation; ! ! ! !compressible; no reflux ! + +-------+ + *Velocities are expressed in cm/s, Diameters are expressed in mm Prepared and Electronically Authenticated Júnior Soto [id number] Procedure Note Júnior Soto MD - 12/08/2024 [place] [address] [address] [facility] [place] [address] [email or web address] Venous Exam Limited Lower Extremity Duplex Patient: Mary Carmen Contreras Study ID: [id number] Gender: F : 1990 Age: 34 Race: CAU Height Study Date: 12/08/2024 Weight: Access. #: [id number] *Referring Physician:* Maria Isabel Lan Raegan *Ordering Physician:* Maria Isabel Lan *Facilities Coordinator:Kezia Mcdaniels History: Swelling of the left lower extremity. PMH: No prior studyis available for comparison. Study data: New node Study status: STAT. Procedure: A vascularevaluation was performed. Image quality was good. Left lower extremity venousduplex evaluation. Doppler flow study including spectral analysis, color andgray scale imaging. Birthdate: Patient birthdate: 1990. Age: Patientis 34year(s) old. Sex: gender: female. Study date: Study date: 12/08/2024. Study time: 12:02 PM. Location: Vascular laboratory.Patient status: Outpatient. Impressions Study data: No prior study is available for comparison. No evidence ofdeep vein thrombosis involving the left lower extremity. Tables: Venous flow: + +-------+ + !Location !Overall!Flow properties! + +-------+ + !Left common femoral - !Patent !Phasic; spontaneous; normal augmentation;! ! ! !compressible; no reflux! + +-------+ + !Left femoral - !Patent !Compressible! + +-------+ + !Left profunda femoral -!Patent !Compressible! + +-------+ + !Left popliteal - !Patent !Phasic; spontaneous; normal augmentation;! ! ! !compressible; no reflux! + +-------+ + !Left posterior tibial -!Patent !Compressible! + +-------+ + !Left peroneal - !Patent !Compressible! + +-------+ + !Right common femoral - !Patent !Phasic; spontaneous; normal augmentation;! ! ! !compressible; no reflux! + +-------+ + *Velocities are expressed in cm/s, Diameters are expressed in mm Prepared and Electronically Authenticated Júnior Soto [id number] Maria Isabel MURPHY ORDERABLES Final Re sult from Last 3 Months Insurance RX [place] Commercial RX EXPRESS [employer] Express RX NAGY PLANS (INTERNAL) [facility] Internal Plans RX [facility] Commercial RX [facility] Commercial Advance Directives For more information, please contact: [phone] * Full Code (Latest Code Status on File) Date Activated Date Inactivated Comments 10/13/2024 5:17 AM 10/17/2024 1:39 PM * Full Code Date Activated Date Inactivated Comments 03/18/2022 8:06 AM 03/20/2022 6:23 PM * Full Code Date Activated Date Inactivated Comments 03/18/2022 8:05 AM 03/18/2022 8:05 AM * Full Code Date Activated Date Inactivated Comments 03/11/2022 4:44 PM 03/14/2022 6:04 PM * Full Code Date Activated Date Inactivated Comments 12/10/2019 9:32 AM 12/11/2019 4:13 PM Care Teams Media Reconciliation Specialist Relationship Specialty Start Date End Date Chaim Sorto MD PCP - General 10/24/09
--- OUTSIDE RECORDS SUMMARY | 2025-02-13 08:39 | XMS_ITS | Encounter Summary ---
Author Organization [facility] Address 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 Gender Identity Not on file Sexual Orientation Not on file documented as of this encounter Plan of Treatment Upcoming Encounters Date Type Department Care Team (Late st Contact Info) Description 06/13/2025 2:20 PM CDT Office Visit [facility] [address] [facility] [address] [place] [address] Chaim Sorto MD [address] [place] [address] [place] [address] 11/01/2025 11:00 AM OCCUPATIONAL HEALTH AND SAFETY OFFICER Office Visit [facility] [address] [place] [address] [address] [place] [address] Chaim Sorto MD [address] [place] [address] [place] [address] documented as of this encounter Visit Diagnoses Not on filedocumented in this encounter Care Teams Opener Tender Relationship Specialty Start Date End Date Chaim Sorto MD PCP - General 10/24/09 documented as of this encounter
--- OUTSIDE RECORDS SUMMARY | 2025-02-13 08:39 | XMS_ITS | Clinical Summary ---
Author Organization [facility] [employer] Address [address] [place] [address] Care Team Providers Care Diesel Motor Mechanic Name Role Phone Tip Srivastava MD Unavailable [phone] Onofre Garcia DO Unavailable [phone] Onofre Garcia DO Unavailable [phone] Chaim Sorto MD Primary Care Provider [phone] Source Comments [facility],non-owned Affiliates and Associated Physician Practices is amultiple site organization consisting of ambulatory clinics and hospital sitesin [place], [place], [place] and [place]. This disclosure is being madepursuant to the Care Everywhere program and may not contain all information available regarding this patient. Last updated 18.[facility] Allergies Active Allergy Reactions Criticality Noted Date Comments Diphenhydramine Unknown 01/31/2023 Prochlorperazine Urticaria Medium 11/01/2022 Orphenadrine Urticaria Medium 07/08/2023 Skin Adhesives Itching 02/01/2025 Trazodone Urticaria Medium 11/01/2022 Medications * Be aware that medications may not be up to date on this document. Alwaysverify current medications with the patient. Medication Sig Dispensed Refills Start Date End Date Status dilTIAZem coated beads 24hr (Cardizem CD) 120 MG capsule Take 1 (one) capsule by mouth once daily Do not crush or chew. 30 capsule 5 03/01/2024 Active Additional Information Patient not taking.Reason: Patient adjusted, Reported on 02/01/2025 Aimovig 140 MG/ML auto injector pen INJECT 1 ML SUBCUTANEOUSLY ONCE EVERY MONTH 1 mL 06/15/2024 Active Additional Information Patient not taking.Reason: Patient adjusted, Reported on 02/01/2025 fluticasone propionate (Flonase) 50 MCG/ACT nasal spray [place] 2 (two) sprays into each nostril once daily for 14 days 16 g 11/04/2024 Active rizatriptan, disintegrating, (Maxalt UNDERWRITER SOLICITATION DIRECTOR) 5 MG tablet Take 1 (one) tablet by mouth daily as needed - may repeat one time for Migraine No more than 30 mg in a 24 hour period. Active emtricitabine-te nofovir DF (Truvada) 200-300 MG tablet Take 1 (one) tablet by mouth every evening 01/11/2025 Active Isentress 400 MG tablet Take 1 (one) tablet by mouth 2 times daily 01/11/2025 Active metoprolol tartrate IR (Lopressor) 25 MG tablet Take 1 (one) tablet by mouth 2 times daily As needed per patient for migraines 01/09/2025 Active hydrOXYzine HCl (Atarax) 10 MG tablet Take 1 (one) tablet by mouth every 8 hours as needed 01/02/2025 Active meclizine (Antivert) 12.5 MG tablet Take 1 (one) tablet by mouth every 8 hours as needed 01/02/2025 Active Nurtec 75 MG tablet Take 75 mg by mouth as needed (every other day) 01/02/2025 Active ondansetron, disintegrating, (Zofran ODT) 4 MG tablet Take 1 (one) tablet by mouth every 6 hours as needed for Nausea/Vomiting Allow tablet to dissolve on the tongue 20 tablet 01/14/2025 Active ciprofloxacin (Cipro) 500 MG tablet Take 1 (one) tablet by mouth 2 times daily for 5 days 10 tablet 02/02/2025 5 metroNIDAZOLE (Flagyl) 500 MG tablet Take 1 (one) tablet by mouth 3 times daily for 5 days 14 tablet 02/02/2025 5 Active Problems Problem Noted Date Diagnosed Date Diverticulitis of colon 01/31/2025 Colitis 10/07/2024 Intractable migraine without status migrainosus, unspecified migraine type 12/03/2023 Daily headache 11/30/2023 Major depressive disorder, single episode, moder ate 03/24/2023 Vitamin deficiency 03/24/2023 Superficial venous thrombosis of left upper extr emity 02/03/2023 Anxiety 01/01/2023 Nausea and vomiting, unspecified vomiting type 0 12/21/2022 Abdominal pain, generalized 10/31/2022 Cyclical vomiting syndrome 10/31/2022 Nausea without vomiting 10/31/2022 Migraine 02/27/2021 IBS (irritable bowel syndrome) 08/12/2010 Insomnia 10/29/2009 Adjustment reaction 10/29/2009 Resolved Problems Problem Noted Date Diagnosed Date Resolved Date Nausea vomiting and diarrhea 10/07/2024 11/04/2024 Constipation 03/24/2023 04/21/2023 Dehydration 03/18/2023 04/01/2023 Calculus of gallbladder with acute on chronic cholecystitis without obstruction 02/03/20232022 Colitis 01/19/2023 03/24/2023 Enteritis 01/01/2023 03/24/2023 Encounters Date Type Department Care Team Description 01/31/2025 5:50 PM CDT - 02/02/2025 4:26 PM CDT Hospital Encounter [facility] [address] [place] [address] Elizabeth Bañuelos, DEBT MANAGEMENT COUNSELOR-Ricki Zepeda, DO Darling, Michael Cardoza, Hospitalist Discharge Disposition: Home or Self Care 01/31/2025 5:00 PM CDT Office Visit [facility] [address] [phone] Provider1, [facility] Left lower quadrant abdominal pain (Primary Dx) 01/31/2025 Travel 01/18/2025 7:34 AM [facility] - 01/18/2025 9:47 AM [facility] Emergency ER at [address] [address] Desiree Grey MD RUQ pain; Coffee ground emesis; Nausea and vomiting, unspecified vomiting type Discharge Disposition: Home or Self Care 01/18/2025 Travel 01/13/2025 7:20 AM [facility] - 01/14/2025 12:54 PM [facility] Hospital Encounter [facility] [address] [place] [address] [place] Cui MD Foshee, Luke, DO Hospitalist Discharge Disposition: Home or Self Care 01/13/2025 Travel 11/29/2024 5:15 PM [facility] Office Visit [facility] [address] [place] [phone] Encounter for removal of sutures (Primary Dx); COVID 11/29/2024 Travel 11/23/2024 Travel from Last 3 Months Immunizations Name Administration Dates Next Due INFLUENZA VACCINE, TRIV. (AF LURIA, FLUZONE TRIVALENT; 6MO+) (IIV3) 09/06/2019 TDAP (7yrs+) 08/12/2012 TDAP, HISTORIC VACCINE 10/08/2021 Td (Adult), 2 Lf Tetanus Toxoid, Adsorbed, Pf Family History Medical History Relation Name Comments Hypertension Father Thyroid Disease Mother Relation Name Status Comments Father Mother Social History Tobacco Use Types Packs/Day Years Used Date Smoking Tobacco: Former Cigarettes Q uit: 11/23/2022 Smokeless Tobacco: Never Tobacco Cessation:Counseling Given: Not Answered Passive Exposure Comments:states it takes 1 week to finish half pack-1 pack Alcohol Use Standard Drinks/Week Comments Yes 0 (1 standard drink = 0.6 oz pur e alcohol) rarely like twice a year AUDIT-C Answer Date Recorded Q1: How often do you have a drink containing alcohol? Never 02/01/2025 Q2: How many drinks containi ng alcohol do you have on a typical day when you are drinking? Patient does not drink Q3: How often do you have si x or more drinks on one occasion? Never 02/01/2025 Overall Financial Resource Strain (CARDIA) Answe r Date Recorded How hard is it for you to pa y for the very basics like food, housing, medical care, and heating? Not hard at all 02/01/2025 PHQ-2 Answer Date Recorded Patient Health Questionnaire-2 Score 0 01/31/2025 [facility] of Occupat ional Health - Occupational Stress Questionnaire Answer Date Recorded Do you feel stress - tense, restless, nervous, or anxious, or unable to sleep at night because your mind is troubled all the time - these days? Only a little 02/01/2025 Hunger Vital Sign Answer Date Recorded Within the past 12 months, y ou worried that your food would run out before you got the money to buy more. Never true 02/02/20 25 Within the past 12 months, t he food you bought just didn't last and you didn't have money to get more. Never true 02/01/2025 PRAPARE - Transportation Answer Date Re corded In the past 12 months, has l ack of transportation kept you from medical appointments or from getting medications? No 01/21 In the past 12 months, has l ack of transportation kept you from meetings, work, or from getting things needed for daily living? No 02/01/2025 Housing Stability Vital Sign Answer Boom e Recorded In the last 12 months, was t here a time when you were not able to pay the mortgage or rent on time? No 12/03/2023 In the last 12 months, how many places have you lived? 1 12/03/2023 In the last 12 months, was t here a time when you did not have a steady place to sleep or slept in a fpc (including now)? No 12/03/2023 Housing Stability Vital Sign Answer Boom e Recorded In the last 12 months, was t here a time when you were not able to pay the mortgage or rent on time? No 02/01/2025 In the past 12 months, how m any times have you moved where you were living? 1 02/01/2025 At any time in the past 12 m [facility], were you homeless or living in a fpc (including now)? No 02/01/2025 Sex and Gender Information Value Date Recorded Sex Assigned at Not on file Gender Identity Not on file Sexual Orientation Not on file Last Filed Vital Signs Vital Sign Reading Time Taken Comments Blood Pressure 98/68 02/02/2025 3:48 PM CDT Pulse 104 02/02/2025 3:48 PM CDT Temperature 36.5 C (97.7 F) 02/02/2025 3:48 PM CDT Respiratory Rate 18 02/02/2025 3:48 PM CDT Oxygen Saturation 100% 02/02/2025 3:48 PM CDT Inhaled Oxygen Concentration - - Weight 58.5 kg (128 lb 15.5 oz) 025 12:55 AM CDT Height 170.2 cm (5' 7.01 ) 02/01/2025 1 2:45 AM CDT Body Mass Index 20.19 02/01/2025 12:45 AM CDT Plan of Treatment Health Maintenance Due Date Last Done Comments PAP SMEAR 1988 HIV SCREENING 2003 HEPATITIS C SCREENING 04/03/2006 HEPATITIS B VACCINE (1 of 3 - 19+ 3-dose series) 2007 COVID-19 VACCINE ( - 2023- season) 2024 INFLUENZA VACCINE (#1) 2024 09/06/2019 DTAP/TDAP/TD VACCINES (4 - Td or Tdap) 10/08/2031 10/08/2021, 10/08/2021, 08/12/2012 ZOSTER VACCINE (1 of 2) 2038 DEPRESSION SCREENING Completed 01/31/2025, 11/30/2023, 09/02/2023, Additional history exists HIB VACCINE Aged Out No longer eligi ble based on patient's age to complete this topic HPV VACCINE Aged Out No longer eligi ble based on patient's age to complete this topic MENINGOCOCCAL (Group B) VACCINE SHARED DECISION-MAKING Aged Out No longer eligible based on patient's age to complete this topic MENINGOCOCCAL GROUPS A/C/Y/W VACCINE Aged Out No longer eligible based on patient's age to complete this topic PNEUMOCOCCAL VACCINE Aged Out No long er eligible based on patient's age to complete this topic Procedures Procedure Name Priority Date/Time Associated Diagnosis Comments CARDIAC RHYTHM STRIP ORDER 02/03/2025 1:33 PM CDT C-REACTIVE PROTEIN Routine 02/02/2025 3: 56 AM CDT BASIC METABOLIC PANEL (CALCIUM TOTAL) AM Draw 02/02/2025 3:56 AM CDT CBC W AUTO DIFFERENTIAL AM Draw 02/02/2025 3:55 AM CDT COMPREHENSIVE METABOLIC PANEL STAT 02/01/2025 4:00 AM CDT CBC W AUTO DIFFERENTIAL STAT 02/01/2025 3:[address] ABDOMEN PELVIS W CONTRAST STAT 01/31/2025 7:34 PM CDT LLQ pain HCG URINE QUALITATIVE - POCT (IP) BEAKER - ILL STAT 01/31/2025 6:11 PM CDT LIPASE BLOOD STAT 01/31/2025 6:11 PM CDT COMPREHENSIVE METABOLIC PANEL STAT 01/31/2025 6:11 PM CDT CBC W AUTO DIFFERENTIAL STAT 01/31/2025 6:11 PM CDT URINE MICROSCOPIC ONLY STAT 6:01 PM CDT URINALYSIS REFLEX TO MICROSCOPIC NO CULTURE STAT 01/31/2025 6:01 PM CDT BLOOD TYPE VERIFICATION STAT 01/18/2025 8:[address] ANGIO ABDOMEN PELVIS STAT 01/18/2025 8:17 AM [facility] RUQ pain Coffee ground emesis Nausea and vomiting, unspecified vomiting type TYPE + SCREEN PANEL STAT 01/18/2025 7 :46 AM [facility] PT-INR STAT 01/18/2025 7:46 AM [facility] LIPASE BLOOD STAT 01/18/2025 7:46 AM [facility] MAGNESIUM BLOOD STAT 01/18/2025 7:46 AM [facility] CBC W AUTO DIFFERENTIAL STAT 01/18/2025 7:46 AM [facility] COMPREHENSIVE METABOLIC PANEL STAT 01/18/2025 7:46 AM [facility] COMPREHENSIVE METABOLIC PANEL AM Draw 01/14/2025 4:40 AM [facility] CBC W/O DIFFERENTIAL AM Draw 01/14/2025 4:[address] ABDOMEN PELVIS W CONTRAST STAT 01/13/2025 8:22 AM [facility] Abdominal pain, generalized LIPASE BLOOD STAT 01/13/2025 7:51 AM [facility] COMPREHENSIVE METABOLIC PANEL STAT 01/13/2025 7:51 AM [facility] CBC W AUTO DIFFERENTIAL STAT 01/13/2025 7:51 AM [facility] HCG BLOOD QUALITATIVE STAT 01/13/2025 7:51 AM [facility] SARS-COV-2 (COVID-19) FLU A/B RSV PCR RAPID STAT 01/13/2025 7:51 AM [facility] SARS-COV-2 (COVID-19) AG (AMB) POCT Routine 11/29/2024 3:05 PM [facility] COVID STREP A SCREEN - POINT OF CARE (AMB) [facility] Routine 11/29/2024 3:01 PM [facility] COVID from Last 3 Months Results * CARDIAC RHYTHM STRIP ORDER (02/03/2025 1:33 PM CDT) Narrative 02/03/2025 1:33 PM CDT Ordered by an unspecified provider. Scanned Document CARDIAC SERVICES ORD ERABLES * C-REACTIVE PROTEIN (02/02/2025 3:56 AM CDT) C-Reactive Protein <0.10 <=0.50 mg/dL 02/02/2025 3:46 PM CDT [facility] Blood BLOOD SPECIMEN / Unknown Lab Venipuncture / Unknown 02/02/2025 3:56 AM CDT 02/02/2025 2:50 PM CDT Michael Darling DO LAB - CHEMISTRY OR DERABLES [facility] [address] * (ABNORMAL) BASIC METABOLIC PANEL (CALCIUM TOTAL) (02/02/2025 3:56 AM CDT) Pathologist [facility] Glucose 95 70 - 125 mg/dL 02/02/2025 5:43 AM CDT [facility] Sodium 139 136 - 145 mmol/L 02/02/2025 5:43 AM CDT [facility] Potassium 3.4 3.4 - 5.1 mmol/L 02/02/2025 5:43 AM CDT [facility] Chloride 106 98 - 107 mmol/L 02/02/2025 5:43 AM CDT [facility] CO2 27 22 - 29 mmol/L 02/02/2025 5:43 AM CDT [facility] Calcium 8.48 8.4 - 10.2 mg/dL 02/02/2025 5:43 AM CDT [facility] Anion Gap 6 6 - 16 mmol/L 02/02/2025 5:43 AM CDT [facility] BUN 7.7(L) 9.8 - 20.1 mg/dL 02/02/2025 5:43 AM CDT [facility] Creatinine 0.73 0.57 - 1.11 mg/dL 02/02/2025 5:43 AM CDT [facility] eGFR >90 >90 mL/min/1.7 3m2 02/02/2025 5:43 AM CDT [facility] Comment:The GFR result was c alculated using the updated CKD-EPI Creatinine Equation (2020). Blood BLOOD SPECIMEN / Unknown Lab Venipuncture / Unknown 02/02/2025 3:56 AM CDT 02/02/2025 5:13 AM CDT Michael Darling DO LAB - CHEMISTRY OR DERABLES Performing Organization Address [facility]/ZIP Co de Phone Number [facility] [address] * (ABNORMAL) CBC W AUTO DIFFERENTIAL (02/02/2025 3:55 AM CDT) Only the most recent of5 resultswithin the time period is included. [facility] WBC 4.1 4.0 - 10.7 x10E9/L 02/02/2025 5:18 AM CDT [facility] RBC Count 3.84(L) 3.90 - 5.20 x10E12/L 02/02/2025 5:18 AM CDT [facility] Hemoglobin 11.8(L) 11.9 - 15.8 g/dL 02/02/2025 5:18 AM CDT [facility] Hematocrit 34.9 34.8 - 46.1 % 02/02/2025 5:18 AM CDT [facility] MCV 90.9 80.0 - 98.0 fL 02/02/2025 5:18 AM CDT [facility] MCH 30.7 26.7 - 33.6 pg 02/02/2025 5:18 AM CDT [facility] MCHC 33.8 31.7 - 36.3 g/dL 02/02/2025 5:18 AM CDT [facility] RDW-CV 13.0 11.3 - 14.8 % 02/02/2025 5:18 AM CDT [facility] Platelet Count 262 150 - 420 x10E9/L 02/02/2025 5:18 AM CDT [facility] MPV 9.7 7.8 - 11.4 fL 02/02/2025 5:18 AM CDT [facility] Neutrophil % 55.3 41.0 - 74.0 % 02/02/2025 5:18 AM CDT [facility] Lymphocyte % 28.3 17.0 - 47.0 % 02/02/2025 5:18 AM CDT [facility] Monocyte % 13.7(H) 3.0 - 11.0 % 02/02/2025 5:18 AM CDT [facility] Eosinophil % 2.0 0.0 - 7.0 % 02/02/2025 5:18 AM CDT [facility] Basophil % 0.7 0.0 - 1.6 % 02/02/2025 5:18 AM CDT [facility] Immature Granulocytes % 0.0 0.0 - 1.0 % 02/02/2025 5:18 AM CDT [facility] Neutrophil Absolute 2.27 1.60 - 7.50 x10E9/L 02/02/2025 5:18 AM CDT [facility] Lymphocyte Absolute 1.16 1.00 - 4.40 x10E9/L 02/02/2025 5:18 AM CDT [facility] Monocyte Absolute 0.56 0.15 - 1.00 x10E9/L 02/02/2025 5:18 AM CDT [facility] Eosinophil Absolute 0.08 0.00 - 0.60 x10E9/L 02/02/2025 5:18 AM CDT [facility] Basophil Absolute 0.03 0.00 - 0.13 x10E9/L 02/02/2025 5:18 AM CDT [facility] Blood BLOOD SPECIMEN / Unknown Lab Venipuncture / Unknown 02/02/2025 3:55 AM CDT 02/02/2025 5:13 AM CDT Michael Sony Darling DO LAB - HEMATOLOGY O RDERABLES Performing Organization Address City/State/[place] Co de Phone Number [facility] [address] * (ABNORMAL) COMPREHENSIVE METABOLIC PANEL (02/01/2025 4:00 AM CDT) Only the most recent of5 resultswithin the time period is included. [facility] Glucose 86 70 - 125 mg/dL 02/01/2025 4:59 AM CDT [facility] Sodium 138 136 - 145 mmol/L 02/01/2025 4:59 AM CDT [facility] Potassium 3.6 3.4 - 5.1 mmol/L 02/01/2025 4:59 AM CDT [facility] Chloride 106 98 - 107 mmol/L 02/01/2025 4:59 AM CDT [facility] CO2 24 22 - 29 mmol/L 02/01/2025 4:59 AM CDT [facility] Calcium 8.88 8.4 - 10.2 mg/dL 02/01/2025 4:59 AM CDT [facility] Anion Gap 8 6 - 16 mmol/L 02/01/2025 4:59 AM CDT [facility] BUN 8.0(L) 9.8 - 20.1 mg/dL 02/01/2025 4:59 AM CDT [facility] Creatinine 0.69 0.57 - 1.11 mg/dL 02/01/2025 4:59 AM CDT [facility] Alkaline Phosphatase 94 40 - 150 U/L 02/01/2025 4:59 AM CDT [facility] ALT 24 <=55 U/L 02/01/2025 4:59 AM CDT [facility] AST 31 5 - 34 U/L 02/01/2025 4:59 AM CDT [facility] Protein Total 7.5 6.4 - 8.3 gm/dL 02/01/2025 4:59 AM CDT [facility] Albumin 4.1 3.4 - 4.8 gm/dL 02/01/2025 4:59 AM CDT [facility] Globulin Total 3.4 2.6 - 4.0 gm/dL 02/01/2025 4:59 AM CDT [facility] Albumin/Globulin Ratio 1.2 0.9 - 1.6 02/01/2025 4:59 AM CDT [facility] Bilirubin Total 0.8 0.2 - 1.2 mg/dL 02/01/2025 4:59 AM CDT [facility] eGFR >90 >90 mL/min/1.7 3m2 02/01/2025 4:59 AM CDT [facility] Comment:The GFR result was c alculated using the updated CKD-EPI Creatinine Equation (2020). Blood BLOOD SPECIMEN / Unknown Lab Venipuncture / Unknown 02/01/2025 4:00 AM CDT 02/01/2025 4:34 AM CDT Ricki Lott DO LAB - CHEMISTRY [facility] Organization Address City/State/RUST Co de Phone Number [facility] [address] * CT ABDOMEN PELVIS W CONTRAST (01/31/2025 7:34 PM CDT) Only the most recent of2 resultswithin the time period is included. Anatomical Region Laterality Modality Abdomen, Pelvis Computed Tomogra phy 02/01/2025 6:04 AM CDT Impressions 02/01/2025 6:08 AM CDT IMPRESSION: Questionable colitis distal transverse and descending colon.. No other significant findings. > Interpreting Provider: Adry Velasquez MD on 02/01/2025 6:08 AM Narrative 02/01/2025 6:08 AM CDT PROCEDURE: CT ABDOMEN PELVIS W CONTRAST 02/01/2025 6:04 AM HISTORY: R10.32: LLQ pain. FINDINGS AND IMPRESSION: COMPARISON: No comparison. CONTRAST: 94 cc Isovue. Radiation dose reduction technique was utilized. - Automated exposure control (AEC) - Adjustment of mA and/or kV, according to the patient's size - use of iterative reconstruction technique - CT scan done according to ALARA or ALARA/IMAGE GENTLY FINDINGS: Lung bases are clear. No intrahepatic ductal dilation or mass lesions. Spleen is normal. Adrenal glands, pancreas, gallbladder and both kidneys are unremarkable. Bladder is unremarkable. No free fluid or lymphadenopathy. No focal intra-abdominal pelvic mass Possible wall thickening of transverse and descending colon which could be secondary to colitis. Correlate clinically. Normal appendix is of diverticulitis. Unremarkable uterus and adnexal regions. No free fluid. Normal AA. No evidence of AAA DJD spine. Procedure Note Adry Velasquez MD - 02/01/2025 PROCEDURE: CT ABDOMEN PELVIS W CONTRAST 02/01/2025 6:04 AM HISTORY: R10.32: LLQ pain. FINDINGS AND IMPRESSION: COMPARISON: No comparison. CONTRAST: 94 cc Isovue. Radiation dose reduction technique was utilized. - Automated exposure control (AEC) - Adjustment of mA and/or kV, according to the patient's size - use of iterative reconstruction technique - CT scan done according to ALARA or ALARA/IMAGE GENTLY FINDINGS: Lung bases are clear. No intrahepatic ductal dilation or mass lesions. Spleen is normal. Adrenal glands, pancreas, gallbladder and both kidneys are unremarkable. Bladder is unremarkable. No free fluid or lymphadenopathy. No focal intra-abdominal pelvic mass Possible wall thickening of transverse and descending colon which couldbe secondary to colitis. Correlate clinically. Normal appendix is of diverticulitis. Unremarkable uterus and adnexal regions. No free fluid. Normal AA. No evidence of AAA DJD spine. IMPRESSION: Questionable colitis distal transverse and descending colon.. No other significant findings. > Interpreting Provider: Adry Velasquez MD on 02/01/2025 6:08 AM Elizabeth Bañuelos DEBT MANAGEMENT COUNSELOR-SUPERVISOR [employer] CT ORDERABLES * HCG URINE QUALITATIVE - POCT (IP) BEAKER - ILL (01/31/2025 6:11 PM CDT) Pathologist [facility] HCG Qual Urine Negative Negative [facility] Lot # [id number] [facility] Expiration Date 05/04/2026 [facility] QC Verified Yes Yes [facility] POC T TESTING Urine URINE / Unknown 01/31/2025 6 :11 PM CDT Elizabeth [facility] - POINT O F CARE ORDERABLES Performing Organization Address [facility]/ZIP Co de Phone Number [facility] [address] * LIPASE BLOOD (01/31/2025 6:11 PM CDT) Only the most recent of3 resultswithin the time period is included. Pathologist [facility] Lipase 17 8 - 78 U/L 01/31/2025 6:46 PM CDT [facility] Blood BLOOD SPECIMEN / Unknown Venipuncture / Unknown 01/31/2025 6:11 PM CDT 01/31/2025 6:27 PM CDT Elizabeth [facility] - ONCOLOGY ACCOUNT SPECIALIST RY ORDERABLES Performing Organization Address [facility]/ZIP Co de Phone Number [facility] [address] * (ABNORMAL) URINALYSIS REFLEX TO MICROSCOPIC NO CULTURE (01/31/2025 6:01 PM CDT) Pathologist [facility] Color UA Yellow Straw, Yellow 01/31/2025 6:43 PM CDT [facility] Clarity UA Cloudy(A) Clear 01/31/2025 6:43 PM CDT [facility] Glucose UA Negative Negative 01/31/2025 6:43 PM CDT [facility] Bilirubin UA Negative Negative 01/31/2025 6:43 PM CDT [facility] Ketone UA Negative Negative 01/31/2025 6:43 PM CDT [facility] Specific Flippin UA 1.021 1.005 - 1.030 01/31/2025 6:43 PM CDT [facility] Blood UA 1+(A) Negative 01/31/2025 6:43 PM CDT [facility] pH UA 6.0 5.0 - 8.0 pH 01/31/2025 6:43 PM CDT [facility] Protein UA Negative Negative 01/31/2025 6:43 PM CDT [facility] Urobilinogen UA Negative Negative, >8.0 mg/dL 01/31/2025 6:43 PM CDT [facility] Nitrite UA Negative Negative 01/31/2025 6:43 PM CDT [facility] Leukocyte UA Trace(A) Negative 01/31/2025 6:43 PM CDT [facility] Urine Microscopy Urine microscopy to follow 01/31/2025 6:43 PM CDT [facility] Urine URINE SPECIMEN OBTAINED BY CLEAN CATCH PROCEDURE / Unknown Collection / Unknown 01/31/2025 6:01 PM CDT 01/31/2025 6:26 PM CDT Narrative [facility] - 01/31/2025 6:43 PM CDT Elizabeth Bañuelos APRN-SUPERVISOR [employer] LAB - URINALY SIS ORDERABLES [facility] [address] * (ABNORMAL) URINE MICROSCOPIC ONLY (01/31/2025 6:01 PM CDT) RBC UA 3-5 None Seen, 0-2, 3-5 # /hpf 01/31/2025 6:43 PM CDT [facility] WBC UA 0-5 None Seen, 0-5 # /hpf 01/31/2025 6:43 PM CDT [facility] Bacteria UA Trace(A) None Seen 01/31/2025 6:43 PM CDT [facility] Squamous Epithelial Cells >20(A) None Seen, 0-2, 3-5 /hpf 01/31/2025 6:43 PM CDT [facility] Mucus UA 2+ /LPF 01/31/2025 6:43 PM CDT [facility] Urine URINE SPECIMEN OBTAINED BY CLEAN CATCH PROCEDURE / Unknown Collection / Unknown 01/31/2025 6:01 PM CDT 01/31/2025 6:26 PM CDT Narrative [facility] - 01/31/2025 6:43 PM CDT Elizabeth Bañuelos APRN-SUPERVISOR [employer] LAB - URINALY SIS ORDERABLES [facility] 1 [place], [place] [id number] [place] [address] * BLOOD TYPE VERIFICATION (01/18/2025 8:28 AM [facility]) ABO Rh A POS 01/18/2025 9:2 3 AM [facility] [facility] BLOOD BANK Blood Bank BLOOD SPECIMEN / Unknown Venipuncture / Unknown 01/18/2025 8:28 AM FISHER PURSE SEINE 01/18/2025 8:34 AM FISHER PURSE SEINE Desiree Grey MD LAB - BLOOD BANK ORD ERABLES [facility] BLOOD BANK [address] * CT ANGIO ABDOMEN PELVIS [id number] (01/18/2025 8:17 AM FISHER PURSE SEINE) Anatomical Region Laterality Modality Abdomen, Pelvis Computed Tomogra phy 01/18/2025 8:59 AM FISHER PURSE SEINE Impressions 01/18/2025 9:19 AM FISHER PURSE SEINE IMPRESSION: 1. No evidence of active GI bleeding. Patent and normal visceral and renal arteries as well as iliac and femoral arteries. 2. Scattered diverticula in the right colon/cecum. Normal appendix. Otherwise normal small and large bowel throughout the abdomen and pelvis. 3. Left breast implant in place. Normal solid abdominal viscera. Cholecystectomy. > Interpreting Provider: Luz Maria Wagoner DO on 01/18/2025 9:19 AM Narrative 01/18/2025 9:19 AM FISHER [facility]SE SEINE PROCEDURE: CT ANGIO ABDOMEN PELVIS INDICATION: R10.11: RUQ pain K92.0: Coffee ground emesis R11.2: Nausea and vomiting, unspecified vomiting type COMPARISON: CT angiogram abdomen and pelvis 01/13/2025 TECHNIQUE: Multidetector helical CT was performed through the abdomen and pelvis in the axial plane after the administration of intravenous contrast. Helical data was reconstructed at 3 mm slice thickness in the axial plane. Coronal and sagittal MPR as well as MIP reformatted images were also reviewed. Rotating 3D images were also provided for interpretation. CONTRAST: IOPAMIDOL 61 % IV SOLN:95 mL FINDINGS: Vascular structures: There is normal-appearing abdominal aorta, iliac arteries, visceral and renal arteries. Normal visualized femoral arteries present. There is no aneurysm, dissection, high-grade stenosis or thrombosis. ABDOMEN: The visualized lower thorax demonstrates normal visualized lung bases. No pleural effusions. Heart is normal sized. Left breast implants present. The liver is normal-sized. Cholecystectomy. No biliary ductal dilatation. CBD measures 7-8 mm in diameter. There is normal spleen, pancreas, and adrenal glands. Symmetrically enhanced kidneys bilaterally without hydronephrosis or pararenal fluid collections. There is no free air, ascites or bowel obstruction. There is no hiatal hernia. The stomach and duodenal loop are grossly normal. There is no lymphadenopathy in the abdomen or retroperitoneum. PELVIS: The bladder is decompressed. There is normal anteverted uterus. There are follicles in the ovaries. There is no free pelvic fluid. There is no inguinal hernias or pelvic lymphadenopathy. There is normal-appearing rectum. There is decompressed sigmoid and descending colon. There is decompressed transverse. There is scattered diverticula in the right colon present. There is normal appendix. A small bowel loops are nondilated. BONES: No acute osseous abnormalities or intraosseous lesions. There is diffuse disc bulging at L5-S1. Normal remainder the vertebral bodies and disc spaces. Procedure Note Luz Maria Wagoner, DO - 01/18/2025 PROCEDURE: CT ANGIO ABDOMEN PELVIS INDICATION: R10.11: RUQ pain K92.0: Coffee ground emesis R11.2: Nausea and vomiting, unspecified vomiting type COMPARISON: CT angiogram abdomen and pelvis 01/13/2025 TECHNIQUE: Multidetector helical CT was performed through the abdomenand pelvis in the axial plane after the administration of intravenouscontrast. Helical data was reconstructed at 3 mm slice thickness in the axialplane. Coronal and sagittal MPR as well as MIP reformatted images were also reviewed. Rotating 3D images were also provided for interpretation. CONTRAST: IOPAMIDOL 61 % IV SOLN:95 mL FINDINGS: Vascular structures: There is normal-appearing abdominal aorta, iliac arteries, visceral and renal arteries. Normal visualized femoral arteries present. There is no aneurysm, dissection, high-grade stenosis or thrombosis. ABDOMEN: The visualized lower thorax demonstrates normal visualized lung bases.No pleural effusions. Heart is normal sized. Left breast implants present. The liver is normal-sized. Cholecystectomy. No biliary ductaldilatation. CBD measures 7-8 mm in diameter. There is normal spleen, pancreas, and adrenal glands. Symmetrically enhanced kidneys bilaterally without hydronephrosis or pararenal fluid collections. There is no free air, ascites or bowel obstruction. There is no hiatal hernia. The stomach and duodenal loop are grossly normal. There is no lymphadenopathy in the abdomen or retroperitoneum. PELVIS: The bladder is decompressed. There is normal anteverted uterus. Thereare follicles in the ovaries. There is no free pelvic fluid. There is no inguinal hernias or pelvic lymphadenopathy. There is normal-appearing rectum. There is decompressed sigmoid and descending colon. There is decompressed transverse. There is scattered diverticula in the right colon present. There is normal appendix. Asmall bowel loops are nondilated. BONES: No acute osseous abnormalities or intraosseous lesions. There is diffuse disc bulging at L5-S1. Normal remainder the vertebral bodies and disc spaces. IMPRESSION: 1. No evidence of active GI bleeding. Patent and normal visceral andrenal arteries as well as iliac and femoral arteries. 2. Scattered diverticula in the right colon/cecum. Normal appendix. Otherwise normal small and large bowel throughout the abdomen andpelvis. 3. Left breast implant in place. Normal solid abdominal viscera. Cholecystectomy. > Interpreting Provider: Luz Maria Wagoner DO on 01/18/2025 9:19 AM Desiree Grey MD CT ORDERABLES * TYPE + SCREEN PANEL (01/18/2025 7:46 AM FISHER PURSE SEINE) ABO Rh A POS 01/18/2025 9:23 AM FISHER PURSE SEINE [facility] BLOOD BANK Antibody Screen NEG 9:23 AM FISHER [facility]SE SEINE [facility] BLOOD BANK Blood Bank BLOOD SPECIMEN / Unknown Venipuncture / Unknown 01/18/2025 7:46 AM FISH[facility] SEINE 01/18/2025 7:50 AM [facility] SEINE Desiree Grey MD LAB - BLOOD BANK ORD ERABLES Performing Organization Address [facility]/ZIP Co de Phone Number [facility] BLOOD BANK [address] * (ABNORMAL) PT-INR (01/18/2025 7:46 AM FISHER PURSE SEINE) [facility] PT 13.1 11.3 - 14.8 sec 01/18/2025 8:09 AM [facility]ER [facility]SE SEINE [facility] LABORATORY INR 1.00(L) 2 - 3 01/18/2025 8:09 AM [facility]ER [facility]SE SEINE [facility] LABORATORY Blood BLOOD SPECIMEN / Unknown Venipuncture / Unknown 01/18/2025 7:46 AM FISHER PURSE SEINE 01/18/2025 7:50 AM [facility]ER PURSE SEINE Narrative [facility]OR[facility] - 01/18/2025 8:09 AM [facility] Recommended therapeutic INR ranges for Oral Anticoagulant Therapy: 2.0-3.0 For prevention of Thrombosis or Embolism and treatment of Venous Thrombosis. 2.5- 3.5 for prevention of Recurrent Embolism or treatment of patients with Mechanical Prosthetic Heart Valves. Desiree Grey MD LAB - COAGULATION OR DERABLES Performing Organization Address [facility]/ZIP Co de Phone Number [facility]ORATORY [address] [place] [address] * MAGNESIUM BLOOD (01/18/2025 7:46 AM FISHER [facility]SE SEINE) [facility] Magnesium 1.9 1.6 - 2.6 mg/dL 01/18/2025 8:13 AM [facility] SEINE [facility] LABORATORY Blood BLOOD SPECIMEN / Unknown Venipuncture / Unknown 01/18/2025 7:46 AM [facility] SEINE 01/18/2025 7:50 AM [facility] SEINE Desiree Grey MD LAB - CHEMISTRY ORDE RABMAGNOLIA Performing Organization Address [facility]/[place] Co de Phone Number [facility]OR[facility] [address] [place] [address] * CBC W/O DIFFERENTIAL (01/14/2025 4:40 AM FISHER [facility]SE SEINE) [facility] WBC 5.0 4.0 - 10.7 x10E9/L 01/14/2025 5:03 AM [facility] SEINE [facility]OR[facility] RBC Count 4.20 3.90 - 5.20 x10E12/L 01/14/2025 5:03 AM [facility] Hemoglobin 12.7 11.9 - 15.8 g/dL 01/14/2025 5:03 AM [facility] Hematocrit 38.7 34.8 - 46.1 % 01/14/2025 5:03 AM [facility] MCV 92.1 80.0 - 98.0 fL 01/14/2025 5:03 AM [facility] MCH 30.2 26.7 - 33.6 pg 01/14/2025 5:03 AM [facility] MCHC 32.8 31.7 - 36.3 g/dL 01/14/2025 5:03 AM [facility] RDW-CV 13.1 11.3 - 14.8 % 01/14/2025 5:03 AM [facility] Platelet Count 245 150 - 420 x10E9/L 01/14/2025 5:03 AM [facility] MPV 9.5 7.8 - 11.4 fL 01/14/2025 5:03 AM [facility] Blood BLOOD SPECIMEN / Unknown Lab Venipuncture / Unknown 01/14/2025 4:40 AM [facility] SEINE 01/14/2025 4:44 AM [facility] Washington Cui MD LAB - HEMATOLOGY ORD ERABLES Performing Organization Address City/State/[place] Co de Phone Number [facility]OR[facility] [address] * SARS-COV-2 (COVID-19) FLU A/B RSV PCR RAPID (01/13/2025 7:51 AM [facility] COVID-19 PCR Not detected Not detected, Invalid 01/13/2025 8:37 AM [facility] Influenza A PCR Not detected Not detected 01/13/2025 8:37 AM [facility] Influenza B PCR Not detected Not detected 01/13/2025 8:37 AM [facility] RSV PCR Not detected Not detected 01/13/2025 8:37 AM [facility] Microbiology SPECIMEN FROM NASOPHARYNGEAL STRUCTURE / Unknown Collection / Unknown 01/13/2025 7:51 AM [facility] 01/13/2025 7:57 AM [facility] SEINE Narrative [facility]OR[facility] - 01/13/2025 8:37 AM FISHER PURSE SEINE The Cepheid Xpert Xpress SARS-COV-2 has been authorized by the Food and Drug administration (FDA) under an Emergency Use Authorization (EUA). This test has been validated in accordance with the FDA's guidance document Policy for Diagnostic Testing in Laboratories Certified to perform High Complexity Testing under CLIA prior to Emergency Use Authorization for Coronavirus Disease-2019 during the Public Health Emergency issued on January 21, 2020. FDA independent review of this validation is pending. This test is only authorized for the duration of time the declaration that circumstances exist justifying the authorization of emergency use of in vitro diagnostic tests for detection of SARS-COV-2 virus and/or diagnosis of COVID-19 infection under 564(b)(1)of the Act, 21 U.S.C. 360bbb-3 (b) (1), unless the authorization is terminated or revoked sooner. Washington Cui MD LAB - MICROBIOLOGY O RDERABLES Performing Organization Address [facility]/[place] Co de Phone Number [facility] [address] * HCG BLOOD QUALITATIVE (01/13/2025 7:51 AM FISHER [facility] SEINE) Pathologist [facility] HCG Qual Serum Negative Negative 01/13/2025 8:13 AM [facility] SEINE [facility]OR[facility] Blood BLOOD SPECIMEN / Unknown Venipuncture / Unknown 01/13/2025 7:51 AM FISHER PURSE SEINE 01/13/2025 7:57 AM [facility] SEINE Washington Cui MD LAB - CHEMISTRY ORDE RABLES Performing Organization Address [facility]/[place] Co de Phone Number [facility] [address] * (ABNORMAL) SARS-COV-2 (COVID-19) AG (AMB) POCT (11/29/2024 3:05 PM FISHER PURSE SEINE) Pathologist [facility] SARS-CoV-2 Ag Positive(A) Negative [facility] Lot # [id number] [facility] Expiration Date [id number] [facility] Instrument Serial Number 0 [facility] COVID Internal Control Acceptable Acceptable [facility] Microbiology SPECIMEN FROM NASAL FOSSAE / Unknown 11/29/2024 3:05 PM [facility]INE Marielena Nobleford DEBT MANAGEMENT COUNSELOR-SUPERVISOR MOLD YARD LAB - POIN T OF CARE ORDERABLES [facility] [address] [phone] * STREP A SCREEN - POINT OF CARE (AMB) [facility] (11/29/2024 3:01 PM [facility] SEINE) Strep A Rapid POCT Negative Negative [facility] Strep A Rapid Screen Internal Control POCT Present [facility] Throat ENTIRE THROAT (SURFACE REGION OF NECK) / Unknown 11/29/2024 3:01 PM [facility] SEINE Marielena Nobleford DEBT MANAGEMENT COUNSELOR-SUPERVISOR [employer] LAB - POIN T OF CARE ORDERABLES Performing Organization Address City/[facility]/ZIP Co de Phone Number [facility] [address] [phone] from Last 3 Months Advance Directives * Full Code (Latest Code Status on File) Date Activated Date Inactivated Comments 01/31/2025 8:57 PM 02/02/2025 5:37 PM * Full Code Date Activated Date Inactivated Comments 01/13/2025 11:14 AM 01/14/2025 1:59 PM * Full Code Date Activated Date Inactivated Comments 10/07/2024 12:03 PM 10/10/2024 5:01 PM * Full Code Date Activated Date Inactivated Comments 12/03/2023 9:21 PM 12/10/2023 4:53 PM * Full Code Date Activated Date Inactivated Comments 03/23/2023 9:23 PM 03/26/2023 3:23 PM Care Teams Diesel Motor Mechanic Relationship Specialty Start Date End Date Chaim Sorto MD [address] [place] [phone] PCP - General Internal Medicine 09/29/24 Tip Srivastava MD [address] [address] Physician Gastroenterology 01/27/23 Onofre Garcia DO [facility] [address] [place] [phone] Cleaner And Presser Cardiac Electrophysiology 01/19/24 Onofre Garcia DO 2 [facility] [address] [place] [phone] Cleaner And Presser Cardiac Electrophysiology 05/02/24
--- OUTSIDE RECORDS SUMMARY | 2025-02-13 08:39 | XMS_ITS | Encounter Summary ---
Author Organization [facility] Address [address] [place] [address] Care Team Providers Care Bulb Planter Name Role Phone Chaim Sorto MD Primary Care Provider [phone] Reason for Visit * Reason Comments Clinical Consult Before Scheduling Patient Communication Encounter Details Date Type Department Care Team (Late st Contact Info) Description 07/26/2024 Telephone [facility] Primary Care [address] [place] [address] Chaim Sorto MD [address] [place] [address] [address] [place] [address] Clinical Consult Before Scheduling; Patient Communication Social History Tobacco Use Types Packs/Day Years Used Date Smoking Tobacco: Every Day Cigarettes 0.3 1 Passive Smoke Exposure: Current Smokeless Tobacco: Never Alcohol Use Standard Drinks/Week Comments No 0 (1 standard drink = 0.6 oz pur e alcohol) socially Comments No Sex and Gender Information Value Date Recorded Sex Assigned at Not on file Legal Sex Female 5:49 AM DATABASE DEVELOPER Gender Identity Not on file Sexual Orientation Not on file documented as of this encounter Miscellaneous Notes * Telephone Encounter - Yessi Tejada - 07/26/2024 12:27 PM CDT Copied from [facility] #[id number]. Topic: CPA Information Request >> Jul 26, 2024 12:25 PM Yessi Lopez wrote: Attempted back line 3x's, no answer. Patient is at work and might not be able to answer, can leave VM. * Telephone Encounter - Yessi Tejada - 07/26/2024 12:22 PM CDT Copied from [facility] #[id number]. Topic: CPA Information Request - Patient Call Back >> Jul 26, 2024 12:21 PM Yessi Lopez wrote: Caller is returning phone call from clinic. Caller Name: Mary Carmen Contreras Patient/Caregiver Callback Number: Telephone Information: Clinic Left Note In Chart Is there a note from the clinic requesting the caller be transferred when they call back? Yes - note is for PCN Call Notes: Note indicated caller should be transferred to clinic when they called back. Patient got disconnected from PCN line, transferred patient back. * Telephone Encounter - Erendira Taylor LPN - 07/26/2024 12:18 PM CDT Pt states passed kidney stone last week. Has blood in stool and urine. Last day of menstrual cycle ended. Continues to wear pad, had blood in 3 different spots on pad. Jagged pain around belly button, moves to left and right side. Pt instructed to go to Urgent Care. Pt verbalized understanding. * Telephone Encounter - Rosendo Dewey - 07/26/2024 12:17 PM CDT Copied from [facility] #[id number]. Topic: Symptomatic Care >> Jul 26, 2024 12:12 PM Rosendo Price wrote: Caller has new symptoms and is seeking care. Age Range/Symptom: Adult: 18+ - Bleeding Now - Actively Bleeding Caller Name: Mary Carmen Contreras Callback Number: [phone] Call Notes: Mary Carmen called in regarding issue with having issue with blood in her urine & in her stool. Mary Carmen also mentioned she passed a stone because she heard a clink in the toilet. Mary Carmen stated she has sharp pain in her stomach from left to right. Symptoms started on 07/12/24. I informed Mary Carmen I would transfer to clinical staff for assistance. Please Advis documented in this encounter Plan of Treatment Upcoming Encounters Date Type Department Care Team (Late st Contact Info) Description 06/13/2025 2:20 PM CDT Office Visit [address] [place] [address] Chaim Sorto MD [address] [place] [address] [address] [place] [address] 11/01/2025 11:00 AM DATABASE DEVELOPER Office Visit [address] [place] [address] Chaim Sorto MD [address] [place] [address] [address] [place] [address] documented as of this encounter Visit Diagnoses Not on filedocumented in this encounter Additional Health Concerns Infection Onset Date Last Indicated Resolved Time R/O GI Pathogen 10/12/2024 10/12/2024 10/13/2024 1 :30 PM DATABASE DEVELOPER documented as of this encounter Care Teams Bulb Planter Relationship Specialty Start Date End Date Chaim Sorto MD PCP - General 10/24/09 documented as of this encounter
--- OUTSIDE RECORDS SUMMARY | 2025-02-13 08:39 | XMS_ITS | Encounter Summary ---
Author Organization [facility] Address [address] [place] [address] Care Team Providers Care Receiving Lead Name Role Phone Chaim Sorto MD Primary Care Provider [phone] Reason for Visit * Reason Comments Clinical Consult Before Scheduling Encounter Details Date Type Department Care Team (Late st Contact Info) Description 10/11/2024 Telephone [facility] Primary Care [address] [place] [address] Chaim Sorto MD [address] [facility] [address] [place] [address] Clinical Consult Before Scheduling Social [...] on file Legal Sex Female 5:49 AM CHILDCARE WORKER Gender Identity Not on file Sexual Orientation Not on file documented as of this encounter Miscellaneous Notes * Telephone Encounter - Shobha Bustamante LPN - 10/11/2024 9:01 AM CST Pt reporting she was in the hospital the past weekend and D/C'd. Pt states she feels she was discharged too soon as the problem continues. Pt states she is unable to hold food down with emesis. She was dx with colitis and diverticulitis while in the hospital she was also told they did not have a GIspecialist that was able to see her and she was discharged. Pt also reports she can't work because they keep sending her home and she does not want to do next and the sx are triggering her anxiety and depression. HFU scheduled for tomorrow at 1230 pm in office and pts line disconnected. MMM sent with appt details. DCARE WORKER DCARE WORKER * Telephone Encounter - Mikala Whitaker - 10/11/2024 8:35 AM CHILDCARE WORKER Copied from [facility] #[id number]. Topic: Symptomatic Care >> Oct 11, 2024 8:29 AM Mikala Bueno wrote: Caller has new symptoms and is seeking care. Age Range/Symptom: Adult: 18+ - Pain, new onset and/or severe Caller Name: Mary Carmen Contreras Callback Number: Telephone Information: Call Notes: Patient stated she is in a lot of pain and nauseous, and throwing up. Patient stated she was admitted to Hospital on Thursday and was discharged yesterday because there is no GI specialist in the hospital and patient was told to transfer. Patient wants to talk to a nurse or someone from the clinic. Patient is wanting to know if she needs to go to the ER, patient also stated it's triggering her anxiety and depression. Patient is wanting a call back as soon as possible Attempted transfer to N line and no answer, message routed to conklin. DCARE WORKER documented in this encounter Plan of Treatment Upcoming Encounters Date Type Department Care Team (Late st Contact Info) Description 06/13/2025 2:20 PM CDT Office Visit [address] [place] [phone] Chaim Sorto MD [address] [place] [address] [address] [place] [phone] 11/01/2025 11:00 AM CHILDCARE WORKER Office Visit [address] [place] [phone] Chaim Sorto MD [address] [place] [address] [address] [place] [phone] documented as of this encounter Visit Diagnoses Not on filedocumented in this encounter Additional Health Concerns Infection Onset Date Last Indicated Resolved Time R/O GI Pathogen 10/12/2024 10/12/2024 10/13/2024 1 :30 PM CHILDCARE WORKER documented as of this encounter Care Teams Receiving Lead Relationship Specialty Start Date End Date Chaim Sorto MD PCP - General 10/24/09 documented as of this encounter
--- OUTSIDE RECORDS SUMMARY | 2025-02-13 08:39 | XMS_ITS | Encounter Summary ---
Author Organization [facility] Address [address] [place] [address] Care Team Providers Care Shop Repairer Name Role Phone Chaim Sorto MD Primary Care Provider [phone] Encounter Details Date Type Department Care Team (Late Contact Info) Description 12/29/[address] [place] [address] Chaim Sorto MD [address] [place] [address] [address] [place] [address] Social History Tobacco Use Types Packs/Day Years Used Date Smoking Tobacco: Every Day Cigarettes 0.3 1 Smokeless Tobacco: Never Alcohol Use Standard Drinks/Week Comments No 0 (1 standard drink = 0.6 oz pur e alcohol) socially Comments No Sex and Gender Information Value Date Recorded Sex Assigned at Not on file Legal Sex Female 5:49 AM MAIL SUPERINTENDENT Gender Identity Not on file Sexual Orientation Not on file documented as of this encounter Plan of Treatment Upcoming Encounters Date Type Department Care Team (Late Contact Info) Description 06/13/2025 2:20 PM CDT Office Visit [address] [place] [address] Chaim Sorto MD [address] [place] [address] [address] [place] [address] 11/01/2025 11:00 AM MAIL SUPERINTENDENT Office Visit [address] [place] [address] Chaim Sorto MD [address] [place] [phone] documented as of this encounter Visit Diagnoses Not on filedocumented in this encounter Additional Health Concerns Infection Onset Date Last Indicated Resolved Time R/O GI Pathogen 10/12/2024 10/12/2024 10/13/2024 1 :30 PM MAIL SUPERINTENDENT documented as of this encounter Care Teams Shop Repairer Relationship Specialty Start Date End Date Chaim Sorto MD PCP - General 10/24/09 documented as of this encounter
[2025-02-13 09:27] LABS: BEDSIDEPREGUCG Negative (Negative)
[2025-02-13 09:36] LABS: Basophils Absolute Auto 0.1 K/mm3 (0.0-0.1); Basophils Percent Auto 1.1 % (0.2-1.2); Eosinophils Absolute Auto 0.1 K/mm3 (0-0.3); Eosinophils Percent Auto 2.1 % (0-4.4); Hematocrit 41.5 % (37.0-47.0); Hemoglobin 13.7 g/dL (12.0-15.0); Immature Granulocyte Absolute 0.01 K/mm3 (0.00-0.031); Immature Granulocyte Percent A 0.2 % (0-0.5); Lymphocytes Percent Auto 22.9 % (18.3-44.2); Mean Platelet Volume 9.6 fl (7.4-10.4); Monocytes Absolute Auto 0.4 K/mm3 (0.1-0.6); Monocytes Percent Auto 9.6 % (2.6-8.5); Neutrophils Absolute Auto 2.8 K/mm3 (1.3-6.7); Neutrophils Percent Auto 64.1 % (45.5-73.1); Platelet Count Result 300 k/mm3 (150-375); Red Blood Count 4.56 M/mm3 (4.2-5.4); Red Cell Distribution Width 13.2 % (11.5-14.5); White Blood Count 4.4 K/mm3 (4.5-10.0)
[2025-02-13 09:39] LABS: Add Urine Microscopic? NO; Appearance Urine Clear (Clear); Bilirubin Urine Negative (Negative); Blood Urine Negative (Negative); Color Urine Yellow (Yellow); Glucose Urine UA Negative (Negative); Ketones Urine Negative (Negative); Leukocyte Esterase Ur Negative LEU/UL (Negative); Nitrate Urine Negative (Negative); Protein Urine Negative (Negative); Specific Grav Ur 1.015 (1.001-1.035); Urobilinogen Urine 0.2 mg/dL (<2.0); pH Urine 8.5 (5.0-9.0)
--- NOTE | 2025-02-13 09:56 | ED_ITS ---
HPI - Nausea/Vomiting/Diarrhea General Chief complaint: Nausea/Vomiting/Diarrhea Stated complaint: vomiting for 24 hours Time Seen by Provider: 02/13/25 09:41 History of Present Illness HPI Narrative: Pt has history of colitis and diverticulitis with recent hospital admission. Pt says pain started again yesterday. Pt took zofran without relief. Pt has vomited and had numerous episodes of diarrhea. Pt has general abdominal pain but worst in epigastrum and left side. Related Data Allergies Allergy/AdvReac Type Severity Reaction Status Date / Time ciprofloxacin Allergy Swelling Verified 02/13/25 08:29 diphenhydramine (From Allergy Hives Verified 02/13/25 11:07 Benadryl) ketorolac (From Toradol) Allergy Hives Verified 02/13/25 08:29 metronidazole (From Flagyl) Allergy Swelling Verified 02/13/25 08:29 prochlorperazine (From Allergy Hives Verified 02/13/25 11:07 Compazine) trazodone AdvReac Unknown nightmares Verified 02/13/25 08:29 Review of Systems 2 Review of Systems: All systems reviewed & are unremarkable except as noted in HPI and below PMFSH Past Medical History Medical History Acute Crohn's disease without complication Colonic polyp IBS (irritable bowel syndrome) Family History Family History Other Colon polyp Social History Social History Gender identity (if verbalized by the patient): Female Exam 2 Const: General: healthy appearing and no acute distress Nutritional Appearance: well nourished Orientation/consciousness: patient oriented x3 Limitations: no limitations HENMT: Mouth: Yes dry mucous membranes Resp: Effort & Inspection: normal respiratory effort Auscultation: clear to auscultation bilaterally Cardio: Rate: regular rate Rhythm: regular rhythm GI: GI Palp: Yes Soft to palpation and Yes Tenderness to palpation present (GI) (diffusely bu mostly left side and epigastric regoin) Auscultation: n ormal bowel sounds Skin: General skin exam: normal color Rashes: no rashes Neuro: General: patient oriented x3, moves all extremities and no focal motor deficits Cranial nerves: Yes Nystagmus not present Speech: normal speech Extrem: General: normal to inspection and no clubbing, cyanosis or edema Psych: Mental Status: mental status grossly normal Affect: normal affect Attitude: cooperative Course Vital Signs Vital signs: Vital Signs Temperature 97.5 F L 02/13/25 08:30 Pulse Rate 99 02/13/25 08:30 Respiratory Rate 15 02/13/25 08:30 Blood Pressure 117/79 02/13/25 08:30 Pulse Oximetry 100 02/13/25 08:30 Oxygen Delivery Room Air 02/13/25 08:30 Temperature 97.5 F L 02/13/25 08:30 Pulse Rate 98 02/13/25 14:09 Respiratory Rate 18 02/13/25 14:09 Blood Pressure 115/62 02/13/25 14:09 Pulse Oximetry 100 02/13/25 14:09 Oxygen Delivery Room Air 02/13/25 08:30 MDM - Nausea/Vomiting/Diarrhea MDM Narrative Medical decision making narrative: Pt has colitis and diverticlulits hx. Pt presents with abdominal pain and vomiting and diarrhea. will get abd pain work up and repeat ct and treat pain and nausea and give fluids. zofran no effective. pt given droperidol and got relief and was resting. discussed with pt observation in hospital vs home on meds and would prefer going home. Lab Data 02/13/25 09:20 02/13/25 10:18 Labs: Lab Results 02/13/25 02/13/25 02/13/25 Range/Units 09:20 09:24 10:18 WBC 4.4 L (4.5-10.0) K/mm3 RBC 4.56 (4.2-5.4) M/mm3 Hgb 13.7 (12.0-15.0) g/dL Hct 41.5 (37.0-47.0) % MCV 91.0 (80-100) fl MCH 30.0 (26-34) pg MCHC 33.0 (32-36) g/dl RDW 13.2 (11.5-14.5) % Plt Count 300 (150-375) k/mm3 MPV 9.6 (7.4-10.4) fl Immature Gran % (Auto) 0.2 (0-0.5) % Neut % (Auto) 64.1 (45.5-73.1) % Lymph % (Auto) 22.9 (18.3-44.2) % Hutchinson % (Auto) 9.6 H (2.6-8.5) % Eos % (Auto) 2.1 (0-4.4) % Baso % (Auto) 1.1 (0.2-1.2) % Lymph # (Auto) 1.00 (0.9-3.2) K/mm3 Hutchinson # (Auto) 0.4 (0.1-0.6) K/mm3 Eos # (Auto) 0.1 (0-0.3) K/mm3 Baso # (Auto) 0.1 (0.0-0.1) K/mm3 Abs Immat Gran (auto) 0.01 (0.00-0.031) K/mm3 Absolute Neuts (auto) 2.8 (1.3-6.7) K/mm3 Absolute Nucleated RBC 0.000 (0.0-0.012) K/mm3 Nucleated RBC % 0.0 (0.0-0.2) % Sodium 139 (137-145) mmol/L Potassium 4.2 (3.4-5.0) mmol/L Chloride 105 (98-107) mmol/L Carbon Dioxide 25 (22-30) mmol/L Anion Gap 9 (4-12) mmol/L BUN 8 (7-17) mg/dL Creatinine 0.66 L (0.7-1.0) mg/dL Estim Creat Clear Calc 90 ml/min Estimated GFR > 60 (59 - ) Glucose 96 (65-110) mg/dL Calcium 8.9 (8.4-10.2) mg/dL Total Bilirubin 0.2 (0.2-1.3) mg/dL AST 22 (14-36) U/L ALT 16 (6-35) U/L Alkaline Phosphatase 82 (38-126) U/L Total Protein 8.0 (6.3-8.2) g/dL Albumin 4.5 (3.5-5.1) g/dL Lipase 85 (23-300) U/L Urine Color Yellow (Yellow) Urine Appearance Clear (Clear) Urine pH 8.5 (5.0-9.0) Ur Specific [place] 1.015 (1.001-1.035) Urine Protein Negative (Negative) mg/dL Urine Glucose (UA) Negative (Negative) mg/dL Urine Ketones Negative (Negative) mg/dL Ur Blood (Man) Negative (Negative) Urine Nitrate Negative (Negative) Urine Bilirubin Negative (Negative) Urine Urobilinogen 0.2 (<2.0) mg/dL Leukocyte Esterase Rfl Negative (Negative) YESSICA/UL POC Urine HCG, Qual Negative (Negative) Discharge Plan Discharge Clinical Impression: Gastroenteritis Patient Disposition: Home, Self-Care Condition: Improved Instructions: Antibiotic Form, Gastroenteritis (ED) Patient Language: Welsh Prescriptions: New ondansetron 4 mg tablet,disintegrating 4 mg PO Q8H PRN (Reason: nausea and vomiting) Qty: 14 0RF dicyclomine 20 mg tablet 20 mg PO QID Qty: 20 0RF hydrocodone-acetaminophen 5-325 mg tablet 1 tablet PO Q6H PRN (Reason: pain) Qty: 14 0RF No Action amoxicillin-pot clavulanate [Augmentin] 875-125 mg tablet 1 tablet PO Q12H Qty: 14 0RF dicyclomine 20 mg tablet 20 mg PO BID Qty: 30 0RF ondansetron 4 mg tablet,disintegrating 4 mg PO Q8H Qty: 14 0RF polyethylene glycol 3350 17 gram/dose powder 17 g PO DAILY Qty: 119 0RF docusate sodium 50 mg capsule 50 mg PO DAILY Qty: 30 0RF simethicone 125 mg capsule 125 mg PO QID Qty: 20 0RF Rx Instructions: administer after meals and at bedtime dicyclomine 20 mg tablet 20 mg PO QID Qty: 20 0RF Follow-up/Referrals: Macario,Chaim Quispe MD [Primary Care Provider] - Stand Alone Forms: Work/School Release IP
[2025-02-13] MEDS: FAMOTIDINE 20 MG/2 ML VIAL IV PUSH (10:19)
[2025-02-13] MEDS: ONDANSETRON INJ 4 MG/2 ML VIAL IV PUSH (10:19)
[2025-02-13] MEDS: HYDROmorphone HCL INJ (*CRX) 1 MG/ML SYR IV PUSH (10:19)
[2025-02-13] MEDS: SODIUM CHLORIDE 0.9% IV 1,000 ML 999 ML IV CONT (10:19)
[2025-02-13 10:52] VITALS: BP 106/77; PULSE 63; RESP 18; O2SAT 100
[2025-02-13 10:52] LABS: Alanine Aminotransferase 16 U/L (6-35); Albumin Level 4.5 g/dL (3.5-5.1); Alkaline Phosphatase 82 U/L (38-126); Anion Gap 9 mmol/L (4-12); Aspartate Amino Transferase 22 U/L (14-36); Bilirubin,Total 0.2 mg/dL (0.2-1.3); Blood Urea Nitrogen 8 mg/dL (7-17); Calcium 8.9 mg/dL (8.4-10.2); Carbon Dioxide 25 mmol/L (22-30); Chloride 105 mmol/L (98-107); Estimated CRCL calculation 90 ml/min; Estimated Glomerular Filt Rate > 60; Glucose 96 mg/dL (65-110); Lipase 85 U/L (23-300); Potassium 4.2 mmol/L (3.4-5.0); Sodium 139 mmol/L (137-145)
[2025-02-13 10:54] VITALS: O2SAT 100
[2025-02-13 11:06] VITALS: O2SAT 100
[2025-02-13 11:07] VITALS: BP 122/91; O2SAT 100
[2025-02-13] MEDS: droPERidol 5 MG/2 ML VIAL 1.25 MG IV PUSH (11:22)
--- OUTSIDE RECORDS SUMMARY | 2025-02-13 13:38 | XMS_ITS | Clinical Summary ---
Author Organization [facility] Address [address] [place] [address] Care Team Providers Care Diesel Engine Fitter Name Role Phone Magalie Jay MD Primary Care Provider [phone] Allergies Active Allergy Reactions Criticality Noted Date [...] Department Care Team Description 11/22/2024 6:18 PM AUTO GLASS TECHNICIAN - 11/22/2024 11:35 PM RUST Emergency [facility] Emergency Room [address] [place] [address] Nico Enriquez MD Alcohol Problem; Fall Discharge [...] Comments Blood Pressure 122/82 11/22/2024 11:27 PM AUTO GLASS TECHNICIAN Pulse 85 11/22/2024 11:27 PM AUTO GLASS TECHNICIAN Temperature 36.6 C (97.8 F) 11/22/2024 6:20 PM AUTO GLASS TECHNICIAN Respiratory Rate 14 11/22/2024 6:20 PM AUTO GLASS TECHNICIAN Oxygen Saturation 98% 11/22/2024 11:27 PM AUTO GLASS TECHNICIAN Inhaled Oxygen Concentration - - Weight 61.2 kg (135 lb) 11/22/2024 6:20 PM AUTO GLASS TECHNICIAN Height 167.6 cm (5' 6 ) 11/22/2024 6:20 PM AUTO GLASS TECHNICIAN Body Mass Index 21.79 11/22/2024 6:20 PM AUTO GLASS TECHNICIAN Plan of Treatment Health Maintenance Due Date [...] transitions and discharge planning Lifestyle Criselda Sahu, dependency program director Procedure Name Priority Date/Time Associated Diagnosis Comments LACERATION REPAIR Routine 11/23/2024 2:4 [address] CHEST+ABD+PEL W CON STAT 9:[address] CERV SPINE WO CON STAT 11/22/2024 9:[address] HEAD WO CON STAT 11/22/2024 9:[address] FACIAL BONES WO CON STAT 9:09 PM AUTO GLASS TECHNICIAN ETHANOL STAT 11/22/2024 8:35 PM AUTO GLASS TECHNICIAN COMPREHENSIVE METABOLIC PANEL STAT 11/22/2024 8:35 PM AUTO GLASS TECHNICIAN CBC W/DIFF AUTOMATED STAT 11/22/2024 8:35 PM AUTO GLASS TECHNICIAN TEST URINE STAT 11/22/2024 8:33 PM AUTO GLASS TECHNICIAN from Last 3 Months Results * Lac Repair (11/23/2024 2:45 AM AUTO GLASS TECHNICIAN) Narrative Nico Enriquez MD - 11/23/2024 2:45 AM AUTO GLASS TECHNICIAN Nico Enriquez MD 11/23/2024 2:49 AM Lac Repair Date/Time: 11/23/2024 2:45 AM Performed by: Nico Enriquez MD Authorized by: Nico Enriquez MD Consent: Consent obtained: Verbal Consent given by: Patient Risks discussed: Infection, pain and poor cosmetic result Beacon protocol: Procedure explained and questions answered to [...] CT CHEST+ABD+PEL W CON (11/22/2024 9:17 PM AUTO GLASS TECHNICIAN) Anatomical Region Laterality Modality Chest, Abdomen, Pelvis Computed Tomography 11/22/2024 9:30 PM AUTO GLASS TECHNICIAN Impressions 11/22/2024 9:46 PM AUTO GLASS TECHNICIAN IMPRESSION: 1.No CT evidence of acute traumatic [...] 11/22/2024 9:30 PM Narrative 11/22/2024 9:46 PM AUTO GLASS TECHNICIAN [id number] [place] [address] CLINICAL INDICATION: 34-year-old female trauma. PHYSICAL EXAMINATION: [...] Procedure Note Opal Adler MD - 11/22/2024 [facility] [address] [place] [address] CLINICAL INDICATION: 34-year-old female trauma. PHYSICAL EXAMINATION: Fall downstairs today after drinking. Tendernessthroughout. Negative hCG previous breast surgery TECHNIQUE: CT of the chest, abdomen and pelvis was obtained in the axial projectionfollowing at 2 mm increments after administration of 80 cc of [id number]... Coronal and sagittal reconstructions were provided.. Intravenouscontrast [...] CT HEAD WO CON (11/22/2024 9:11 PM AUTO GLASS TECHNICIAN) Anatomical Region Laterality Modality Head Computed Tomogra phy 11/22/2024 9:30 PM AUTO GLASS TECHNICIAN Impressions 11/22/2024 9:32 PM AUTO GLASS TECHNICIAN IMPRESSION: No acute intracranial abnormality. Ordered By: NICO ENRIQUEZ Interpreted By: Macario Pitts MD, 11/22/2024 9:30 PM Narrative 11/22/2024 9:32 PM AUTO GLASS TECHNICIAN [facility] [address] [place] [address] Examination: CT HEAD WO CON Exam time: [...] Macario Pitts MD - 11/22/2024 [facility] [address] [place] [address] Examination: CT HEAD WO CON Exam time: [...] CERV SPINE WO CON (11/22/2024 9:11 PM AUTO GLASS TECHNICIAN) Anatomical Region Laterality Modality Spine Computed Tomogra phy 11/22/2024 9:32 PM AUTO GLASS TECHNICIAN Impressions 11/22/2024 9:35 PM AUTO GLASS TECHNICIAN IMPRESSION: 1. No evidence of fracture or subluxation. 2. Degenerative changes as described. Ordered By: NICO ENRIQUEZ Interpreted By: Macario Pitts MD, 11/22/2024 9:32 PM Narrative 11/22/2024 9:35 PM AUTO GLASS TECHNICIAN [id number] [place] [id number] Examination: CT CERV SPINE WO CON Exam [...] Procedure Note Macario Pitts MD - 11/22/2024 [id number] [place] [address] Examination: CT CERV SPINE WO CON Exam [...] FACIAL BONES WO CON (11/22/2024 9:09 PM AUTO GLASS TECHNICIAN) Anatomical Region Laterality Modality Facial Computed Tomogra phy 11/22/2024 9:46 PM AUTO GLASS TECHNICIAN Impressions 11/22/2024 9:53 PM AUTO GLASS TECHNICIAN IMPRESSION: Possible tiny right nasal bone fracture fragment. Referred By: Interpreted By: Aly Granado MD, 11/22/2024 9:46 PM Narrative 11/22/2024 9:53 PM AUTO GLASS TECHNICIAN [facility] [address] [place] [address] EXAM: CT FACIAL BONES WO CON DATE: [...] Procedure Note Aly Granado MD - [facility]/22/2024 [facility] [address] [facility] [place] [address] EXAM: CT FACIAL BONES WO CON DATE: [...] (ABNORMAL) COMPREHENSIVE METABOLIC PANEL (11/22/2024 8:35 PM AUTO GLASS TECHNICIAN) GLUCOSE 109(H) 70 - 99 MG/DL 11/22/2024 9:04 PM [facility] BUN 6(L) 7 - 18 MG/DL 11/22/2024 9:04 PM [facility] CREATININE S/P/B 1.00 0.55 - 1.02 MG/DL 11/22/2024 9:04 PM [facility] SODIUM S/P/B 143 136 - 145 MMOL/L 11/22/2024 9:04 PM [facility] POTASSIUM S/P/B 3.5 3.5 - 5.1 MMOL/L 11/22/2024 9:04 PM [facility] CHLORIDE S/P/B 105 100 - 108 MMOL/L 11/22/2024 9:04 PM [facility] CO2 26.9 21 - 32 MMOL/L 11/22/2024 9:04 PM [facility] CALCIUM S/P/B 9.1 8.5 - 10.1 MG/DL 11/22/2024 9:04 PM [facility] BILIRUBIN TOTAL S/P/B 0.1(L) 0.2 - 1.2 MG/DL 11/22/2024 9:04 PM [facility] Comment: THIS ASSAY IS NOT RECOMMENDED FOR PATIENTS UNDERGOING TREATMENT WITH ELTROMBOPAG DUE TO THE POTENTIAL FOR FALSELY ELEVATED RESULTS. TOTAL PROTEIN S/P/B 8.6(H) 6.4 - 8.2 G/DL 11/22/2024 9:04 PM [facility] ALBUMIN S/P/B 4.5 3.4 - 5.0 G/DL 11/22/2024 9:04 PM [facility] AST 18 15 - 37 U/L 11/22/2024 9:04 PM [facility] ALT 22 14 - 55 U/L 11/22/2024 9:04 PM [facility] ALKALINE PHOSPHATASE S/P/B 100 50 - 136 U/L 11/22/2024 9:04 PM [facility] ANION GAP 11.1 5 - 15 MMOL/L 11/22/2024 9:04 PM [facility] BUN CREATININE RATIO 6.0 6 - 26 11/22/2024 9:04 PM [facility] A/G RATIO 1.1 1.0 - 2.0 RATIO 11/22/2024 9:04 PM [facility] GFR ESTIMATE 75(L) >90 ML/MIN/1.7 3 M2 11/22/2024 9:04 PM [facility] Comment: NOTE: eGFR is not calculated for patients <18 years of age. This is an estimated GFR calculation using the new CKD EPI creatinine equation without race and so does not require a correction factor for race. This estimated GFR should not be used for calculating drug doses. 11/22/2024 8:35 PM AUTO GLASS TECHNICIAN Nico Enriquez MD LABORATORY Final Resu lt [facility] [address] [place] [address], * (ABNORMAL) CBC W/DIFF AUTOMATED (11/22/2024 8:35 PM AUTO GLASS TECHNICIAN) WBC 7.86 4.50 - 11.00 x10'3/uL 11/22/2024 8:46 PM [facility] RBC 4.81 4.20 - 5.40 x10'6/uL 11/22/2024 8:46 PM [facility] HGB 14.6 12.0 - 16.0 G/DL 11/22/2024 8:46 PM [facility] HCT 43.4 38.0 - 48.0 % 11/22/2024 8:46 PM [facility] MCV 90.2 81.0 - 99.0 FL 11/22/2024 8:46 PM [facility] MCH 30.4 27.0 - 31.0 PG 11/22/2024 8:46 PM [facility] MCHC 33.6 32.0 - 36.0 G/DL 11/22/2024 8:46 PM [facility] RDW 12.7 11.5 - 14.5 % 11/22/2024 8:46 PM [facility] PLT 319 130 - 400 x10'3/uL 11/22/2024 8:46 PM [facility] MPV 9.2(L) 9.3 - 12.2 FL 11/22/2024 8:46 PM [facility] CBC COMMENT AUTOMATED RBC MORPHOLOGY AND PLATELET EVALUATION NORMAL 11/22/2024 8:46 PM [facility] NEUTROPHILS % 70.7 % 11/22/2024 8:46 PM [facility] LYMPHOCYTES % 19.5 % 11/22/2024 8:46 PM [facility] MONOCYTES % 7.8 % 11/22/2024 8:46 PM [facility] EOSINOPHILS 1.1 % 11/22/2024 8:46 PM [facility] BASOPHILS 0.6 % 11/22/2024 8:46 PM [facility] IMMATURE GRANS % 0.3 % 11/22/20 24 8:46 PM [facility] NRBC % 0.0 % 11/22/2024 8:46 PM [facility] ABS. NEUTROPHILS TOTAL 5.56 1.80 - 7.70 x10'3/uL 11/22/2024 8:46 PM [facility] ABS. LYMPHOCYTES 1.53 1.00 - 4.80 x10'3/uL 11/22/2024 8:46 PM [facility] ABS. MONOCYTES 0.61 0.24 - 0.86 x10'3/uL 11/22/2024 8:46 PM [facility] ABS. EOSINOPHILS 0.09 0.04 - 0.36 x10'3/uL 11/22/2024 8:46 PM [facility] ABS. BASOPHILS 0.05 0.01 - 0.08 x10'3/uL 11/22/2024 8:46 PM AUTO GLASS TECHNICIAN [facility] ABS. IMMATURE GRANULOCYTES 0.02 0.00 - 0.49 x10'3/uL 11/22/2024 8:46 PM AUTO GLASS TECHNICIAN [facility] ABS. NUCLEATED RBC'S 0.00 0.00 - 0.01 x10'3/uL 11/22/2024 8:46 PM AUTO GLASS TECHNICIAN [facility] 11/22/2024 8:35 PM AUTO GLASS TECHNICIAN us Nico Enriquez MD LABORATORY Final Resu lt [facility] [address] [place] [address], [place] [phone] * (ABNORMAL) ETHANOL (11/22/2024 8:35 PM AUTO GLASS TECHNICIAN) ALCOHOL S/P/B 0.233(H) <0.003 G/DL 11/22/2024 9:04 PM AUTO GLASS TECHNICIAN [facility] 11/22/2024 8:35 PM AUTO GLASS TECHNICIAN us Nico Enriquez MD LABORATORY Final Resu lt [facility] [address] [place] [address], [place] [phone] * TEST URINE (11/22/2024 8:33 PM AUTO GLASS TECHNICIAN) URINE HCG TEST NEGATIVE NEGATIVE 11/22/2024 8:50 PM AUTO GLASS TECHNICIAN [facility] Comment: VERY DILUTE URINE SPECIMENS MAY NOT CONTAIN ASSISTANT PROFESSOR OF PSYCHOLOGY LEVELS OF HCG. IF IS STILL SUSPECTED, A SERUM HCG TEST IS RECOMMENDED. URINE SPECIMEN FROM [facility] / Unknown 11/22/2024 8:33 PM AUTO GLASS TECHNICIAN us Nico Enriquez MD URINE ORDERABLES Final Res ult [facility] [address] [place] [address], from Last 3 Months Insurance [facility] Advance Directives * Full Code (Latest Code Status on File) Date Activated Date Inactivated Comments 02/03/2023 8:44 PM 02/06/2023 5:26 PM Care Teams Diesel Engine Fitter Relationship Specialty Start Date End Date Magalie Jay MD [address] [place] [address] PCP - General FAMILY PRACTICE 01/30/23
--- OUTSIDE RECORDS SUMMARY | 2025-02-13 13:38 | XMS_ITS | Encounter Summary ---
Author Organization [facility] Address 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 Topic: CPA Information Request - Paperwork Requests >> Jan 10, 2025 1:02 PM Ivon Kerns wrote: Caller Name: Mary Carmen Contreras Callback Number: There are no phone numbers on file. Call Notes (not required): bad migraine and panic attacks Caller is requesting: Work/School Absence Letter Has the patient been seen for this in the last 3 months? 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 Paperwork Due Date: temo pt was sent home from work due to panic attacks so she doesn't get In trouble because she's being sent home the note needs to show that she does have panic attacks EKEEPER CAREGIVER documented in this encounter Plan of Treatment Upcoming Encounters Date Type Department Care Team (Late st Contact Info) Description 06/13/2025 2:20 PM CDT Office Visit [address] [address] Chaim Sorto MD [address] [place] [phone] 11/01/2025 11:00 AM HOUSEKEEPER CAREGIVER Office Visit [address] [place] [address] Chaim Sorto MD [address] [place] [phone] documented as of this encounter Visit Diagnoses Not on filedocumented in this encounter Care Teams Storeroom Attendant Relationship Specialty Start Date End Date Chaim Sorto MD PCP - General 10/24/09 documented as of this encounter
--- OUTSIDE RECORDS SUMMARY | 2025-02-13 13:38 | XMS_ITS | Encounter Summary ---
Author Organization [facility] Address [address] [place] [address] Care Team Providers Care Industrial Controller Name Role Phone Chaim Sorto MD Primary Care Provider [phone] Reason for Visit * Reason Comments Clinical Consult Before Scheduling Encounter Details Date Type Department Care Team (Late st Contact Info) Description 01/09/2025 Telephone [facility] Primary Care [address] [place] [address] Chaim Sorto MD [address] [facility] [address] [place] [address] Clinical Consult Before Scheduling Social [...] on file Legal Sex Female 5:49 AM OUTREACH DIRECTOR Gender Identity Not on file Sexual Orientation Not on file documented as of this encounter Miscellaneous Notes * Telephone Encounter - Shobha Bustamante LPN - 01/09/2025 2:58 PM CST 01/09/2025 2:58 PM Returned call. No answer. Left voice mail/message to return our call. If patient/caregiver calls back, contact center please inform pt to respond via [employer] to providers response. Shobha DAVID EACH DIRECTOR * Telephone Encounter - Shobha Bustamante LPN - 01/09/2025 2:37 PM CST 01/09/2025 2:37 PM Returned call and spoke with patient. Discussed that Nurtec is still not done with PA process pt demanding something be sent in for migraines today and she will not wait any longer. Pt is not taking Nortriptyline at this time. Shobha DAVID EACH DIRECTOR * Telephone Encounter - Shobha Bustamante LPN - 01/09/2025 2:36 PM CST Call disconnected upon transfer from call center. EACH DIRECTOR * Telephone Encounter - Nadine Dugan - 01/09/2025 2:36 PM CST Copied from [facility] #[id number]. Topic: Symptomatic Care >> Jan 09, 2025 2:33 PM Nadine Kerns wrote: Caller has new symptoms and is seeking care. Age Range/Symptom: Adult: 18+ - Headache or Migraine Is your headache sudden onset and severe? Yes Caller Name: Mary Carmen Contreras Callback Number: [phone] Call Notes: having a migraine on set severe Transferred to [facility] Juan answered call. EACH DIRECTOR documented in this encounter Plan of Treatment Upcoming Encounters Date Type Department Care Team (Late st Contact Info) Description 06/13/2025 2:20 PM CDT Office Visit [facility] Primary Care [address] [place] [address] Chaim Sorto MD [address] [place] [address] [address] [place] [phone] 11/01/2025 11:00 AM OUTREACH DIRECTOR Office Visit [facility] Care [address] [place] [address] Chaim Sorto MD [address] [place] [address] [address] [place] [phone] documented as of this encounter Visit Diagnoses Not on filedocumented in this encounter Care Teams Industrial Controller Relationship Specialty Start Date End Date Chaim Sorto MD PCP - General 10/24/09 documented as of this encounter
--- OUTSIDE RECORDS SUMMARY | 2025-02-13 13:38 | XMS_ITS | Encounter Summary ---
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 Gender Identity Not on file Sexual Orientation Not on file documented as of this encounter Plan of Treatment Upcoming Encounters Date Type Department Care Team (Late st Contact Info) Description 06/13/2025 2:20 [place] [address] Chaim Sorto MD [address] [place], [place] [id number] 11/01/2025 11:00 AM SODA FOUNTAIN [place] [address] Chaim Sorto MD [address] [place] [address] documented as of this encounter Visit Diagnoses Not on filedocumented in this encounter Additional Health Concerns Infection Onset Date Last Indicated Resolved Time R/O GI Pathogen 10/12/2024 10/12/2024 10/13/2024 1 :30 PM SODA FOUNTAIN MANAGER documented as of this encounter Care Teams Supervisor Screen Making Relationship Specialty Start Date End Date Chaim Sorto MD PCP - General 10/24/09 documented as of this encounter
--- OUTSIDE RECORDS SUMMARY | 2025-02-13 13:38 | XMS_ITS | Encounter Summary ---
Author Organization [facility] Address [address] [place] [address] Care Team Providers Care Stove Mechanic Name Role Phone Chaim Sorto MD Primary Care Provider [phone] Reason for Visit * Reason Comments Clinical Consult Before Scheduling Encounter Details Date Type Department Care Team (Late st Contact Info) Description 10/11/2024 Telephone [facility] Primary Care [address] [place] [address] Chaim Sorto MD [address] [facility] [address] [place] [address] Clinical Consult Before Scheduling Social [...] on file Legal Sex Female 5:49 AM DATA MODELING ARCHITECT Gender Identity Not on file Sexual Orientation [...] line disconnected. MMM sent with appt details. MODELING ARCHITECT MODELING ARCHITECT * Telephone Encounter - Mikala Whitaker - 10/11/2024 8:35 AM DATA MODELING ARCHITECT Copied from [facility] #[id number]. Topic: Symptomatic Care >> Oct 11, 2024 [...] line and no answer, message routed to reform. MODELING ARCHITECT documented in this encounter Plan of Treatment Upcoming Encounters Date Type Department Care Team (Late st Contact Info) Description 06/13/2025 2:20 PM CDT Office Visit [address] [place] [address] Chaim Sorto MD [address] [place] [address] [address] [place] [address] 11/01/2025 11:00 AM DATA MODELING ARCHITECT Office Visit [address] [place] [address] Chaim Sorto MD [address] [place] [address] [address] [place] [address] documented as of this encounter Visit Diagnoses Not on filedocumented in this encounter Additional Health Concerns Infection Onset Date Last Indicated Resolved Time R/O GI Pathogen 10/12/2024 10/12/2024 10/13/2024 1 :30 PM DATA MODELING ARCHITECT documented as of this encounter Care Teams Stove Mechanic Relationship Specialty Start Date End Date Chaim Sorto MD PCP - General 10/24/09 documented as of this encounter
--- OUTSIDE RECORDS SUMMARY | 2025-02-13 13:38 | XMS_ITS | Clinical Summary ---
Author Organization [facility] Address [address] [place] [address] Phone Care Team Providers Care Hospital Carrier Name Role Phone Chaim Sorto MD Primary Care Provider [phone] Allergies Active Allergy Reactions Criticality Noted Date [...] Comments Blood Pressure 128/69 11/29/2020 3:30 PM COATING SUPERVISOR Pulse 90 11/29/2020 3:30 PM COATING SUPERVISOR Temperature 36.4 C (97.6 F) 11/29/2020 11:20 AM COATING SUPERVISOR Respiratory Rate 18 11/29/2020 3:30 PM COATING SUPERVISOR Oxygen Saturation 98% 11/29/2020 3:30 PM COATING SUPERVISOR Inhaled Oxygen Concentration - - Weight 56.7 kg (125 lb) 11/29/2020 11:20 AM COATING SUPERVISOR Height 167.6 cm (5' 6 ) 11/29/2020 11:20 AM COATING SUPERVISOR Body Mass Index 20.18 11/29/2020 11:20 AM COATING SUPERVISOR Plan of Treatment Health Maintenance Due Date [...] age to complete this topic Care Teams Hospital Carrier Relationship Specialty Start Date End Date Chaim Sorto MD [address] [place] [address] PCP - General 08/31/16
--- OUTSIDE RECORDS SUMMARY | 2025-02-13 13:38 | XMS_ITS | Clinical Summary ---
Author Organization [facility] Address [address] [place] [address] Care Team Providers Care Kit Planner Name Role Phone Chaim Sorto MD Primary Care Provider [phone] Allergies Active Allergy Reactions Criticality Noted Date [...] taking.Reported on 02/06/2025 naloxone (NARCAN) 4 mg/spray [place], Non-Aerosol EMERGENCY USE ONLY: Administer 1 spray [...] Description 02/06/2025 10:40 AM CDT Office Visit [facility] Primary Care [address] [place] [address] Chaim Sorto MD Colitis (Primary Dx); Migraine without status migrainosus, not intractable, unspecified migraine type; Other insomnia; Encounter for routine adult health examination with abnormal findings 01/31/2025 External Device Data STL ABSTRACTION Provider, Abstract 01/31/2025 External Device Data STL ABSTRACTION Provider, Abstract 01/25/2025 External Device Data STL ABSTRACTION Provider, Abstract 01/24/2025 External Device Data STL ABSTRACTION Provider, Abstract 01/18/2025 Abstract [facility] [address] [place] [address] Chaim Sorto MD 01/13/[address] [place] [address] Chaim Sorto MD Referral 01/10/2025 Patient Outreach [address] [place] [address] Noel Cantu. [facility] Care 01/10/2025 Orders Only [address] [place] [address] Maria Isabel Lan PA Anxiety state (Primary Dx) 01/10/[address] [place] [address] Chaim Sorto MD Question 01/09/2025 Orders Only [address] [place] [address] Maria Isabel Lan PA Migraine without status migrainosus, not intractable, unspecified migraine type (Primary Dx) 01/09/2025 Telephone [place] [address] [place] [address] Chaim Sorto MD Clinical Consult Before Scheduling 01/09/2025 [place] [address] [place] [address] Chaim Sorto MD Medication Assistance; Medication Assistance 01/02/2025 1:00 PM SIGN LETTERER Video Visit [address], [place] [address] Maria Isabel Lan PA Migraine without status migrainosus, not intractable, unspecified migraine type (Primary Dx); Anxiety state; Vertigo; Encounter for screening for cervical cancer 12/29/[address], [place] [address] Chaim Sorto MD Clinical Consult Before Scheduling 12/29/[address] [address] Chaim Sorto MD 12/27/[address] [address] Chaim Sorto MD Clinical Consult Before Scheduling 12/20/2024 External Device Data STL ABSTRACTION Provider, Abstract 12/15/2024 External Device Data STL ABSTRACTION Provider, Abstract 12/09/[address] [address] Chaim Sorto MD Clinical Consult Before Scheduling; Paperwork 12/08/2024 10:53 AM SIGN LETTERER - 12/08/2024 11:59 PM SIGN LETTERER Hospital Encounter [facility] Supp S[facility] Blood Flow [address] [place] [address] Maria Isabel Lan PA Discharge Disposition: Home or Self Care 12/08/2024 Results Follow-Up [address], [place] [address] Maria Isabel Lan PA US VENOUS DOPPLER LEG LEFT 12/08/[address], [place] [address] Chaim Sorto MD Needs Orders Written 12/06/2024 3:30 PM SIGN LETTERER Video Visit [address] [place] [address] Maria Isabel Lan PA Screening for cervical cancer (Primary Dx); COVID-19 virus detected; Acute cough; Vertigo; Swelling of calf 12/06/2024 External Device Data STL ABSTRACTION Provider, Abstract 12/06/2024 External Device Data STL ABSTRACTION Provider, Abstract 12/05/[address] [place] [address] Chaim Sorto MD Advice Only 11/30/[address] [place] [address] Chaim Sorto MD Medication Assistance 11/24/[address] [place] [address] Chaim Sorto MD Hospital Follow Up 11/15/2024 [...] on file Legal Sex Female 5:49 AM SIGN LETTERER Gender Identity Not on file Sexual Orientation Not on file Last Filed Vital Signs Vital Sign Reading Time Taken Comments Blood Pressure 110/68 02/06/2025 10:12 AM CDT Pulse 81 02/06/2025 10:12 AM CDT Temperature 36.2 C (97.2 F) 10/17/2024 4:47 AM SIGN LETTERER Respiratory Rate 20 10/17/2024 4:47 AM SIGN LETTERER Oxygen Saturation 99% 02/06/2025 10: 12 AM [...] Description 06/13/2025 2:20 PM CDT Office Visit [address] [place] [address] Chaim Sorto MD [address] [place] [address] [address] [place] [address] 11/01/2025 11:00 AM SIGN LETTERER Office Visit [address] [place] [address] Chaim Sorto MD [address] [place] [address] [address] [place] [address] Health Maintenance Due Date Last Done Comments [...] DOPPLER LEG LEFT Stat 12/08/2024 11:41 AM SIGN LETTERER Swelling of calf from Last 3 Months Results * US VENOUS DOPPLER LEG LEFT (12/08/2024 11:41 AM SIGN LETTERER) Anatomical Region Laterality Modality Lower Extremity Ultrasound 12/08/2024 12:0 2 PM SIGN LETTERER Narrative 12/08/2024 12:33 PM SIGN LETTERER [address] [address] [email or web address] Venous Exam Limited Lower Extremity Duplex Patient: Mary Carmen Contreras Study ID: [id number] Gender: F : 1990 Age: 34 Race: CAU Height Study Date: 12/08/2024 Weight: Access. #: [id number] *Referring Physician:* Maria Isabel Lan Raegan *Ordering Physician:* Maria Isabel Lan *Day Care Center Director:* Kezia Sultana History: Swelling of the left lower extremity. PMH: No prior study is available for comparison. Study data: [facility] Study status: STAT. Procedure: A vascular evaluation [...] mm Prepared and Electronically Authenticated Júnior Soto [id number] Procedure Note Júnior Soto MD - 12/08/2024 [place] [address] [address] [facility] [place] [address] [email or web address] Venous Exam Limited Lower Extremity Duplex Patient: Mary Carmen Contreras Study ID: [id number] Gender: F : 1990 Age: 34 Race: CAU Height Study Date: 12/08/2024 Weight: Access. #: [id number] *Referring Physician:* Maria Isabel Lan Raegan *Ordering Physician:* Maria Isabel Lan *Day Care Center Director:Kezia Mcdaniels History: Swelling of the left lower [...] mm Prepared and Electronically Authenticated Júnior Soto [id number] Maria Isabel MURPHY ORDERABLES Final Re sult from Last 3 Months Insurance RX [place] Commercial RX EXPRESS SCRIPTS Express RX NAGY PLANS (INTERNAL) [facility] Internal Plans RX [facility] Commercial RX [facility] Commercial Advance Directives For more information, please contact: [phone] * Full Code (Latest Code Status on [...] 9:32 AM 12/11/2019 4:13 PM Care Teams Kit Planner Relationship Specialty Start Date End Date Chaim Sorto MD PCP - General 10/24/09
--- OUTSIDE RECORDS SUMMARY | 2025-02-13 13:38 | XMS_ITS | Encounter Summary ---
Author Organization [facility] Address [address] [place] [address] Care Team Providers Care Public Speaking Coach Name Role Phone Chaim Sorto MD Primary Care Provider [phone] Reason for Visit * Reason Comments Patient Communication Patient Communication Encounter Details Date Type Department Care Team (Late st Contact Info) Description 08/03/2024 Telephone [facility] Primary Care [address] [place] [address] Chaim Sorto MD [address] [facility] [address] [place] [address] Patient Communication; Patient Communication Social [...] on file Legal Sex Female 5:49 AM GUEST REQUEST RUNNER Gender Identity Not on file Sexual Orientation [...] - 08/03/2024 2:42 PM CDT Copied from [facility] #[id number]. Topic: CPA Information Request - Patient Call [...] - 08/03/2024 12:11 PM CDT Copied from [facility] #[id number]. Topic: Patient or Caregiver Communication Request >> Aug 03, 2024 12:09 PM Alisha Price wrote: Patient or Caregiver requesting advice Caller: Mary Carmen Contreras Patient/Caregiver Callback Number: Telephone Information: Call Notes: Patient called back regarding rash and the most recent patient message communicated from haku asking the patient to upload a photo of her rash was relayed. Patient will upload a photo. documented in this encounter Plan of Treatment Upcoming Encounters Date Type Department Care Team (Late st Contact Info) Description 06/13/2025 2:20 PM CDT Office Visit [address] [place] [address] Chaim Sorto MD [address] [place] [address] [address] [place] [address] 11/01/2025 11:00 AM GUEST REQUEST RUNNER Office Visit [address] [place] [address] Chaim Sorto MD [address] [place] [address] [address] [place] [address] documented as of this encounter Visit Diagnoses Not on filedocumented in this encounter Additional Health Concerns Infection Onset Date Last Indicated Resolved Time R/O GI Pathogen 10/12/2024 10/12/2024 10/13/2024 1 :30 PM GUEST REQUEST RUNNER documented as of this encounter Care Teams Public Speaking Coach Relationship Specialty Start Date End Date Chaim Sorto MD PCP - General 10/24/09 documented as of this encounter
--- OUTSIDE RECORDS SUMMARY | 2025-02-13 13:38 | XMS_ITS | Continuity of Care Document ---
Author Organization [facility] Address [address] [place] [address] [address] [place] [address] Phone Care Team Providers Care Customs Director Name Role Phone Michael OD OD, Malia [...] Date Provider Providers Copied on Encounter Ophthalmology [facility], [address] [place] [address], [id number], tel:[phone] OPH CONSULT NELDA SANTIAGO No Information 0 Derheimer OD Malia. [address], [address], [place], [place], [id number], [place]. tel:[phone] Referring Provider: Lala Bueno, [address], [place], [address]. tel:[phone] [facility], [address] [place] [address], [id number], tel:[phone] OPH CONSULT NELDA SANTIAGO [employer] 4 Nick Reeves. [address], [place], [address], [place]. tel:[phone] Referring Provider: Lala Bueno, [address], [place], [address]. tel:[phone] [facility], [address] [facility] [address], [place], [place], [id number], tel:[phone] OPH CONSULT NELDA SANTIAGO No Information 2 Nick Reeves. [address], [place], [address], [place]. tel:[phone] Referring Provider: Lala Bueno, [address], [place], [address]. tel:[phone] Family History Family Member Type Diagnosis Age At Onset No Information Payers Payer name Insurance type Covered libertarian ID Authoriza tion(s) No Information Social History [...]
--- OUTSIDE RECORDS SUMMARY | 2025-02-13 13:38 | XMS_ITS | Encounter Summary ---
Author Organization [facility] Address [address] [place] [address] Care Team Providers Care Msws Name Role Phone Chaim Sorto MD Primary Care Provider [phone] Reason for Visit * Reason Onset Date Comments Hospitla Follow Up 12/18/2023 Encounter Details Date Type Department Care Team (Late Contact Info) Description 12/18/[address], [place] [address] Chaim Sorto MD [address] [place] [address] Hospitla Follow Up Social History Tobacco Use Types Packs/Day Years Used Date Smoking Tobacco: Every Day Cigarettes 0.3 1 Smokeless Tobacco: Never Alcohol Use Standard Drinks/Week Comments No 0 (1 standard drink = 0.6 oz pur e alcohol) socially Comments No Sex and Gender Information Value Date Recorded Sex Assigned at Not on file Legal Sex Female 5:49 AM REWORK OPERATOR Gender Identity Not on file Sexual Orientation Not on file documented as of this encounter Plan of Treatment Upcoming Encounters Date Type Department Care Team (Late Contact Info) Description 06/13/2025 2:20 PM CDT Office Visit [address] [place] [address] Chaim Sorto MD [address] [place] [address] [address] [place] [address] 11/01/2025 11:00 AM REWORK OPERATOR Office Visit [address] [place] [address] Chaim Sorto MD [address] [place] [address] [address] [place] [address] documented as of this encounter Visit Diagnoses Not on filedocumented in this encounter Additional Health Concerns Infection Onset Date Last Indicated Resolved Time R/O GI Pathogen 10/12/2024 10/12/2024 10/13/2024 1 :30 PM REWORK OPERATOR documented as of this encounter Care Teams Msws Relationship Specialty Start Date End Date Chaim Sorto MD PCP - General 10/24/09 documented as of this encounter
--- OUTSIDE RECORDS SUMMARY | 2025-02-13 13:38 | XMS_ITS | Encounter Summary ---
Author Organization [facility] Address [address] [place] [address] Care Team Providers Care Dray Driver Name Role Phone Chaim Sorto MD Primary Care Provider [phone] Reason for Visit * Reason Comments Clinical Consult Before Scheduling Encounter Details Date Type Department Care Team (Late st Contact Info) Description 08/05/[address] [facility] Primary Care [address] [place] [address] Chaim Sorto MD 7 [facility] [address] [place] [address] Clinical Consult Before Scheduling Social [...] on file Legal Sex Female 5:49 AM FURNACE PUNCHER Gender Identity Not on file Sexual Orientation Not on file documented as of this encounter Miscellaneous Notes * Telephone Encounter - Carlene Taylor - 08/05/2024 12:51 PM CDT Copied from [facility] #[id number]. Topic: Symptomatic Care >> Aug 05, 2024 12:45 PM Carlene rPice wrote: Caller has new symptoms and is seeking care. Age Range/Symptom: Adult: 18+ - Bleeding Now - Actively Bleeding Caller Name: Mary Carmen Contreras Callback Number:Patient Contact Information: [phone] Call Notes: Mary Carmen Contreras because she is camping ,still having blood in stool, nausea been to the ER 3 times for diarrhea vomiting documented in this encounter Plan of Treatment Upcoming Encounters Date Type Department Care Team (Late st Contact Info) Description 06/13/2025 2:20 PM CDT Office Visit [address] [place] [address] Chaim Sorto MD [address] [place] [address] [address] [place] [address] 11/01/2025 11:00 AM FURNACE PUNCHER Office Visit [address] [place] [address] Chaim Sorto MD [address] [place] [address] documented as of this encounter Visit Diagnoses Not on filedocumented in this encounter Additional Health Concerns Infection Onset Date Last Indicated Resolved Time R/O GI Pathogen 10/12/2024 10/12/2024 10/13/2024 1 :30 PM FURNACE PUNCHER documented as of this encounter Care Teams Dray Driver Relationship Specialty Start Date End Date Chaim Sorto MD PCP - General 10/24/09 documented as of this encounter
--- OUTSIDE RECORDS SUMMARY | 2025-02-13 13:38 | XMS_ITS | Encounter Summary ---
Author Organization [facility] Address [address] [place] [address] Care Team Providers Care Store Clerk Name Role Phone Chaim Sorto MD Primary Care Provider [phone] Reason for Visit * Reason Comments Clinical Consult Before Scheduling Patient Communication Encounter Details Date Type Department Care Team (Late st Contact Info) Description 07/26/2024 Telephone [facility] Primary Care [address] [place] [address] Chaim Sorto MD [address] [place] [address] [address] [place] [address] Clinical Consult Before Scheduling; Patient [...] on file Legal Sex Female 5:49 AM RADIOLOGICAL METALLURGIST Gender Identity Not on file Sexual Orientation Not on file documented as of this encounter Miscellaneous Notes * Telephone Encounter - Yessi Tejada - 07/26/2024 12:27 PM CDT Copied from [facility] #[id number]. Topic: CPA Information Request >> Jul 26, 2024 12:25 PM Yessi Lopez wrote: Attempted back line 3x's, no answer. Patient is at work and might not be able to answer, can leave VM. * Telephone Encounter - Yessi Tejada - 07/26/2024 12:22 PM CDT Copied from [facility] #[id number]. Topic: CPA Information Request - Patient Call [...] - 07/26/2024 12:17 PM CDT Copied from [facility] #[id number]. Topic: Symptomatic Care >> Jul 26, 2024 12:12 PM Rosendo Price wrote: Caller has new symptoms and is seeking care. Age Range/Symptom: Adult: 18+ - Bleeding Now - Actively Bleeding Caller Name: Mary Carmen Contreras Callback Number: [phone] Call Notes: Mary Carmen called in regarding [...] Description 06/13/2025 2:20 PM CDT Office Visit [address] [place] [address] Chaim Sorto MD [address] [place] [address] [address] [place] [address] 11/01/2025 11:00 AM RADIOLOGICAL METALLURGIST Office Visit [address] [place] [address] Chaim Sorto MD [address] [place] [address] [address] [place] [address] documented as of this encounter Visit Diagnoses Not on filedocumented in this encounter Additional Health Concerns Infection Onset Date Last Indicated Resolved Time R/O GI Pathogen 10/12/2024 10/12/2024 10/13/2024 1 :30 PM RADIOLOGICAL METALLURGIST documented as of this encounter Care Teams Store Clerk Relationship Specialty Start Date End Date Chaim Sorto MD PCP - General 10/24/09 documented as of this encounter
--- OUTSIDE RECORDS SUMMARY | 2025-02-13 13:38 | XMS_ITS | Encounter Summary ---
Author Organization [facility] Address [address] [place] [address] Care Team Providers Care Kiln Transfer Operator Name Role Phone Chaim Sorto MD Primary Care Provider [phone] Reason for Visit * Reason Onset Date Comments Medication Refill 07/02/2022 Encounter Details Date Type Department Care Team (Late st Contact Info) Description 07/02/2022 Telephone [facility] Primary Care [address] [place] [address] Chaim Sorto MD [address] [place] [address] [address] [place] [address] Medication Refill Social History Tobacco Use Types Packs/Day Years Used Date Smoking Tobacco: Every Day Cigarettes 0.3 1 Smokeless Tobacco: Never Alcohol Use Standard Drinks/Week Comments No 0 (1 standard drink = 0.6 oz pur e alcohol) socially Comments No Sex and Gender Information Value Date Recorded Sex Assigned at Not on file Legal Sex Female 5:49 AM MOLDED GOODS EMBOSSING PRESS OPERATOR Gender Identity Not on file Sexual [...] it approved right away. Call back Number: [phone] (home) documented in this encounter Plan of Treatment Upcoming Encounters Date Type Department Care Team (Late st Contact Info) Description 06/13/2025 2:20 PM CDT Office Visit [address] [place] [address] Chaim Sorto MD [address] [place] [address] [address] [place] [phone] 11/01/2025 11:00 AM MOLDED GOODS EMBOSSING PRESS OPERATOR Office Visit [address] [place] [address] Chaim Sorto MD [address] [place] [id number] documented as of this encounter Visit Diagnoses Not on filedocumented in this encounter Additional Health Concerns Infection Onset Date Last Indicated Resolved Time R/O GI Pathogen 10/12/2024 10/12/2024 10/13/2024 1 :30 PM MOLDED GOODS EMBOSSING PRESS OPERATOR documented as of this encounter Care Teams Kiln Transfer Operator Relationship Specialty Start Date End Date Chaim Sorto MD PCP - General 10/24/09 documented as of this encounter
--- OUTSIDE RECORDS SUMMARY | 2025-02-13 13:38 | XMS_ITS | Encounter Summary ---
Author Organization [facility] Address [address] [place] [address] Care Team Providers Care Take Off Worker Name Role Phone Chaim Sorto MD Primary Care Provider Encounter Details Date Type Department Care Team (Late Contact Info) Description 12/29/[address] [place] [address] Chaim Sorto MD [address] [place] [address] [address] [place] [address] Social History Tobacco Use Types Packs/Day Years Used Date Smoking Tobacco: Every Day Cigarettes 0.3 1 Smokeless Tobacco: Never Alcohol Use Standard Drinks/Week Comments No 0 (1 standard drink = 0.6 oz pur e alcohol) socially Comments No Sex and Gender Information Value Date Recorded Sex Assigned at Not on file Legal Sex Female 5:49 AM MOBILE SALES ASSISTANT Gender Identity Not on file Sexual Orientation Not on file documented as of this encounter Plan of Treatment Upcoming Encounters Date Type Department Care Team (Late Contact Info) Description 06/13/2025 2:20 PM CDT Office Visit [address] [place] [address] Chaim Sorto MD [address] [place] [address] [address] [place] [address] 11/01/2025 11:00 AM MOBILE SALES ASSISTANT Office Visit [address] [place] [address] Chaim Sorto MD [address] [place] [phone] documented as of this encounter Visit Diagnoses Not on filedocumented in this encounter Additional Health Concerns Infection Onset Date Last Indicated Resolved Time R/O GI Pathogen 10/12/2024 10/12/2024 10/13/2024 1 :30 PM MOBILE SALES ASSISTANT documented as of this encounter Care Teams Take Off Worker Relationship Specialty Start Date End Date Chaim Sorto MD PCP - General 10/24/09 documented as of this encounter
--- OUTSIDE RECORDS SUMMARY | 2025-02-13 13:38 | XMS_ITS | Encounter Summary ---
Author Organization [facility] Address [address] [place] [address] Care Team Providers Care Machine Mover Name Role Phone Chaim Sorto MD Primary Care Provider [phone] Reason for Visit * Reason Comments Hospital Follow Up Encounter Details Date Type Department Care Team (Late st Contact Info) Description 11/24/2024 Telephone [facility] Primary Care [address] [place] [address] Chaim Sorto MD [address] [facility] [address] [place] [address] Hospital Follow Up Social History [...] on file Legal Sex Female 5:49 AM AUTO JOB ESTIMATOR Gender Identity Not on file Sexual Orientation Not on file documented as of this encounter Miscellaneous Notes * Telephone Encounter - Erendira Taylor LPN - 11/24/2024 12:19 PM AUTO JOB ESTIMATOR Telephoned pt to schedule an appt. LMTCB JOB ESTIMATOR * Telephone Encounter - Chaim Sorto MD - 11/24/2024 12:14 PM CST ?? She can make appt if needed JOB ESTIMATOR * Telephone Encounter - Erendira Taylor LPN - 11/24/2024 10:23 AM AUTO JOB ESTIMATOR Pt had MRI and X-ray at [facility] on 11/22/24. States she went to for second opinion more imaging. refused. JOB ESTIMATOR * Telephone Encounter - Chaim Sorto MD - 11/24/2024 9:55 AM CST ? She can go to to get x ray JOB ESTIMATOR * Telephone Encounter - Blaine Gill - 11/24/2024 8:11 AM CST Copied from [facility] #[id number]. Topic: Patient or Caregiver Communication Request >> Nov 24, 2024 8:09 AM Blaine Bueno wrote: Patient or Caregiver requesting that a message be sent to Care Team Caller: Mary Carmen Contreras Patient/Caregiver Callback Number: Call Notes: The patient was seen at [facility] for a fall on 11/22/24. She said that she fractured her nose, hurst her left shoulder, elbow and wrist. The patient would like to knowif she could just request a x-ray closer to her home. Please advise patient. PSA was not able to schedule an appointment within 5 days. JOB ESTIMATOR documented in this encounter Plan of Treatment Upcoming Encounters Date Type Department Care Team (Late st Contact Info) Description 06/13/2025 2:20 PM CDT Office Visit [address] [place] [address] Chaim Sorto MD [address] [place] [phone] 11/01/2025 11:00 AM AUTO JOB ESTIMATOR Office Visit [address] [place] [address] Chaim Sorto MD [address] [place] [phone] documented as of this encounter Visit Diagnoses Not on filedocumented in this encounter Care Teams Machine Mover Relationship Specialty Start Date End Date Chaim Sorto MD PCP - General 10/24/09 documented as of this encounter
--- OUTSIDE RECORDS SUMMARY | 2025-02-13 13:38 | XMS_ITS | Encounter Summary ---
Author Organization [facility] Address 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 [address] [place] [phone] Chaim Sorto MD [address] [place] [address] [place] [phone] 11/01/2025 11:00 AM SOUND PRINTER Office Visit [facility] [address] [place] [address] [address] [place] [address] Chaim Sorto MD [address] [place] [address] [place] [phone] documented as of this encounter Visit Diagnoses Not on filedocumented in this encounter Care Teams Relief Cook Relationship Specialty Start Date End Date Chaim Sorto MD PCP - General 10/24/09 documented as of this encounter
--- OUTSIDE RECORDS SUMMARY | 2025-02-13 13:38 | XMS_ITS | Clinical Summary ---
Author Organization [facility] Address [address] [place] [address] Care Team Providers Care Reverberatory Furnace Operator Name Role Phone Tip Srivastava MD Unavailable [phone] Onofre Garcia DO Unavailable Onofre Garcia DO Unavailable [phone] Chaim Sorto MD Primary Care Provider [phone] [facility],non-owned Affiliates and Associated Physician Practices is amultiple site organization consisting of ambulatory clinics and hospital sitesin [place], [place], [place] and [place]. This disclosure is being madepursuant to the Care Everywhere program and may not contain all information available regarding this patient. Last updated 18.[facility] Allergies Active Allergy Reactions Criticality Noted Date [...] fluticasone propionate (Flonase) 50 MCG/ACT nasal spray [place] 2 (two) sprays into each nostril once daily for 14 days 16 g 11/04/2024 Active rizatriptan, disintegrating, (Maxalt FOOD AND NUTRITION TEACHER) 5 MG tablet Take 1 (one) tablet [...] CDT Hospital Encounter [facility] [address] [place] [address] Elizabeth Bañuelos, KITCHEN FOOD ASSEMBLER-Ricki Zepeda, DO Darling, Michael Cardoza, Hospitalist Discharge Disposition: Home or Self Care 01/31/2025 5:00 PM CDT Office Visit [facility] [address] [phone] Provider1, [facility] Left lower quadrant abdominal pain (Primary Dx) 01/31/2025 Travel 01/18/2025 7:34 AM TRIMMING DEPARTMENT BLOCKER - 01/18/2025 9:47 AM TRIMMING DEPARTMENT BLOCKER Emergency ER at [address] [address] Desiree Grey MD RUQ pain; Coffee ground emesis; Nausea and vomiting, unspecified vomiting type Discharge Disposition: Home or Self Care 01/18/2025 Travel 01/13/2025 7:20 AM TRIMMING DEPARTMENT BLOCKER - 01/14/2025 12:54 PM TRIMMING DEPARTMENT BLOCKER Hospital Encounter [facility] [address] [place] [address] [place] Cui MD Foshee, Luke, DO Hospitalist Discharge Disposition: Home or Self Care 01/13/2025 Travel 11/29/2024 5:15 PM TRIMMING DEPARTMENT BLOCKER Office [facility] [address] [place] [phone] Encounter for removal of sutures (Primary Dx); [...] Recorded Patient Health Questionnaire-2 Score 0 01/31/2025 [facility] of Occupat ional Health - Occupational Stress [...] place to sleep or slept in a fci (including now)? No 12/03/2023 Housing Stability Vital Sign Answer Boom e Recorded In the last 12 months, was t here a time when you were not able to pay the mortgage or rent on time? No 02/01/2025 In the past 12 months, how m any times have you moved where you were living? 1 02/01/2025 At any time in the past 12 m [facility], were you homeless or living in a fci (including now)? No 02/01/2025 Sex and Gender [...] BLOOD TYPE VERIFICATION STAT 01/18/2025 8:28 AM TRIMMING DEPARTMENT BLOCKER CT ANGIO ABDOMEN PELVIS STAT 01/18/2025 8:17 AM TRIMMING DEPARTMENT BLOCKER RUQ pain Coffee ground emesis Nausea and vomiting, unspecified vomiting type TYPE + SCREEN PANEL STAT 01/18/2025 7 :46 AM TRIMMING DEPARTMENT BLOCKER PT-INR STAT 01/18/2025 7:46 AM TRIMMING DEPARTMENT BLOCKER LIPASE BLOOD STAT 01/18/2025 7:46 AM TRIMMING DEPARTMENT BLOCKER MAGNESIUM BLOOD STAT 01/18/2025 7:46 AM TRIMMING DEPARTMENT BLOCKER CBC W AUTO DIFFERENTIAL STAT 01/18/2025 7:46 AM TRIMMING DEPARTMENT BLOCKER COMPREHENSIVE METABOLIC PANEL STAT 01/18/2025 7:46 AM TRIMMING DEPARTMENT BLOCKER COMPREHENSIVE METABOLIC PANEL AM Draw 01/14/2025 4:40 AM TRIMMING DEPARTMENT BLOCKER CBC W/O DIFFERENTIAL AM Draw 01/14/2025 4:40 AM TRIMMING DEPARTMENT BLOCKER CT ABDOMEN PELVIS W CONTRAST STAT 01/13/2025 8:22 AM TRIMMING DEPARTMENT BLOCKER Abdominal pain, generalized LIPASE BLOOD STAT 01/13/2025 7:51 AM TRIMMING DEPARTMENT BLOCKER COMPREHENSIVE METABOLIC PANEL STAT 01/13/2025 7:51 AM TRIMMING DEPARTMENT BLOCKER CBC W AUTO DIFFERENTIAL STAT 01/13/2025 7:51 AM TRIMMING DEPARTMENT BLOCKER HCG BLOOD QUALITATIVE STAT 01/13/2025 7:51 AM TRIMMING DEPARTMENT BLOCKER SARS-COV-2 (COVID-19) FLU A/B RSV PCR RAPID STAT 01/13/2025 7:51 AM TRIMMING DEPARTMENT BLOCKER SARS-COV-2 (COVID-19) AG (AMB) POCT Routine 11/29/2024 3:05 PM TRIMMING DEPARTMENT BLOCKER COVID STREP A SCREEN - POINT OF CARE (AMB) [facility] Routine 11/29/2024 3:01 PM TRIMMING DEPARTMENT BLOCKER COVID from Last 3 Months Results * [...] Darling DO LAB - CHEMISTRY OR DERABLES [facility] [address] * (ABNORMAL) BASIC METABOLIC PANEL (CALCIUM TOTAL) (02/02/2025 3:56 AM CDT) Pathologist [facility] Glucose 95 70 - 125 mg/dL 02/02/2025 [...] - 10.2 mg/dL 02/02/2025 5:43 AM CDT [facility] Anion Gap 6 6 - 16 mmol/L 02/02/2025 5:43 AM CDT [facility] BUN 7.7(L) 9.8 - 20.1 mg/dL 02/02/2025 5:43 AM CDT [facility] Creatinine 0.73 0.57 - 1.11 mg/dL 02/02/2025 5:43 AM CDT [facility] eGFR >90 >90 mL/min/1.7 3m2 02/02/2025 5:43 AM CDT [facility] Comment:The GFR result was c alculated using the updated CKD-EPI Creatinine Equation (2020). Blood BLOOD SPECIMEN / Unknown Lab Venipuncture / Unknown 02/02/2025 3:56 AM CDT 02/02/2025 5:13 AM CDT Michael Darling DO LAB - CHEMISTRY OR DERABLES Performing Organization Address [facility]/ZIP Co de Phone Number [facility] [address] * (ABNORMAL) CBC W AUTO DIFFERENTIAL (02/02/2025 3:55 AM CDT) Only the most recent of5 resultswithin the time period is included. [facility] WBC 4.1 4.0 - 10.7 x10E9/L [...] - 0.13 x10E9/L 02/02/2025 5:18 AM CDT [facility] Blood BLOOD SPECIMEN / Unknown Lab Venipuncture / Unknown 02/02/2025 3:55 AM CDT 02/02/2025 5:13 AM CDT Michael Sony Darling DO LAB - HEMATOLOGY O RDERABLES Performing Organization Address City/State/[facility] Co de Phone Number [facility] [address] * (ABNORMAL) COMPREHENSIVE METABOLIC PANEL (02/01/2025 4:00 AM CDT) Only the most recent of5 resultswithin the time period is included. [facility] Glucose 86 70 - 125 mg/dL 02/01/2025 4:59 AM CDT [facility] Sodium 138 136 - 145 mmol/L 02/01/2025 4:59 AM CDT [facility] Potassium 3.6 3.4 - 5.1 mmol/L 02/01/2025 4:59 AM CDT [facility] Chloride 106 98 - 107 mmol/L 02/01/2025 4:59 AM CDT [facility] CO2 24 22 - 29 mmol/L 02/01/2025 4:59 AM CDT [facility] Calcium 8.88 8.4 - 10.2 mg/dL 02/01/2025 4:59 AM CDT [facility] Anion Gap 8 6 - 16 mmol/L 02/01/2025 4:59 AM CDT [facility] BUN 8.0(L) 9.8 - 20.1 mg/dL 02/01/2025 4:59 AM CDT [facility] Creatinine 0.69 0.57 - 1.11 mg/dL [...] Lott DO LAB - CHEMISTRY LANA SHERMAN [facility] Organization Address City/State/[facility] Co de Phone Number [facility] [address] * CT ABDOMEN PELVIS W CONTRAST [...] MD on 02/01/2025 6:08 AM Elizabeth Bañuelos KITCHEN FOOD ASSEMBLER-CONTINUOUS WAVE OPERATOR CT ORDERABLES * HCG URINE QUALITATIVE - POCT (IP) BEAKER - ILL (01/31/2025 6:11 PM CDT) Pathologist [facility] HCG Qual Urine Negative Negative [facility] POCT TESTING Lot # [id number] [facility] Expiration Date 05/04/2026 [facility] PO[facility] TEST[facility] QC Verified Yes Yes [facility] POC T TESTING Urine URINE / Unknown 01/31/2025 6 :11 PM CDT Elizabeth [facility] LAB - POINT O F CARE ORDERABLES Performing Organization Address [facility]/ZIP Co de Phone Number [facility] POCT TESTING [address] * LIPASE BLOOD (01/31/2025 6:11 PM CDT) Only the most recent of3 resultswithin the time period is included. Pathologist [facility] Lipase 17 8 - 78 U/L 01/31/2025 6:46 PM CDT [facility] Blood BLOOD SPECIMEN / Unknown Venipuncture / Unknown 01/31/2025 6:11 PM CDT 01/31/2025 6:27 PM CDT Elizabeth [facility] LAB - PICCOLO MECHANIC RY ORDERABLES Performing Organization Address [facility]/ZIP Co de Phone Number [facility] [address] * (ABNORMAL) URINALYSIS REFLEX TO MICROSCOPIC NO CULTURE (01/31/2025 6:01 PM CDT) Pathologist [facility] Color UA Yellow Straw, Yellow 01/31/2025 6:43 PM CDT [facility] Clarity UA Cloudy(A) Clear 01/31/2025 6:43 PM CDT [facility] Glucose UA Negative Negative 01/31/2025 6:43 PM CDT [facility] Bilirubin UA Negative Negative 01/31/2025 6:43 PM CDT [facility] Ketone UA Negative Negative 01/31/2025 6:43 PM CDT [facility] Specific [place] UA 1.021 1.005 - 1.030 01/31/2025 6:43 [...] - 01/31/2025 6:43 PM CDT Elizabeth Bañuelos APRN-CONTINUOUS WAVE OPERATOR LAB - URINALY SIS ORDERABLES [facility] [address] * (ABNORMAL) URINE MICROSCOPIC ONLY (01/31/2025 [...] PM CDT 01/31/2025 6:26 PM CDT Narrative [facility] - 01/31/2025 6:43 PM CDT Elizabeth Bañuelos APRN-CONTINUOUS WAVE OPERATOR LAB - URINALY SIS ORDERABLES [facility] 1 [place], [place] [id number] [place] [address] * BLOOD TYPE VERIFICATION (01/18/2025 8:28 AM TRIMMING DEPARTMENT BLOCKER) ABO Rh A POS 01/18/2025 9:2 3 AM TRIMMING DEPARTMENT BLOCKER [facility] Blood Bank BLOOD SPECIMEN / Unknown Venipuncture / Unknown 01/18/2025 8:28 AM TRIMMING DEPARTMENT BLOCKER 01/18/2025 8:34 AM TRIMMING DEPARTMENT BLOCKER Desiree Grey MD LAB - BLOOD BANK ORD ERABLES [facility] [address] * CT ANGIO ABDOMEN PELVIS [id number] (01/18/2025 8:17 AM TRIMMING DEPARTMENT BLOCKER) Anatomical Region Laterality Modality Abdomen, Pelvis Computed Tomogra phy 01/18/2025 8:59 AM TRIMMING DEPARTMENT BLOCKER Impressions 01/18/2025 9:19 AM TRIMMING DEPARTMENT BLOCKER IMPRESSION: 1. No evidence of active GI [...] 01/18/2025 9:19 AM Narrative 01/18/2025 9:19 AM TRIMMING DEPARTMENT BLOCKER PROCEDURE: CT ANGIO ABDOMEN PELVIS INDICATION: R10.11: [...] TYPE + SCREEN PANEL (01/18/2025 7:46 AM TRIMMING DEPARTMENT BLOCKER) ABO Rh A POS 01/18/2025 9:23 AM TRIMMING DEPARTMENT BLOCKER [facility] Antibody Screen NEG 9:23 AM TRIMMING DEPARTMENT BLOCKER [facility] Blood Bank BLOOD SPECIMEN / Unknown Venipuncture / Unknown 01/18/2025 7:46 AM TRIMMING DEPARTMENT BLOCKER 01/18/2025 7:50 AM TRIMMING DEPARTMENT BLOCKER Desiree Grey MD LAB - BLOOD BANK ORD ERABLES Performing Organization Address [facility]/ZIP Co de Phone Number [facility] [address] * (ABNORMAL) PT-INR (01/18/2025 7:46 AM TRIMMING DEPARTMENT BLOCKER) [facility] PT 13.1 11.3 - 14.8 sec 01/18/2025 8:09 AM TRIMMING DEPARTMENT BLOCKER [facility] INR 1.00(L) 2 - 3 01/18/2025 8:09 AM TRIMMING DEPARTMENT BLOCKER [facility] Blood BLOOD SPECIMEN / Unknown Venipuncture / Unknown 01/18/2025 7:46 AM TRIMMING DEPARTMENT BLOCKER 01/18/2025 7:50 AM TRIMMING DEPARTMENT BLOCKER Narrative [facility] - 01/18/2025 8:09 AM [facility] Recommended therapeutic INR ranges for Oral Anticoagulant Therapy: 2.0-3.0 For prevention of Thrombosis or Embolism and treatment of Venous Thrombosis. 2.5- 3.5 for prevention of Recurrent Embolism or treatment of patients with Mechanical Prosthetic Heart Valves. Desiree Grey MD LAB - COAGULATION OR DERABLES Performing Organization Address [facility]/ZIP Co de Phone Number [facility] [address] [place] [address] * MAGNESIUM BLOOD (01/18/2025 7:46 AM TRIMMING DEPARTMENT BLOCKER) [facility] Magnesium 1.9 1.6 - 2.6 mg/dL 01/18/2025 8:13 AM TRIMMING DEPARTMENT BLOCKER [facility] Blood BLOOD SPECIMEN / Unknown Venipuncture / Unknown 01/18/2025 7:46 AM TRIMMING DEPARTMENT BLOCKER 01/18/2025 7:50 AM TRIMMING DEPARTMENT BLOCKER Desiree Grey MD LAB - CHEMISTRY ORDE RABMAGNOLIA Performing Organization Address [facility] Co de Phone Number [facility] [address] [place] [address] * CBC W/O DIFFERENTIAL (01/14/2025 4:40 AM TRIMMING DEPARTMENT BLOCKER) [facility] WBC 5.0 4.0 - 10.7 x10E9/L 01/14/2025 5:03 AM TRIMMING DEPARTMENT BLOCKER [facility] RBC Count 4.20 3.90 - 5.20 x10E12/L 01/14/2025 5:[address] [facility] Hemoglobin 12.7 11.9 - 15.8 g/dL 01/14/2025 5:[address] [facility] Hematocrit 38.7 34.8 - 46.1 % 01/14/2025 5:[address] [facility] MCV 92.1 80.0 - 98.0 fL 01/14/2025 5:[address] [facility] MCH 30.2 26.7 - 33.6 pg 01/14/2025 5:[address] [facility] MCHC 32.8 31.7 - 36.3 g/dL 01/14/2025 5:[address] [facility] RDW-CV 13.1 11.3 - 14.8 % 01/14/2025 5:[address] [facility] Platelet Count 245 150 - 420 x10E9/L 01/14/2025 5:[address] [facility] MPV 9.5 7.8 - 11.4 fL 01/14/2025 5:[address] [facility] Blood BLOOD SPECIMEN / Unknown Lab Venipuncture / Unknown 01/14/2025 4:40 AM TRIMMING DEPARTMENT BLOCKER 01/14/2025 4:44 AM [facility] Washington Cui MD LAB - HEMATOLOGY ORD ERABLES Performing Organization Address City/State/[facility] Co de Phone Number [facility] [address] * SARS-COV-2 (COVID-19) FLU A/B RSV PCR RAPID (01/13/2025 7:51 AM [facility]) COVID-19 PCR Not detected Not detected, Invalid 01/13/2025 8:[address] [facility] Influenza A PCR Not detected Not detected 01/13/2025 8:[address] [facility] Influenza B PCR Not detected Not detected 01/13/2025 8:[address] [facility] RSV PCR Not detected Not detected 01/13/2025 8:[address] [facility] Microbiology SPECIMEN FROM NASOPHARYNGEAL STRUCTURE / Unknown Collection / Unknown 01/13/2025 7:51 AM TRIMMING DEPARTMENT BLOCKER 01/13/2025 7:57 AM TRIMMING DEPARTMENT BLOCKER Narrative [facility] - 01/13/2025 8:37 AM TRIMMING DEPARTMENT BLOCKER The Cepheid Xpert Xpress SARS-COV-2 has been [...] - MICROBIOLOGY O RDERABLES Performing Organization Address [facility] Co de Phone Number [facility] [address] * HCG BLOOD QUALITATIVE (01/13/2025 7:51 AM TRIMMING DEPARTMENT BLOCKER) Pathologist [facility] HCG Qual Serum Negative Negative 01/13/2025 8:13 AM TRIMMING DEPARTMENT BLOCKER [facility] Blood BLOOD SPECIMEN / Unknown Venipuncture / Unknown 01/13/2025 7:51 AM TRIMMING DEPARTMENT BLOCKER 01/13/2025 7:57 AM TRIMMING DEPARTMENT BLOCKER Washington Cui MD LAB - CHEMISTRY ORDE RABLES Performing Organization Address [facility] Co de Phone Number [facility] [address] * (ABNORMAL) SARS-COV-2 (COVID-19) AG (AMB) POCT (11/29/2024 3:05 PM TRIMMING DEPARTMENT BLOCKER) Pathologist [facility] SARS-CoV-2 Ag Positive(A) Negative [facility] Lot # [id number] [facility] Expiration Date [id number] [facility] Instrument Serial Number 0 [facility] COVID Internal Control Acceptable Acceptable [facility] Microbiology SPECIMEN FROM NASAL FOSSAE / Unknown 11/29/2024 3:05 PM TRIMMING DEPARTMENT BLOCKER Marielena Nobleford KITCHEN FOOD ASSEMBLER-CONTINUOUS WAVE OPERATOR LAB - POIN T OF CARE ORDERABLES [facility] [address] [phone] * STREP A SCREEN - POINT OF CARE (AMB) [facility] (11/29/2024 3:01 PM TRIMMING DEPARTMENT BLOCKER) Strep A Rapid POCT Negative Negative [facility] Strep A Rapid Screen Internal Control POCT Present [facility] Throat ENTIRE THROAT (SURFACE REGION OF NECK) / Unknown 11/29/2024 3:01 PM TRIMMING DEPARTMENT BLOCKER Marielena Nobleford KITCHEN FOOD ASSEMBLER-CONTINUOUS WAVE OPERATOR LAB - POIN T OF CARE ORDERABLES Performing Organization Address City/[facility]/ZIP Co de Phone Number [facility] [address] [phone] from Last 3 Months Advance Directives * [...] 9:23 PM 03/26/2023 3:23 PM Care Teams Reverberatory Furnace Operator Relationship Specialty Start Date End Date Chaim Sorto MD [address] [place] [phone] PCP - General Internal Medicine 09/29/24 Tip Srivastava MD [address] [address] Physician Gastroenterology 01/27/23 Onofre Garcia DO [address] [facility] [address] [place] [phone] Security Site Supervisor Cardiac Electrophysiology 01/19/24 Onofre Garcia DO 2 [facility] [address] [place] [phone] Security Site Supervisor Cardiac Electrophysiology 05/02/24
--- OUTSIDE RECORDS SUMMARY | 2025-02-13 13:38 | XMS_ITS | Encounter Summary ---
Author Organization [facility] Address [address] [place] [address] Care Team Providers Care Hand Bender Name Role Phone Chaim Sorto MD Primary Care Provider [phone] Reason for Visit * Reason Comments Needs Orders Written Encounter Details Date Type Department Care Team (Late st Contact Info) Description 12/08/2024 Telephone [facility] Primary Care [address] [place] [address] Chaim Sorto MD [address] [facility] [address] [place] [address] Needs Orders Written Social History [...] on file Legal Sex Female 5:49 AM INSECT CONTROL INSPECTOR Gender Identity Not on file Sexual Orientation Not on file documented as of this encounter Miscellaneous Notes * Telephone Encounter - Jacque Hathaway - 12/08/2024 8:59 AM CST Copied from [facility] #[id number]. Topic: CPA Information Request - Order or Referral Request >> Dec 08, 2024 8:55 AM Jacque Chahal wrote: Caller Name: Mary Carmen Contreras [...] in that area as well Preferred Facility/Location: [facility] Please advise appointment is schedule or today at [address] CONTROL INSPECTOR documented in this encounter Plan of Treatment Upcoming Encounters Date Type Department Care Team (Late st Contact Info) Description 06/13/2025 2:20 PM CDT Office Visit [address] [place] [address] Chaim Sorto MD [address] [place] [phone] 11/01/2025 11:00 AM INSECT CONTROL INSPECTOR Office Visit [address] [place] [address] Chaim Sorto MD [address] [place] [phone] documented as of this encounter Visit Diagnoses Not on filedocumented in this encounter Care Teams Hand Bender Relationship Specialty Start Date End Date Chaim Sorto MD PCP - General 10/24/09 documented as of this encounter
--- OUTSIDE RECORDS SUMMARY | 2025-02-13 13:38 | XMS_ITS | Encounter Summary ---
Author Organization [facility] Address [address] [place] [address] Care Team Providers Care Clinical Nursing Coordinator Name Role Phone Chaim Sorto MD Primary Care Provider [phone] Reason for Visit * Reason Comments Clinical Consult Before Scheduling Encounter Details Date Type Department Care Team (Late st Contact Info) Description 12/29/2024 Telephone [facility] Primary Care [address] [place] [address] Chaim Sorto MD [address] [facility] [address] [place] [address] Clinical Consult Before Scheduling Social [...] on file Legal Sex Female 5:49 AM [employer] SALES REPRESENTATIVE Gender Identity Not on file Sexual Orientation Not on file documented as of this encounter Miscellaneous Notes * Telephone Encounter - Angelita Talbert - 12/29/2024 12:51 PM CST Copied from [facility] #[id number]. Topic: Symptomatic Care >> Dec 29, 2024 [...] 11:00 - unable to transfer to red [employer] line, patient had to get off the phone to go back to work, states to message her via my [employer] Connection lost before call transferred. K SALES REPRESENTATIVE documented in this encounter Plan of Treatment Upcoming Encounters Date Type Department Care Team (Late st Contact Info) Description 06/13/2025 2:20 PM CDT Office Visit [address] [place] [address] Chaim Sorto MD [address] [place] [phone] 11/01/2025 11:00 AM KIOSK SALES REPRESENTATIVE Office Visit [address] [place] [address] Chaim Sorto MD [address] [place] [address] [address] [place] [address] documented as of this encounter Visit Diagnoses Not on filedocumented in this encounter Care Teams Clinical Nursing Coordinator Relationship Specialty Start Date End Date Chaim Sorto MD PCP - General 10/24/09 documented as of this encounter
[2025-02-13 14:09] VITALS: BP 115/62; PULSE 98; RESP 18; O2SAT 100
== END 2025-02-13 14:10 | disposition home or self-care (01) ==
PROVIDERS: Emergency Provider Emergency Medicine; PCP Internal Medicine
DX: K52.9 Noninfective gastroenteritis and colitis, unspecified (principal); K50.90 Crohn's disease, unspecified, without complications
CPT/HCPCS: 36415; 74177; 80053; 81003; 81025; 83690; 85025; 96361; 96374; 96375; 99284; J1171; J1790; J2405; J7030; Q9967